=== PATIENT | female | born 1965 | race Caucasian/White ===

== ENCOUNTER 2016-06-28 06:13 | Inpatient (IN) | payer OTHER ==
--- NOTE | 2016-06-20 21:29 | HP ---
HISTORY AND PHYSICAL: DATE OF ADMISSION: 06/28/16 She is entering [facility] on 06/28/16 for a left total hip replacement. CHIEF COMPLAINT: Left hip pain. HISTORY OF PRESENT ILLNESS: The patient has had left hip pain for many years and in the past year, has become more and more disabling. Her walking distance is extremely limited. She has difficulty putting on her socks and shoes and difficulty with stairs. She is on meloxicam 15 mg and has felt that has been of some help. She has been using a walker and is also using a quad cane. She is cared for by Dr. Savage. PAST MEDICAL HISTORY: In the past, she has had bronchitis, but no pneumonia. She has not had a cancer. PAST SURGICAL HISTORY: 1. Status post partial hysterectomy. 2. She had a gastric sleeve that was not successful for her. 3. 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 MEDICATIONS: 1. Mobic. 2. Omeprazole 40 mg. 3. Depakote 500 mg twice a day. 4. Citracal. 5. Vitamin B12. 6. Vitamin D. 7. Iron. 8. Ibuprofen. ALLERGIES: No known drug allergies. SOCIAL HISTORY: She is a former smoker. REVIEW OF SYSTEMS: No history of heart attack. No history of chest pain. She feels that she can walk up 2 flights of stairs without chest pain and without shortness of breath. PHYSICAL EXAMINATION GENERAL: Overweight and not acutely distressed. Antalgic gait on the left. She can walk on her toes. She has a little difficulty walking on her heels. She can do a partial squat. The left hip abduction 30 degrees, flexion 85 degrees with pain, ER 20 degrees pain, and IR neutral pain. She is able to do a straight leg raise with left lateral hip region pain. VITAL SIGNS: Also height 5 feet 11 inches, 300 pounds, temperature 97.9, blood pressure 155/104, and the pulse is 83. EXTREMITIES: The left lower extremity has small incisions from her vein strippings. The left posterior tibial pulse is not palpable including Doppler. The left dorsalis pedis pulse is present by Doppler. The left popliteal pulse is 2+. IMPRESSION: Severe arthritis of the left hip. PLAN: The plan is for a left total hip replacement. The goals, risks, and complications of the surgical care have been reviewed with the patient by me in the office and her questions were answered. We will be careful regarding the possible past history of DVT. [id number]/[facility] #: [id number] MTDD
[~2016-06-28 06:13] MED LIST: Buffered Lidocaine 1% SYR 3ML* 3 ML/SYR SYRINGE INTRADERM ONE; Dexamethasone IV* 4 MG/ML 1 ML (4 MG) IV SLOW PU ONE; Dexamethasone IV* 4 MG/ML 1 ML (4 MG) ONE; ceFAZolin 1 GM in Dextrose (*) 1 GM/50 ML BAG IVPB ONE; ceFAZolin 2 GM PREMIX(*) 2 GM/50 ML BAG IVPB ONE
[2016-06-28] MEDS ORDERED: Midazolam* 1 MG/ML 5 ML VIAL (5 MG) ONE ×2 (07:29→08:00)
[2016-06-28] MEDS ORDERED: Bupivacaine 0.5% SDV PF* 30 ML VIAL ONE (07:29)
[2016-06-28] MEDS ORDERED: KETAMINE HCL* 50 MG/ML 10 ML VIAL ONE (07:29)
[2016-06-28] MEDS ORDERED: Morphine PF AMP (0.5MG/ML)* 5 MG/10 ML AMP ONE (07:29)
[2016-06-28] MEDS ORDERED: Phenylephrine IV* 40 MCG/ML 10 ML SYRINGE ONE (07:30)
[2016-06-28] MEDS ORDERED: Propofol* 10 MG/ML 20 ML BTL IV PUSH ONE ×2 (07:30→09:19)
[2016-06-28] MEDS ORDERED: Ondansetron INJ* 2 MG/ML VIAL ONE (07:30)
[2016-06-28] MEDS ORDERED: oxyCODONE/Acetamin 5/325 MG* TAB PO PRN ×4 (08:36)
[2016-06-28] MEDS ORDERED: fentaNYL* 50 MCG/ML 2 ML VIAL (100 MCG VIAL) IV PRN (08:36)
[2016-06-28] MEDS ORDERED: DiMENhydriNATE IV* 50 MG/ML VIAL IV PUSH PRN (08:36)
[2016-06-28] MEDS ORDERED: Nalbuphine* 20 MG/ML 1 ML VIAL IV PRN ×2 (08:36)
[2016-06-28] MEDS ORDERED: Ondansetron INJ* 2 MG/ML VIAL IV PRN ×2 (08:36)
[2016-06-28] MEDS ORDERED: Naloxone* 0.4 MG/ML 1 ML VIAL IV PRN (08:36)
[2016-06-28] MEDS ORDERED: HYDROmorphone* 1 MG/ML 1 ML SYR IV PRN (08:36)
[2016-06-28] MEDS ORDERED: EPHEDrine (Pressors)* 50 MG/ML VIAL ONE (09:13)
[2016-06-28] MEDS ORDERED: Magnesium Hydroxide LIQ* 30 ML UDC PO PRN (11:25)
[2016-06-28] MEDS ORDERED: Morphine INJ* 2 MG/ML 1 ML SYRINGE IV PRN (11:25)
[2016-06-28] MEDS ORDERED: Acetaminophen TAB* 325 MG PO PRN (11:25)
--- NOTE | 2016-06-28 13:19 | RAD ---
INDICATION: Status post total left hip replacement surgery. COMPARISON: Comparison is made with a prior x-ray study from January 13, 2016. TECHNIQUE: An AP view of the pelvis was obtained. FINDINGS: The patient is status post total left hip replacement surgery. The bones and prostheses are in normal alignment. There is a small amount of air within the adjacent soft tissues consistent with the patient's recent surgery. There is moderate to severe osteoarthritic change in the right hip. IMPRESSION: STATUS POST TOTAL LEFT HIP REPLACEMENT SURGERY.
[2016-06-28] MEDS: Scopolamine 1.5 mg* PATCH TRANSDERM SCH ×2 (13:23→17:09)
[2016-06-28] MEDS: Ropivacaine* 300 MG in NS 0.9% 250 ML* 240 ML EPIDURAL SCH (13:23)
[2016-06-28] MEDS: ceFAZolin 1 GM in Dextrose (*) 1 GM/50 ML BAG IVPB SCH ×2 (16:16→23:51)
[2016-06-28] MEDS ORDERED: Warfarin TAB(*) 7.5 MG PO ONE (17:00)
[2016-06-28] MEDS: Omeprazole CAP* 20 MG PO SCH (20:48)
[2016-06-28] MEDS: Divalproex ER TAB(*) 500 MG PO SCH (22:21)
--- NOTE | 2016-06-29 01:32 | OP ---
DATE OF OPERATION: 06/28/16 - ROOM #341 DATE OF : 69 SURGICAL CARE: Left hip, 06/28/16. SURGEON: Kale England MD ASSISTANTS: edilma Santiago and CHETNA Jessica ANESTHESIOLOGIST: Dr. Daniel Cheema. ANESTHESIA: Spinal, Duramorph, epidural. PRE-OP DIAGNOSIS: Severe arthritis of the left hip. POST-OP DIAGNOSIS: Severe arthritis of the left hip. OPERATIVE PROCEDURE: Left total hip replacement. COMPONENTS: Jayashree Continuum cup cluster holes 58-mm outer diameter with 1 screw. There is an elevated liner, high density polyethylene with the elevation located posteriorly and the liner was for a 32 head. On the femoral side, the M /L Taper standard stem reduced neck size 9. The head is a ceramic head, 32-mm outer diameter +0. COMPLICATIONS: There were no complications. DRAINS: There were no drains. BLOOD LOSS: 250 mL. REPLACEMENT: Crystalloid fluids. CONDITION: Stable to the recovery room. OPERATIVE INDICATION: Severe arthritis of the left hip. She has had problems for years. It has been no longer responsive to nonoperative care and a left total hip replacement was recommended for the severe arthritis with disability. DESCRIPTION OF PROCEDURE: The patient was brought to the operating room and placed on the operating table in a supine position, then into a sitting position for the spinal, Duramorph, and epidural and then to the supine position , a Kramer catheter was inserted. The patient was then placed in the right lateral position with 2 folded blankets under the right greater trochanter and in the lateral position, the pelvis was secured over the ASIS and the sacrum with a hip positioner. The groin was carefully sealed off. The downside right leg was checked to see that there was no pressure on the peroneal nerve at the fibular head and neck, and the left hip was then given a preliminary chlorhexidine prep and the left hip was then given a final prep down to the foot. After prepping, draping and sealing off, we did our universal protocol time-out confirming Danielle Brody and our plan for left total hip replacement. We all agreed and we proceeded. A skin incision was made 5 to 6 inches in length from the greater trochanter going distally for 2 to 3 inches and curving proximally and posteriorly for 2 to 3 inches. Skin and subcu divided down to the deep fascia. Careful hemostasis was checked and achieved throughout the case utilizing electrocautery. Charnley retractor was carefully inserted. There was scarring around the greater trochanter and the trochanteric bursa. The gluteus medius and minimus were each retracted anteriorly with a blunt Hohmann retractor. The piriformis and conjoint tendon were carefully identified posteriorly. Each was marked with a #2 Surgidac and this did juan f the underlying capsule as well. Careful posterior approach of the hip was done with careful hemostasis. The hip was dislocated without difficulty. The femoral neck was marked, a little less than a fingerbreadth proximal to the lesser trochanter using the neck cutting guide for the M/L taper stem. The head and neck was removed. The head was completely eburnated on the weightbearing portion and loss of cartilage marked in the surrounding regions. On the acetabular site, she had a large medial osteophyte, a large anterior osteophyte. The acetabulum was retracted with sharp Hohmann's anteriorly and posteriorly, blunt Hohmann superiorly and inferiorly. The remains of the labrum were removed posteriorly, superiorly, and anteriorly. The medial osteophyte was removed with osteotomes and the medial soft tissues were also removed. Reaming was then done, 44, 46, 48, and 50. At 50, we had nice bleeding subchondral and cancellous bone. The acetabulum was cleaned several times with pulsed saline, emptied, and dried. A 50 Continuum cup was impacted into position in 45 degrees of abduction, 20 degrees of anteversion obtaining a nice tight fit. One screw was placed superiorly and an elevated liner was placed posteriorly. Some remaining anterior osteophyte was removed with osteotomes and rongeurs at this stage. Attention was then turned to the femoral side. On the femoral side, we used a canal finder with a box osteotome. Broaching was done 4 through 9 and at 9, we had a nice tight fit. We did a trial reduction with a 9, reduced neck, +0 head with nice fit of the soft tissues and these were chosen. The M/L Taper standard stem, size 9, reduced neck was impacted into position in 15 to 20 degrees of anteversion and the trunnion was clean and a +0 ceramic head was applied. A trial reduction had already been done with each size components and the tissues were very satisfactory. The hip was irrigated several times with several liters of pulsed saline irrigation. The soft tissues were swabbed with clean laps and hemostasis was checked and achieved with electrocautery again. Following putting the hip into position, we had a negative push, pull and extension, nice concentric fit, no tendency towards dislocation with ER, flexion was past 90 degrees with stability and the hip allowed to adduction and internal rotation of 30 degrees prior to dislocation. Closure was completed after careful hemostasis was achieved. The piriformis, conjoint tendon, posterior flap reattached to the posterior-superior greater trochanter through two drill holes using #2 Surgidac. The fascia samuel was closed with interrupted #1 Polysorb in [id number] fashion and #2 in [id number] fashion as well. The deep and superficial subcu closed with 0 Polysorb and then 2-0 Polysorb and then jefferson on the skin and the wound was irrigated several times during the closure with saline and soft tissue swab with clean laps. Dressing after jefferson with Betadine and washing and drying with Betadine-soaked release, sterile gauze, ABD pads, and then paper tape. The patient was returned to the hospital bed in the recovery room in stable and satisfactory condition having tolerated the procedure very well. CC: Dr. Savage, [facility]* [id number]/[facility] #: [id number] [facility]
[2016-06-29] MEDS ORDERED: oxyCODONE/Acetamin 5/325 MG* TAB PO PRN (06:00)
[2016-06-29] MEDS ORDERED: oxyCODONE TAB* 5 MG TAB PO PRN (06:00)
[2016-06-29] MEDS ORDERED: Ondansetron TAB* 4 MG PO PRN (06:00)
[2016-06-29] MEDS ORDERED: diPHENhydraMINE IV* 50 MG/ML 1 ml VIAL (BENADRYL) IV PRN (06:00)
[2016-06-29] MEDS: oxyCODONE/Acetamin 5/325 MG* TAB PO PRN ×4 (06:11→20:44)
[2016-06-29 07:07] LABS: Hematocrit 28 % (35-47); Hemoglobin 9.5 g/dl (12.0-16.0)
[2016-06-29 07:22] LABS: Calcium 8.4 mg/dL (8.6-10.3); EGFR African American 169.4 (>60); EGFR Non-African American 131.7 (>60); Potassium 3.9 mmol/L (3.5-5.0)
[2016-06-29] MEDS: Omeprazole CAP* 20 MG PO SCH ×2 (08:35→20:45)
[2016-06-29] MEDS: Docusate CAP* 100 MG PO SCH ×2 (08:35→20:44)
[2016-06-29] MEDS: ceFAZolin 1 GM in Dextrose (*) 1 GM/50 ML BAG IVPB SCH (08:35)
[2016-06-29] MEDS: Ropivacaine* 300 MG in NS 0.9% 250 ML* 240 ML EPIDURAL SCH (09:40)
[2016-06-29] MEDS ORDERED: Enoxaparin(*) 40 MG/0.4 ML SYR SUBCUT SCH (10:00)
[2016-06-29 13:51] LABS: Hematocrit 28 % (35-47); Hemoglobin 9.4 g/dl (12.0-16.0)
[2016-06-29] MEDS ORDERED: Warfarin TAB(*) 5 MG PO ONE (17:00)
[2016-06-29] MEDS: Divalproex ER TAB(*) 500 MG PO SCH (17:26)
[2016-06-30] MEDS: oxyCODONE/Acetamin 5/325 MG* TAB PO PRN ×3 (00:46→12:00)
[2016-06-30 05:59] LABS: Hematocrit 23 % (35-47)
[2016-06-30] MEDS: Omeprazole CAP* 20 MG PO SCH (09:25)
[2016-06-30] MEDS: Docusate CAP* 100 MG PO SCH (09:25)
[2016-06-30] MEDS ORDERED: Warfarin TAB(*) 5 MG PO ONE (11:00)
[2016-06-30 12:36] VITALS: BP 119/49
[2016-06-30 12:46] LABS: Hematocrit 28 % (35-47); Hemoglobin 9.4 g/dl (12.0-16.0)
[2016-07-01] MEDS ORDERED: Scopolomine PATCH Remove* 1 NOTE MISC PATCH OFF ONE (08:42)
== END 2016-06-30 15:40 | disposition home health service (06) | DRG 470 ==
LOC: AA 06:13 → SSU 13:48
PROVIDERS: ADMIT Orthopaedic Surgery; ATTEND Orthopaedic Surgery
PROC: 0SRB04A Replacement of Left Hip Joint with Ceramic on Polyethylene Synthetic Substitute, Uncemented, Open Approach (ICD-10-PCS; principal; 2016-06-28 07:30)
PROC: 30233N1 Transfusion of Nonautologous Red Blood Cells into Peripheral Vein, Percutaneous Approach (ICD-10-PCS; 2016-06-30)
DX: M16.12 Unilateral primary osteoarthritis, left hip (principal); Z68.41 Body mass index [BMI] 40.0-44.9, adult; D62 Acute posthemorrhagic anemia; E66.9 Obesity, unspecified; G47.30 Sleep apnea, unspecified; G43.909 Migraine, unspecified, not intractable, without status migrainosus; M25.752 Osteophyte, left hip; Z90.711 Acquired absence of uterus with remaining cervical stump; Z98.84 Bariatric surgery status; Z87.891 Personal history of nicotine dependence
CPT/HCPCS: 36415; 72170; 80048; 85014; 85018; 85610; 86850; 86900; 86901; 86922; 88304; 88311; 94760; A9270-GY; C1713; C1776; J0690; J1100; J1240; J1650; J2250; J2300; J2405; J2704; J2795; P9040

== ENCOUNTER 2017-01-21 13:41 | Emergency (ER) | payer OTHER ==
[2017-01-21 13:51] VITALS: BP 183/93
--- OUTSIDE RECORDS SUMMARY | 2017-01-21 14:55 | XMS REPORT ---
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 03/13/2007 BP Systolic 136 mmHg BP Diastolic 76 mmHg Body Temperature 98.5 F Height 71 inches 5'11" Weight 282.50 lb BMI (Body Mass Index) 39.4 kg/m2 02/19/2007 BP Systolic 124 mmHg BP Diastolic 86 mmHg Body Temperature 98.5 F Height 71 inches 5'11" Weight 284.00 lb BMI (Body Mass Index) 39.6 kg/m2 09/26/2006 BP Systolic 140 mmHg BP Diastolic 82 mmHg Height 71 inches 5'11" Weight 272.00 lb BMI (Body Mass Index) 37.9 kg/m2 08/14/2006 BP Systolic 124 mmHg BP Diastolic 78 mmHg Height 71 inches 5'11" 08/02/2006 BP Systolic 118 mmHg BP Diastolic 68 mmHg Height 71 inches 5'11" Weight 273.50 lb BMI (Body Mass Index) 38.1 kg/m2 08/01/2006 BP Systolic 130 mmHg BP Diastolic 80 mmHg Height 71 inches 5'11" Weight 273.50 lb BMI (Body Mass Index) 38.1 kg/m2 07/26/2006 BP Systolic 110 mmHg BP Diastolic 76 mmHg Height 71 inches 5'11" 07/12/2006 BP Systolic 126 mmHg BP Diastolic 78 mmHg Height 71 inches 5'11" 06/20/2006 BP Systolic 128 mmHg BP Diastolic 74 mmHg Height 71 inches 5'11" Weight 274.50 lb BMI (Body Mass Index) 38.3 kg/m2 06/06/2006 BP Systolic 128 mmHg BP Diastolic 80 mmHg Height 71 inches 5'11" Weight 269.00 lb BMI (Body Mass Index) 37.5 kg/m2 Last Menstrual Period 0 05/23/2006 BP Systolic 128 mmHg BP Diastolic 76 mmHg Height 71 inches 5'11" Weight 266.00 lb BMI (Body Mass Index) 37.1 kg/m2 04/21/2006 BP Systolic 140 mmHg BP Diastolic 90 mmHg Height 71 inches 5'11" Weight 266.00 lb BMI (Body Mass Index) 37.1 kg/m2 03/10/2006 BP Systolic 130 mmHg BP Diastolic 88 mmHg Height 71 inches 5'11" Weight 264.00 lb BMI (Body Mass Index) 36.8 kg/m2 02/21/2006 BP Systolic 128 mmHg BP Diastolic 84 mmHg Body Temperature 99.7 F Height 71 inches 5'11" Last Menstrual Period 0 02/08/2006 BP Systolic 110 mmHg BP Diastolic 76 mmHg Heart Rate 76 /min reg Respiratory Rate 12 /min not laboured Body Temperature 99.1 F Height 71 inches 5'11" Weight 265.00 lb BMI (Body Mass Index) 37.0 kg/m2 Last Menstrual Period 0 02/02/2006 BP Systolic 120 mmHg BP Diastolic 78 mmHg Height 71 inches 5'11" Weight 268.00 lb BMI (Body Mass Index) 37.4 kg/m2 Last Menstrual Period 0 11/02/2005 BP Systolic 130 mmHg BP Diastolic 86 mmHg Height 71 inches 5'11" Weight 273.00 lb BMI (Body Mass Index) 38.1 kg/m2 09/19/2005 BP Systolic 126 mmHg BP Diastolic 78 mmHg Height 71 inches 5'11" Weight 274.00 lb BMI (Body Mass Index) 38.2 kg/m2 08/19/2005 BP Systolic 132 mmHg BP Diastolic 76 mmHg Height 71 inches 5'11" Weight 272.50 lb BMI (Body Mass Index) 38.0 kg/m2 08/12/2005 Heart Rate 80 /min Respiratory Rate 16 /min Height 71 inches 5'11" Last Menstrual Period [id number] variable menses bc=vasectomy 08/12/2005 BP Systolic 122 mmHg BP Diastolic 80 mmHg Body Temperature 97.1 F Height 71 inches 5'11" Weight 272.00 lb BMI (Body Mass Index) 37.9 kg/m2 08/11/2005 BP Systolic 142 mmHg BP Diastolic 80 mmHg Body Temperature 99.1 F Height 71 inches 5'11" Weight 270.00 lb BMI (Body Mass Index) 37.7 kg/m2 06/07/2005 BP Systolic 132 mmHg BP Diastolic 82 mmHg Height 71 inches 5'11" Weight 267.00 lb BMI (Body Mass Index) 37.2 kg/m2 05/18/2005 BP Systolic 140 mmHg BP Diastolic 78 mmHg Height 71 inches 5'11" Weight 267.00 lb BMI (Body Mass Index) 37.2 kg/m2 05/06/2005 BP Systolic 140 mmHg BP Diastolic 80 mmHg Height 71 inches 5'11" Weight 264.00 lb BMI (Body Mass Index) 36.8 kg/m2 05/05/2005 BP Systolic 120 mmHg BP Diastolic 90 mmHg Body Temperature 98.7 F Height 71 inches 5'11" Weight 265.00 lb BMI (Body Mass Index) 37.0 kg/m2 05/03/2005 BP Systolic 126 mmHg BP Diastolic 80 mmHg Body Temperature 97.9 F Height 71 inches 5'11" Weight 263.00 lb BMI (Body Mass Index) 36.7 kg/m2 11/30/2004 BP Systolic 122 mmHg BP Diastolic 80 mmHg Body Temperature 98.6 F Height 71 inches 5'11" Weight 268.00 lb BMI (Body Mass Index) 37.4 kg/m2 06/24/2004 BP Systolic 138 mmHg BP Diastolic 80 mmHg Height 71 inches 5'11" 06/22/2004 BP Systolic 120 mmHg lg cuff BP Diastolic 78 mmHg lg cuff Height 71 inches 5'11" Weight 258.00 lb BMI (Body Mass Index) 36.0 kg/m2 03/25/2004 Height 71 inches 5'11" Weight 258.00 lb BMI (Body Mass Index) 36.0 kg/m2 03/12/2004 Body Temperature 98.8 F Height 71 inches 5'11" Weight 264.00 lb BMI (Body Mass Index) 36.8 kg/m2 01/09/2004 BP Systolic 140 mmHg BP Diastolic 82 mmHg Heart Rate 80 /min Respiratory Rate 16 /min Height 71 inches 5'11" Weight 257.00 lb BMI (Body Mass Index) 35.8 kg/m2 Last Menstrual Period 0 2003 BP Systolic 150 mmHg BP Diastolic 86 mmHg Weight 258.00 lb 06/13/2003 BP Systolic 110 mmHg BP Diastolic 80 mmHg Heart Rate 90 /min Respiratory Rate 16 /min Weight 245.00 lb 03/07/2003 BP Systolic 132 mmHg BP Diastolic 82 mmHg Heart Rate 70 /min Respiratory Rate 16 /min Weight 252.00 lb 01/01/2003 BP Systolic 122 mmHg BP Diastolic 82 mmHg Heart Rate 70 /min rrr Respiratory Rate 16 /min Weight 259.00 lb down 5 from oct. 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 Urine Micro Inhouse 12/21/2015 Ua WBC - 4 Ua RBC 0-1 4 Ua Casts - 4 Ua Epi 2-4 4 Ua Other - 4 Ua Glucose - 4 Ua Bilirubin - 4 Ua Ketones - 4 Ua Specific [place] 1.015 4 Ua Blood - 4 Ua PH 6.5 4 Ua Protein - 4 Ua Urobilinogen - 4 Ua Nitrite - 4 Ua Leukocytes - 4 Culture Urine Inhouse 12/21/2015 Colonies 11/22 4 CBC Auto Diff 07/13/2015 White Blood Count 6.8 10^3/uL 3.5-10.8 Red Blood Count 3.78 10^6/uL Low 4.0-5.4 Hemoglobin 11.8 g/dL Low 12.0-16.0 Hematocrit 35 % 35-47 Mean Corpuscular Volume 93 fL 80-97 Mean Corpuscular Hemoglobin 31 pg 27-31 Mean Corpuscular HGB Conc 33 g/dL 31-36 Red Cell Distribution Width 13 % 10.5-15 Platelet Count 254 10^3/uL 150-450 Mean Platelet Volume 9 um3 7.4-10.4 Abs Neutrophils 3.8 10^3/uL 1.5-7.7 Abs Lymphocytes 2.4 10^3/uL 1.0-4.8 Abs Monocytes 0.4 10^3/uL 0-0.8 Abs Eosinophils 0.1 10^3/uL 0-0.6 Abs Basophils 0.1 10^3/uL 0-0.2 Abs Nucleated RBC 0.01 10^3/uL Granulocyte % 56.4 % 38-83 Lymphocyte % 35.8 % 25-47 Monocyte % 5.8 % 1-9 Eosinophil % 1.2 % 0-6 Basophil % 0.8 % 0-2 Nucleated Red Blood Cells % 0.1 Liver Function Panel 07/13/2015 Total Protein 6.6 g/dL 6.4-8.9 Albumin 4.1 g/dL 3.2-5.2 Globulin 2.5 g/dL 2-4 Albumin/Globulin Ratio 1.6 1-3 Total Bilirubin 0.40 mg/dL 0.2-1.0 Direct Bilirubin 0.10 mg/dL 0.03-0.18 Indirect Bilirubin 0.3 mg/dL 0.3-1.0 Alkaline Phosphatase 44 U/L 34-104 Alt 11 U/L 7-52 Ast 12 U/L Low 13-39 Laboratory test finding 01/16/2015 Culture Throat Rapid Screen negative Culture Throat negative Urine Micro Inhouse 08/11/2014 Ua WBC - 5 Ua RBC 0-2 5 Ua Casts - 5 Ua Epi 1-2 5 Ua Other - 5 Ua Glucose - 5 Ua Bilirubin - 5 Ua Ketones - 5 Ua Specific [place] 1.010 5 Ua Blood NH Tr 5 Ua PH 6.0 5 Ua Protein - 5 Ua Urobilinogen - 5 Ua Nitrite - 5 Ua Leukocytes - 5 Laboratory test finding 01/22/2014 Troponin-I < 0.02 ng/mL 6 Laboratory test finding 01/22/2014 Magnesium 2.0 mg/dL 1.8-2.4 Thyroid Stim Hormone 3.65 uIU/mL 0.36-3.74 Liver Function Tests 01/22/2014 Total Protein 7.8 g/dL 6.4-8.2 Albumin 3.7 g/dL 3.4-5.0 Globulin 4.1 g/dL 1.9-4.3 Alb/Glob 0.9 ratio Bilirubin,Total 0.6 mg/dL 0.2-1.0 Bilirubin,Direct < 0.1 mg/dL 0.0-0.2 Bilirubin,Indirect 0.5 mg/dL 0.0-0.9 Sgot/Ast 27 U/L 15-37 SGPT/Alt 43 U/L 12-78 Alkaline Phosphatase 53 U/L 45-117 CBS W/Automated Diff 01/22/2014 White Blood Count 6.8 K/uL 3.1-10.7 Red Blood Count 4.14 M/uL 3.90-5.40 Hemoglobin 13.2 gm/dL 11.6-15.8 Hematocrit 38.1 % 36.0-46.1 Mean Cell Volume 92.0 fl 80.9-99.0 Mean Corpuscular HGB 31.9 pg 25.9-32.7 Mean Corpuscular HGB Conc 34.6 g/dL High 30.8-34.3 Platelet Count 233 K/uL 155-360 Red Cell Distri Width SD 40.1 fl 3-47 Red Cell Distri Width %CV 12.2 % 11.7-14.4 Mean Platelet Volume 10.5 fL 8.9-12.4 Neut% 60.6 % 40.4-72.8 Lymph % 28.5 % 17.0-46.1 [place] % 9.0 % 4.3-13.2 Eo% 1.3 % 0.0-6.6 Bas% 0.6 % 0.0-1.1 Neut# 4.10 K/uL 1.0-7.0 Lymph # 1.93 K/uL 0.8-3.4 [place] # 0.61 K/uL 0.3-0.9 Eos # 0.09 K/uL 0.0-0.5 Baso # 0.04 K/uL 0.0-0.1 Laboratory test finding 01/22/2014 CK 49 U/L 26-192 7 Troponin-I < 0.02 ng/mL 8 Basic Metabolic Panel 01/22/2014 Glucose 93 mg/dL 74-106 BUN 15 mg/dL 7-18 Creatinine 0.7 mg/dL 0.6-1.3 Glom Filtration Rate, Estimate >60 mL/min >60 If >60 mL/min >60 9 BUN/Creat 21.4 ratio Sodium 139 mmol/L 136-145 Potassium 3.9 mmol/L 3.5-5.1 Chloride 106 mmol/L 98-107 Carbon Dioxide 25 mmol/L 21-32 Anion Gap 12 mEq/L 8-16 Calcium 8.9 mg/dL 8.5-10.1 Laboratory test finding 11/09/2013 Ferritin 54.3 ng/mL 11-307 Vitamin B12 > 1450 pg/mL High 180-914 10 Folate > 20.00 ng/mL >3.99 Vitamin D, 25 Hydroxy 11/09/2013 25-Hydroxy Vitamin D2 <4.0 ng/mL 25-Hydroxy Vitamin D3 31 ng/mL 25-Hydroxy Vitamin D Total 31 ng/mL 11 Laboratory test finding 11/09/2013 Vitamin B1 Whole Blood 145 nmol/L 70- 180 12 Vitamin E 11/09/2013 Vitamin E 9.8 mg/L 5.5 - 17.0 13 Iron & Iron Binding 11/09/2013 Iron 103 g/dL 50-212 Capacity Unsaturated Iron Binding 222 g/dL Total Iron Binding Capacity 325 g/dL 250-450 % Iron Saturation 32 % 15-55 Comp Metabolic Panel 11/09/2013 Sodium 138 mmol/L 133-145 Potassium 4.4 mmol/L 3.7-5.6 Chloride 105 mmol/L 101-111 Co2 Carbon Dioxide 30 mmol/L 22-32 Anion Gap 3 mmol/L 2-11 Glucose 93 mg/dL 70-100 Blood Urea Nitrogen 10 mg/dL 6-24 Creatinine 0.59 mg/dL 0.51-0.95 BUN/Creatinine Ratio 16.9 8-20 Calcium 9.1 mg/dL 8.6-10.3 Total Protein 7.2 g/dL 6.4-8.9 Albumin 4.1 g/dL 3.2-5.2 Globulin 3.1 g/dL 2-4 Albumin/Globulin Ratio 1.3 1-3 Total Bilirubin 0.70 mg/dL 0.2-1.0 Alkaline Phosphatase 55 U/L 34-104 Alt 11 U/L 7-52 Ast 13 U/L 13-39 Egfr Non- 109.7 >60 Egfr 141.1 >60 14 CBC Auto Diff 11/09/2013 White Blood Count 5.6 10^3/uL 4.8-10.8 Red Blood Count 3.99 10^6/uL Low 4.0-5.4 Hemoglobin 12.4 g/dL 12.0-16.0 Hematocrit 36 % 35-47 Mean Corpuscular Volume 90 fL 80-97 Mean Corpuscular Hemoglobin 31 pg 27-31 Mean Corpuscular HGB Conc 35 g/dL 31-36 Red Cell Distribution Width 12 % 10.5-15 Platelet Count 243 10^3/uL 150-450 Mean Platelet Volume 7 um3 Low 7.4-10.4 Abs Neutrophils 3.0 10^3/uL 1.5-7.7 Abs Lymphocytes 2.1 10^3/uL 1.0-4.8 Abs Monocytes 0.4 10^3/uL 0-0.8 Abs Eosinophils 0.1 10^3/uL 0-0.6 Abs Basophils 0.1 10^3/uL 0-0.2 Abs Nucleated RBC 0 10^3/uL Granulocyte % 52.6 % 38-83 Lymphocyte % 37.6 % 25-47 Monocyte % 6.8 % 1-9 Eosinophil % 2.0 % 0-6 Basophil % 1.0 % 0-2 Nucleated Red Blood Cells % 0 Laboratory test finding 08/12/2013 Culture Throat Rapid Screen neg Culture Throat neg Urine Micro Inhouse 06/11/2013 Ua WBC 1-3 Ua RBC 0-2 Ua Casts - Ua Epi 1-3 Ua Other - Ua Glucose - Ua Bilirubin - Ua Ketones - Ua Specific [place] 1.010 Ua Blood - Ua PH 6.0 Ua Protein - Ua Urobilinogen - Ua Nitrite - Ua Leukocytes sm Vitamin E 05/04/2013 Vitamin E 10.3 mg/L 5.5 - 17.0 15 Laboratory test finding 05/04/2013 Vitamin B1 Whole 144 nmol/L 70-180 16 Blood Vitamin D, 25 Hydroxy 05/04/2013 25-Hydroxy Vitamin <4.0 ng/mL D2 25-Hydroxy Vitamin D3 35 ng/mL 25-Hydroxy Vitamin D Total 35 ng/mL 17 Laboratory test finding 05/04/2013 Ferritin 55.5 ng/mL 11-307 18 Vitamin B12 1342 pg/mL High 180-914 19 Folate > 20.00 ng/mL >3.99 20 Iron & Iron Binding Capacity 05/04/2013 Iron 111 g/dL 50-212 Unsaturated Iron Binding 229 g/dL Total Iron Binding Capacity 340 g/dL 250-450 % Iron Saturation 33 % 15-55 Comp Metabolic Panel 05/04/2013 Sodium 138 mmol/L 133-145 Potassium 4.5 mmol/L 3.7-5.6 Chloride 105 mmol/L 101-111 Co2 Carbon Dioxide 28 mmol/L 22-32 Anion Gap 5 mmol/L 2-11 Glucose 85 mg/dL 70-100 Blood Urea Nitrogen 15 mg/dL 6-24 Creatinine 0.59 mg/dL 0.51-0.95 BUN/Creatinine Ratio 25.4 High 8-20 Calcium 9.1 mg/dL 8.6-10.3 Total Protein 6.9 g/dL 6.4-8.9 Albumin 4.2 g/dL 3.2-5.2 Globulin 2.7 g/dL 2-4 Albumin/Globulin Ratio 1.6 1-3 Total Bilirubin 0.60 mg/dL 0.2-1.0 Alkaline Phosphatase 49 U/L 34-104 Alt 15 U/L 7-52 Ast 16 U/L 13-39 Egfr Non- 110.2 >60 Egfr 141.8 >60 21 CBC Auto Diff 05/04/2013 White Blood Count 4.5 10^3/uL Low 4.8-10.8 Red Blood Count 4.00 10^6/uL 4.0-5.4 Hemoglobin 12.3 g/dL 12.0-16.0 Hematocrit 36 % 35-47 Mean Corpuscular Volume 89 fL 80-97 Mean Corpuscular Hemoglobin 31 pg 27-31 Mean Corpuscular HGB Conc 35 g/dL 31-36 Red Cell Distribution Width 13 % 10.5-15 Platelet Count 240 10^3/uL 150-450 Mean Platelet Volume 8 um3 7.4-10.4 Abs Neutrophils 2.0 10^3/uL 1.5-7.7 Abs Lymphocytes 1.9 10^3/uL 1.0-4.8 Abs Monocytes 0.4 10^3/uL 0-0.8 Abs Eosinophils 0.1 10^3/uL 0-0.6 Abs Basophils 0.1 10^3/uL 0-0.2 Abs Nucleated RBC 0 10^3/uL Granulocyte % 44.7 % 38-83 Lymphocyte % 42.8 % 25-47 Monocyte % 8.5 % 1-9 Eosinophil % 2.7 % 0-6 Basophil % 1.3 % 0-2 Nucleated Red Blood Cells % 0.1 Comp Metabolic Panel 12/07/2012 Sodium 137 mmol/L 133-145 Potassium 3.7 mmol/L 3.5-5.0 Chloride 103 mmol/L 101-111 Co2 Carbon Dioxide 28.0 mmol/L 22-32 Anion Gap 6.0 mmol/L 2-11 Glucose 103 mg/dL High 70-100 Blood Urea Nitrogen 8 mg/dL 6-24 Creatinine 0.60 mg/dL 0.50-1.40 BUN/Creatinine Ratio 13.3 8-20 Calcium 9.1 mg/dL 8.1-9.9 Total Protein 8.0 g/dL 6.2-8.1 Albumin 4.4 g/dL 3.6-5.4 Globulin 3.6 g/dL 2-4 Albumin/Globulin Ratio 1.2 1-3 Total Bilirubin 1.0 mg/dL 0.4-1.5 Alkaline Phosphatase 71 U/L 30-110 Alt 95 U/L High 14-54 Ast 32 U/L 12-42 Egfr Non- 108.1 >60 Egfr 139.0 >60 22 Laboratory test finding 12/07/2012 Lipase 25 U/L 22-51 Troponin I 0 ng/mL 0-0.06 23 C Reactive Protein 0.8 mg/dL High Less than 0.5 CBC Auto Diff 12/07/2012 White Blood Count 7.6 10^3/uL 4.8-10.8 Red Blood Count 4.45 10^6/uL 4.0-5.4 Hemoglobin 12.6 g/dL 12.0-16.0 Hematocrit 39 % 35-47 Mean Corpuscular Volume 88 fL 80-97 Mean Corpuscular Hemoglobin 28 pg 27-31 Mean Corpuscular HGB Conc 32 g/dL 31-36 Red Cell Distribution Width 13 % 10.5-15 Platelet Count 264 10^3/uL 150-450 Mean Platelet Volume 8 um3 7.4-10.4 Abs Neutrophils 5.4 10^3/uL 1.5-7.7 Abs Lymphocytes 1.4 10^3/uL 1.0-4.8 Abs Monocytes 0.6 10^3/uL 0-0.8 Abs Eosinophils 0.1 10^3/uL 0-0.6 Abs Basophils 0.1 10^3/uL 0-0.2 Abs Nucleated RBC 0 10^3/uL Manual Differential 12/07/2012 Neutrophil % 67 % 38-83 Band % 1 % 0-8 Lymphocytes % 19 % Low 25-47 Monocytes % 9 % 0-13 Eosinophils % 1 % 0-6 Basophil % 1 % 0-2 Reactive Lymph % 2 % 0-6 RBC Morphology Normal Normal Laboratory test finding 12/07/2012 Blood Urea Nitrogen 7 mg/dL 6-24 Creatinine 12/07/2012 Creatinine 0.70 mg/dL 0.50-1.40 Egfr Non- 90.5 >60 Egfr 116.4 >60 24 Urine Micro Inhouse 12/07/2012 Ua WBC 6-8 Ua RBC 1-3 Ua Casts - Ua Epi 3-4 Ua Other - Ua Glucose - Ua Bilirubin - Ua Ketones lg Ua Specific [place] 1.005 Ua Blood nh tr Ua PH 6.0 Ua Protein - Ua Urobilinogen - Ua Nitrite - Ua Leukocytes sm CBC Auto Diff 11/19/2012 White Blood Count 7.6 10^3/uL 4.8-10.8 Red Blood Count 4.04 10^6/uL 4.0-5.4 Hemoglobin 12.2 g/dL 12.0-16.0 Hematocrit 37 % 35-47 Mean Corpuscular Volume 90 fL 80-97 Mean Corpuscular Hemoglobin 30 pg 27-31 Mean Corpuscular HGB Conc 34 g/dL 31-36 Red Cell Distribution Width 13 % 10.5-15 Platelet Count 294 10^3/uL 150-450 Mean Platelet Volume 8 um3 7.4-10.4 Abs Neutrophils 4.5 10^3/uL 1.5-7.7 Abs Lymphocytes 2.4 10^3/uL 1.0-4.8 Abs Monocytes 0.6 10^3/uL 0-0.8 Abs Eosinophils 0.1 10^3/uL 0-0.6 Abs Basophils 0 10^3/uL 0-0.2 Abs Nucleated RBC 0 10^3/uL Granulocyte % 59.7 % 38-83 Lymphocyte % 31.0 % 25-47 Monocyte % 7.5 % 1-9 Eosinophil % 1.3 % 0-6 Basophil % 0.5 % 0-2 Nucleated Red Blood Cells % 0 Comp Metabolic Panel 11/19/2012 Sodium 137 mmol/L 133-145 Potassium 4.1 mmol/L 3.5-5.0 Chloride 104 mmol/L 101-111 Co2 Carbon Dioxide 26.0 mmol/L 22-32 Anion Gap 7.0 mmol/L 2-11 Glucose 87 mg/dL 70-100 Blood Urea Nitrogen 12 mg/dL 6-24 Creatinine 0.70 mg/dL 0.50-1.40 BUN/Creatinine Ratio 17.1 8-20 Calcium 9.3 mg/dL 8.1-9.9 Total Protein 7.0 g/dL 6.2-8.1 Albumin 3.9 g/dL 3.6-5.4 Globulin 3.1 g/dL 2-4 Albumin/Globulin Ratio 1.3 1-3 Total Bilirubin 0.7 mg/dL 0.4-1.5 Alkaline Phosphatase 68 U/L 30-110 Alt 38 U/L 14-54 Ast 33 U/L 12-42 Egfr Non- 90.5 >60 Egfr 116.4 >60 25 Total Protein 24HR Urine 10/24/2012 Urine Random Total Protein 8 mg/dL Urine Total Protein/24HR 168 mg/24Hr High 0-165 Urine Collection Time 24 Urine Total Volume 2100 mL Catecholamine 24HR Urine Fract 10/15/2012 Urine Collection Duration 24 h Urine Total Volume 3350 mL Urine Norepinephrine 80 mcg/24h 15-80 Urine Epinephrine 6.4 mcg/24h <21 Urine Dopamine 335 mcg/24h 65-400 26 Laboratory test finding 10/11/2012 Genital Culture (SEE NOTE) 27 Ua Inhouse 10/11/2012 Ua Glucose - Ua Bilirubin - Ua Ketones - Ua Specific [place] 1.025 Ua Blood - Ua PH 6.0 Ua Protein - Ua Urobilinogen - Ua Nitrite - Ua Leukocytes - Comp Metabolic Panel 10/11/2012 Sodium 138 mmol/L 133-145 Potassium 4.1 mmol/L 3.5-5.0 Chloride 104 mmol/L 101-111 Co2 Carbon Dioxide 27.0 mmol/L 22-32 Anion Gap 7.0 mmol/L 2-11 Glucose 111 mg/dL High 70-100 Blood Urea Nitrogen 10 mg/dL 6-24 Creatinine 0.50 mg/dL 0.50-1.40 BUN/Creatinine Ratio 20.0 8-20 Calcium 9.0 mg/dL 8.1-9.9 Total Protein 6.4 g/dL 6.2-8.1 Albumin 3.7 g/dL 3.6-5.4 Globulin 2.7 g/dL 2-4 Albumin/Globulin Ratio 1.4 1-3 Total Bilirubin 0.5 mg/dL 0.4-1.5 Alkaline Phosphatase 74 U/L 30-110 Alt 25 U/L 14-54 Ast 20 U/L 12-42 Egfr Non- 133.4 >60 Egfr 171.6 >60 28 Laboratory test finding 10/02/2012 Insulin Level 16.6 mcIU/mL 2.6 - 24.9 29 Laboratory test finding 10/01/2012 Glucose Quantitative 85 Hemoglobin A1c 5.9 Ua Inhouse 10/01/2012 Ua Glucose - Ua Bilirubin - Ua Ketones - Ua Specific [place] 1.020 Ua Blood - Ua PH 6.0 Ua Protein - Ua Urobilinogen - Ua Nitrite - Ua Leukocytes - CBC No Diff 09/19/2012 White Blood Count 7.9 10^3/uL 4.8-10.8 Red Blood Count 3.94 10^6/uL Low 4.0-5.4 Hemoglobin 12.1 g/dL 12.0-16.0 Hematocrit 35 % 35-47 Mean Corpuscular Volume 89 fL 80-97 Mean Corpuscular Hemoglobin 31 pg 27-31 Mean Corpuscular HGB Conc 35 g/dL 31-36 Red Cell Distribution Width 12 % 10.5-15 Platelet Count 312 10^3/uL 150-450 Mean Platelet Volume 8 um3 7.4-10.4 Comp Metabolic Panel 09/19/2012 Sodium 137 mmol/L 133-145 Potassium 4.0 mmol/L 3.5-5.0 Chloride 104 mmol/L 101-111 Co2 Carbon Dioxide 26.0 mmol/L 22-32 Anion Gap 7.0 mmol/L 2-11 Glucose 117 mg/dL High 70-100 Blood Urea Nitrogen 7 mg/dL 6-24 Creatinine 0.60 mg/dL 0.50-1.40 BUN/Creatinine Ratio 11.7 8-20 Calcium 9.3 mg/dL 8.1-9.9 Total Protein 6.8 g/dL 6.2-8.1 Albumin 3.8 g/dL 3.6-5.4 Globulin 3.0 g/dL 2-4 Albumin/Globulin Ratio 1.3 1-3 Total Bilirubin 0.7 mg/dL 0.4-1.5 Alkaline Phosphatase 83 U/L 30-110 Alt 36 U/L 14-54 Ast 27 U/L 12-42 Egfr Non- 108.6 >60 Egfr 139.7 >60 30 Laboratory test finding 09/19/2012 TSH (Thyroid Stimulating 2.90 miu/mL 0.34-5.60 Horm) CBC Auto Diff 09/03/2012 White Blood Count 7.0 10^3/uL 4.8-10.8 Red Blood Count 4.06 10^6/uL 4.0-5.4 Hemoglobin 12.9 g/dL 12.0-16.0 Hematocrit 36 % 35-47 Mean Corpuscular Volume 89 fL 80-97 Mean Corpuscular Hemoglobin 32 pg High 27-31 Mean Corpuscular HGB Conc 35 g/dL 31-36 Red Cell Distribution Width 13 % 10.5-15 Platelet Count 282 10^3/uL 150-450 Mean Platelet Volume 8 um3 7.4-10.4 Abs Neutrophils 4.0 10^3/uL 1.5-7.7 Abs Lymphocytes 2.2 10^3/uL 1.0-4.8 Abs Monocytes 0.5 10^3/uL 0-0.8 Abs Eosinophils 0.2 10^3/uL 0-0.6 Abs Basophils 0.1 10^3/uL 0-0.2 Abs Nucleated RBC 0 10^3/uL Granulocyte % 58.0 % 38-83 Lymphocyte % 31.8 % 25-47 Monocyte % 6.5 % 1-9 Eosinophil % 2.9 % 0-6 Basophil % 0.8 % 0-2 Nucleated Red Blood Cells % 0 Liver Function Panel 09/03/2012 Total Protein 6.7 g/dL 6.2-8.1 Albumin 3.7 g/dL 3.6-5.4 Globulin 3.0 g/dL 2-4 Albumin/Globulin Ratio 1.2 1-3 Total Bilirubin 0.5 mg/dL 0.4-1.5 Direct Bilirubin 0.1 mg/dL 0.1-0.5 Indirect Bilirubin 0.4 mg/dL 0.3-1.0 Alkaline Phosphatase 78 U/L 30-110 Alt 39 U/L 14-54 Ast 26 U/L 12-42 Laboratory test finding 08/08/2012 Esophageal Biopsy See Note 31 Laboratory test finding 12/26/2011 Follicle Stimulating 7.71 MIU/ML 32 Hormone Lipid Profile 11/05/2011 Triglyceride 90 mg/dL 40-200 (Trig/Chol/HDL) Cholesterol 168 mg/dL Less Than 200 33 High Density Lipoprotein 29 mg/dL Low 40-60 34 Cholesterol/HDL Ratio 5.79 AVERAGE High 1-4.44 Low Density Lipoprotein 121 mg/dL High Less Than 100 35 CBC Auto Diff 11/05/2011 White Blood Count 7.2 CUMM 4.8-10.8 Red Cell Count 4.26 CUMM 4.2-5.4 Hemoglobin 14.0 g/dL 12.0-16.0 Hematocrit 39 % 35-47 Mean Corpuscular Volume 92 um3 79-97 Mean Corpuscular Hemoglob 33 pg High 27-31 Mean Corpuscular HGB [place] 36 g/dL 32-36 Redcell Distribution WDTH 13 % 10.5-15 Platelet Count 235 CUMM 150-450 Mean Platelet Volume 8.4 um3 7.4-10.4 Gran % 57.8 % 38-83 Lymph % 32.3 % 20-45 Mononuclear % 6.9 % 1-9 Eosinophil % 2.2 % 0-6 Basophil % 0.8 % 0-2 Abs Lymphs 2.3 1.0-4.8 Abs Mononuclear 0.5 0-0.8 Absolute Neutrophil Count 4.1 1.5-7.7 Abs Eosinophils 0.2 0-0.6 Abs Basophils 0.1 0-0.2 Laboratory test finding 11/05/2011 Erythrocyte Sed Rate 24 MM/HR High 0- 15 TSH 1.54 MIU/ML 0.34-5.60 Xray 06/25/2010 X-Ray, Lumbosacral Spine, Ap & Lat Minimum 4 Views wnl 36 X-Ray, Hip, Complete, Min. Of 2 Views, LT MINIMAL OA 36 Type And Screen 01/14/2009 Patient Blood Type A POSITIVE 37 Antibody Screen NEGATIVE 37 Specimen Discard Date 01/28/09 37, 38 Laboratory test finding 01/14/2009 (HCG) Serum NEGATIVE Negative 37, 39 Hemoglobin/Hematacrit 01/14/2009 Hemoglobin 13.1 g/dL 12.0-16.0 37 Hematocrit 39 % 35-47 37 Laboratory test finding 09/30/2008 TSH 1.74 MIU/ML 0.34-5.60 Comp Metabolic Panel 09/30/2008 Sodium 138 mmol/L 135-145 Potassium 4.5 mmol/L 3.5-5.0 Chloride 109 mmol/L 101-111 Co2 (Carbon Dioxide) 24.0 mmol/L 22-32 Anion Gap 5.0 mmol/L 2-11 40 Glucose 104 mg/dL High 70-100 41 BUN 9 mg/dL 6-24 Creatinine 0.50 mg/dL 0.50-1.40 One Over Creatinine 2.00 BUN/Creatinine Ratio 18.0 8-20 Calcium 8.9 mg/dL 8.1-9.9 42 Total Protein 6.6 GM/DL 6.2-8.1 Albumin 3.9 GM/DL 3.6-5.4 Globulin 2.7 GM/DL 2-4 Albumin/Globulin Ratio 1.4 1-3 Bilirubin Total 0.3 mg/dL Low 0.4-1.5 43 Alkaline Phosphatase 71 U/L 30-110 Alt (SGPT) 18 U/L 14-54 Ast (Sgot) 16 U/L 12-42 eGFR Non- 145.2 > 60 eGFR 175.7 > 60 44 CBC With Manual Diff 09/30/2008 White Blood Count 7.3 CUMM 4.8-10.8 Red Cell Count 4.24 CUMM 4.2-5.4 Hemoglobin 13.2 g/dL 12.0-16.0 Hematocrit 38 % 35-47 Mean Corpuscular Volume 91 um3 79-97 Mean Corpuscular Hemoglob 31 pg 27-31 Mean Corpuscular HGB Cone 34 g/dL 32-36 Redcell Distribution WDTH 12 % 10.5-15 Platelet Count 272 CUMM 150-450 Mean Platelet Volume 8.0 um3 7.4-10.4 Polysegmented Neutrophil 57 % 38-83 Lymphocyte 36 % 25-47 Monocyte 5 % 0-13 Eosenophil 2 % 0-6 Absolute Neutrophil Count 4.1 RBC Morphology NORMAL Laboratory test finding 09/29/2008 Cytology PAP Normal 45 Laboratory test finding 08/14/2007 Erythrocyte Sed Rate 25 MM/HR High 0- 15 CPK (Creatine Kinase) 139 U/L 0-170 Comp Metabolic Panel 08/14/2007 Sodium 141 mmol/L 135-145 Potassium 4.3 mmol/L 3.5-5.0 Chloride 108 mmol/L 101-111 Co2 (Carbon Dioxide) 26.0 mmol/L 22-32 Anion Gap 7.0 mmol/L 2-11 46 Glucose 96 mg/dL 70-105 BUN 11 mg/dL 6-24 Creatinine 0.9 mg/dL 0.5-1.4 One Over Creatinine 1.11 BUN/Creatinine Ratio 12.2 8-20 Calcium 9.1 mg/dL 8.1-9.9 47 Total Protein 7.1 GM/DL 6.2-8.1 Albumin 4.0 GM/DL 3.6-5.4 Globulin 3.1 GM/DL 2-4 Albumin/Globulin Ratio 1.3 1-3 Bilirubin Total 0.7 mg/dL 0.4-1.5 Alkaline Phosphatase 69 U/L 30-110 Alt (SGPT) 19 U/L 14-54 Ast (Sgot) 18 U/L 12-42 CBC With Manual Diff 08/14/2007 White Blood Count 8.1 CUMM 4.8-10.8 Red Cell Count 4.37 CUMM 4.2-5.4 Hemoglobin 13.5 g/dL 12.0-16.0 Hematocrit 39 % 35-47 Mean Corpuscular Volume 90 um3 79-97 Mean Corpuscular Hemoglob 31 pg 27-31 Mean Corpuscular HGB Cone 35 g/dL 32-36 Redcell Distribution WDTH 13 % 10.5-15 Platelet Count 281 CUMM 150-450 Mean Platelet Volume 9.2 um3 7.4-10.4 Polysegmented Neutrophil 59 % 38-83 Band Neutrophil 3 % 0-8 Lymphocyte 32 % 5-47 Monocyte 6 % 0-13 Absolute Neutrophil Count 5.0 Anisocytosis SLIGHT Culture Urine Inhouse 03/02/2007 Colonies no growth 48 Urine Micro Inhouse 03/02/2007 Urine Microscopic Inhouse see result notes 48 Ua Inhouse 03/02/2007 Ua Glucose - 48 Ua Bilirubin - 48 Ua Ketones - 48 Ua Specific [place] 1.030 48 Ua Blood - 48 Ua PH 5.0 48 Ua Protein - 48 Ua Urobilinogen - 48 Ua Nitrite - 48 Ua Leukocytes sm 48 Ua Inhouse 02/19/2007 Ua Glucose - Ua Bilirubin - Ua Ketones - Ua Specific [place] 1.005 Ua Blood - Ua PH 5.0 Ua Protein - Ua Urobilinogen - Ua Nitrite - Ua Leukocytes - Culture Urine Inhouse 02/19/2007 Colonies >30,000 Laboratory test finding 02/21/2006 Urine Microscopic Inhouse 1-2 WBC'S Ua Inhouse 02/21/2006 Ua Glucose - Ua Bilirubin - Ua Ketones - Ua Specific [place] 1.010 Ua Blood - Ua PH 8.0 Ua Protein - Ua Urobilinogen - Ua Nitrite - Ua Leukocytes TRACE Laboratory test finding 02/21/2006 Wet Prep NEG 49 Rigo NEG Laboratory test finding 02/02/2006 TSH 1.46 MIU/ML 0.34-5.60 CBC With Electronic Diff 02/02/2006 White Blood Count 7.3 CUMM 4.8-10.8 Abs Basophils 0 0-0.2 Abs Eosinophils 0.2 0-0.6 Absolute Neutrophil Count 4.3 1.5-7.7 Abs Lymphs 2.3 1.0-4.8 Abs Mononuclear 0.4 0-0.8 Basophil % 0.5 % 0-2 Hematocrit 40 % 35-47 Hemoglobin 13.8 g/dL 12.0-16.0 Eosinophil % 2.3 % 0-6 Gran % 59.0 % 38-83 Lymph % 32.1 % 20-45 Mean Corpuscular HGB Cone 35 g/dL 32-36 Mean Corpuscular Hemoglob 32 pg High 27-31 Mean Corpuscular Volume 91 um3 79-97 Mean Platelet Volume 8.2 um3 7.4-10.4 Mononuclear % 6.1 % 1-9 Platelet Count 292 CUMM 150-450 Red Cell Count 4.39 CUMM 4.2-5.4 Redcell Distribution WDTH 12 % 10.5-15 Lipid Profile 08/31/2005 Cholesterol/HDL Ratio 6.33 AVERAGE High 1-4.44 50 (Trig/Chol/HDL) Cholesterol 171 mg/dL Less Than 200 50, 51 Triglyceride 85 mg/dL 40-200 50 High Density Lipoprotein 27 mg/dL Low 40-60 50, 52 Low Density Lipoprotein 127 mg/dL High Less Than 100 50, 53 Ua Inhouse 08/12/2005 Ua Glucose neg 54 Ua Bilirubin neg 54 Ua Ketones neg 54 Ua Specific [place] 1.020 54 Ua Blood 2+ 54 Ua PH 6.0 54 Ua Protein neg 54 Ua Urobilinogen neg 54 Ua Nitrite neg 54 Ua Leukocytes neg 54 Laboratory test finding 08/12/2005 Urine Microscopic Inhouse see notes 54 CBC With Electronic Diff 08/10/2005 White Blood Count 7.9 CUMM 4.8-10.8 Abs Basophils 0 0-0.2 Abs Eosinophils 0.2 0-0.6 Absolute Neutrophil Count 4.6 1.5-7.7 Abs Lymphs 2.6 1.0-4.8 Abs Mononuclear 0.5 0-0.8 Basophil % 0.5 % 0-2 Hematocrit 37 % 35-47 Hemoglobin 12.9 g/dL 12.0-16.0 Eosinophil % 2.2 % 0-6 Gran % 58.0 % 38-83 Lymph % 33.3 % 20-45 Mean Corpuscular HGB Cone 35 g/dL 32-36 Mean Corpuscular Hemoglob 31 pg 27-31 Mean Corpuscular Volume 90 um3 79-97 Mean Platelet Volume 8.2 um3 7.4-10.4 Mononuclear % 6.0 % 1-9 Platelet Count 335 CUMM 150-450 Red Cell Count 4.13 CUMM Low 4.2-5.4 Redcell Distribution WDTH 12 % 10.5-15 Comp Metabolic Panel 08/10/2005 One Over Creatinine 1.42 Anion Gap 5.0 mmol/L 2-11 55 Albumin/Globulin Ratio 1.4 1-3 Albumin 3.8 GM/DL 3.6-5.4 Alkaline Phosphatase 73 U/L 30-110 Alt (SGPT) 16 U/L 14-54 Ast (Sgot) 16 U/L 12-42 BUN 10 mg/dL 6-24 Calcium 8.9 mg/dL 8.7-10.2 Chloride 105 mmol/L 101-111 Co2 (Carbon Dioxide) 27.0 mmol/L 22-32 Globulin 2.8 GM/DL 2-4 Glucose 91 mg/dL 70-105 Potassium 3.9 mmol/L 3.5-5.0 Sodium 137 mmol/L 135-145 Bilirubin Total 0.5 mg/dL 0.4-1.5 Total Protein 6.6 GM/DL 6.2-8.1 BUN/Creatinine Ratio 14.3 8-20 Creatinine 0.7 mg/dL 0.5-1.4 Laboratory test finding 08/10/2005 Erythrocyte Sed Rate 25 MM/HR High 0- 15 Amylase 58 U/L 30-125 Ua Inhouse 08/10/2005 Ua Glucose neg Ua Bilirubin neg Ua Ketones neg Ua Specific [place] 1.015 Ua Blood neg Ua PH 5.0 Ua Protein neg Ua Urobilinogen neg Ua Nitrite neg Ua Leukocytes neg Xray 07/12/2005 Transvaginal Sonogram NOT RECEIVED Laboratory test finding 06/07/2005 Pap Smear SEE REPORT Ua Inhouse 06/07/2005 Ua Glucose NEG Ua Bilirubin NEG Ua Ketones NEG Ua Specific [place] 1.015 Ua Blood NEG Ua PH 5.0 Ua Protein NEG Ua Urobilinogen NEG Ua Nitrite NEG Ua Leukocytes NEG Laboratory test finding 05/03/2005 Monospot NEGATIVE Negative Comp Metabolic Panel 05/03/2005 One Over Creatinine 1.25 Anion Gap 10.0 mmol/L 2-11 56 Albumin/Globulin Ratio 1.3 1-3 Albumin 4.1 GM/DL 3.6-5.4 Alkaline Phosphatase 72 U/L 30-110 Alt (SGPT) 22 U/L 14-54 Ast (Sgot) 18 U/L 12-42 BUN 7 mg/dL 6-24 Calcium 9.4 mg/dL 8.7-10.2 Chloride 106 mmol/L 101-111 Co2 (Carbon Dioxide) 24.0 mmol/L 22-32 Globulin 3.2 GM/DL 2-4 Glucose 85 mg/dL 70-105 Potassium 4.5 mmol/L 3.5-5.0 Sodium 140 mmol/L 135-145 Bilirubin Total 0.4 mg/dL 0.4-1.5 Total Protein 7.3 GM/DL 6.2-8.1 BUN/Creatinine Ratio 8.8 8-20 Creatinine 0.8 mg/dL 0.5-1.4 CBC With Electronic Diff 05/03/2005 White Blood Count 9.4 CUMM 4.8-10.8 Abs Basophils 0 0-0.2 Abs Eosinophils 0.1 0-0.6 Absolute Neutrophil Count 5.9 1.5-7.7 Abs Lymphs 2.8 1.0-4.8 Abs Mononuclear 0.5 0-0.8 Basophil % 0.4 % 0-2 Hematocrit 43 % 35-47 Hemoglobin 14.8 g/dL 12.0-16.0 Eosinophil % 1.2 % 0-6 Gran % 62.7 % 38-83 Lymph % 30.0 % 20-45 Mean Corpuscular HGB Cone 35 g/dL 32-36 Mean Corpuscular Hemoglob 31 pg 27-31 Mean Corpuscular Volume 90 um3 79-97 Mean Platelet Volume 8.1 um3 7.4-10.4 Mononuclear % 5.7 % 1-9 Platelet Count 348 CUMM 150-450 Red Cell Count 4.74 CUMM 4.2-5.4 Redcell Distribution WDTH 12 % 10.5-15 Laboratory test finding 05/03/2005 Culture Throat Rapid Screen NEG Ua Inhouse 05/03/2005 Ua Glucose NEG Ua Bilirubin NEG Ua Ketones NEG Ua Specific [place] 1.010 Ua Blood NEG Ua PH 5.0 Ua Protein NEG Ua Urobilinogen NEG Ua Nitrite NEG Ua Leukocytes NEG Laboratory test finding 05/03/2005 Culture Throat Neg GC/Chlamydia Dna Probe 12/02/2004 Chlamydia By Dna Probe NEGATIVE Negative 57 GC By Dna Probe NEGATIVE Negative 58 CBC With Electronic Diff 11/30/2004 White Blood Count 10.1 CUMM 4.8-10.8 Abs Basophils 0.1 0-0.2 Abs Eosinophils 0.2 0-0.6 Absolute Neutrophil Count 6.2 1.5-7.7 Abs Lymphs 3.2 1.0-4.8 Abs Mononuclear 0.5 0-0.8 Basophil % 0.6 % 0-2 Hematocrit 41 % 35-47 Hemoglobin 14.0 g/dL 12.0-16.0 Eosinophil % 1.8 % 0-6 Gran % 61.2 % 38-83 Lymph % 31.5 % 20-45 Mean Corpuscular HGB Cone 34 g/dL 32-36 Mean Corpuscular Hemoglob 31 pg 27-31 Mean Corpuscular Volume 91 um3 79-97 Mean Platelet Volume 8.2 um3 7.4-10.4 Mononuclear % 4.9 % 1-9 Platelet Count 311 CUMM 150-450 Red Cell Count 4.48 CUMM 4.2-5.4 Redcell Distribution WDTH 12 % 10.5-15 Culture Urine Inhouse 11/30/2004 Presumptive NEG Colonies NEG Laboratory test finding 11/30/2004 Urine Microscopic Inhouse EPI'S Ua Inhouse 11/30/2004 Ua Glucose NEG Ua Bilirubin NEG Ua Ketones NEG Ua Specific [place] 1.020 Ua Blood NEG Ua PH 6.5 Ua Protein NEG Ua Urobilinogen NEG Ua Nitrite NEG Ua Leukocytes TRACE Comp Metabolic Panel 11/30/2004 One Over Creatinine 1.42 Anion Gap 6.0 mmol/L 2-11 59 Albumin/Globulin Ratio 1.2 1-3 Albumin 3.8 GM/DL 3.6-5.4 Alkaline Phosphatase 70 U/L 30-110 Alt (SGPT) 21 U/L 14-54 Ast (Sgot) 20 U/L 12-42 BUN 8 mg/dL 6-24 Calcium 9.4 mg/dL 8.7-10.2 Chloride 106 mmol/L 101-111 Co2 (Carbon Dioxide) 26.0 mmol/L 22-32 Globulin 3.1 GM/DL 2-4 Glucose 96 mg/dL 70-105 Potassium 4.1 mmol/L 3.5-5.0 Sodium 138 mmol/L 135-145 Bilirubin Total 0.5 mg/dL 0.4-1.5 Total Protein 6.9 GM/DL 6.2-8.1 BUN/Creatinine Ratio 11.4 8-20 Creatinine 0.7 mg/dL 0.5-1.4 Laboratory test finding 11/30/2004 Erythrocyte Sed Rate 18 MM/HR High 0- 15 Ua Inhouse 06/22/2004 Ua Glucose NEG Ua Bilirubin NEG Ua Ketones NEG Ua Specific [place] 1.010 Ua Blood NEG Ua PH 7.5 Ua Protein NEG Ua Urobilinogen NEG Ua Nitrite NEG Ua Leukocytes NEG Laboratory test finding 03/15/2004 Culture Throat Rapid Screen NEG Culture Throat NEG CBC With Electronic Diff 12/20/2002 Platelet Count 298 CUMM 150-450 60 White Blood Count 6.6 CUMM 4.8-10.8 60 Abs Basophils 0.1 0-0.2 60 Abs Eosinophils 0.2 0-0.6 60 Abs Grans 3.3 1.5-7.7 60 Abs Lymphs 2.5 1.0-4.8 60 Abs Mononuclear 0.5 0-0.8 60 Basophil % 1.4 % 0-2 60 Hematocrit 42 % 35-47 60 Hemoglobin 14.0 g/dL 12.0-16.0 60 Eosinophil % 2.9 % 0-6 60 Gran % 50.0 % 38-83 60 Lymph % 38.4 % 20-45 60 Mean Corpuscular HGB Cone 33 g/dL 32-36 60 Mean Corpuscular Hemoglob 31 pg 27-31 60 Mean Corpuscular Volume 91 um3 79-97 60 Mean Platelet Volume 8.0 um3 7.4-10.4 60 Mononuclear % 7.3 % 1-9 60 Red Cell Count 4.59 CUMM 4.2-5.4 60 Redcell Distribution WDTH 12 % 10.5-15 60 Comp Metabolic Panel 12/20/2002 Anion Gap 7.0 mmol/L 2-11 60, 61 Albumin/Globulin Ratio 1.2 1-3 60 Albumin 3.8 GM/DL 3.6-5.4 60 BUN 8 mg/dL 6-24 60 Calcium 9.3 mg/dL 8.7-10.2 60 Chloride 106 mmol/L 101-111 60 Co2 (Carbon Dioxide) 27.0 mmol/L 22-32 60 Creatinine 0.7 mg/dL 0.5-1.4 60 Globulin 3.3 GM/DL 2-4 60 Glucose 95 mg/dL 70-105 60 Potassium 4.2 mmol/L 3.5-5.0 60 Sodium 140 mmol/L 135-145 60 Total Protein 7.1 GM/DL 6.2-8.1 60 BUN/Creatinine Ratio 11.4 8-20 60 Alkaline Phosphatase 60 U/L 30-110 60 Alt (SGPT) 17 U/L 14-54 60 Ast (Sgot) 16 U/L 12-42 60 Bilirubin Total 0.6 mg/dL 0.4-1.5 60 1 M19.91 2 THERAPEUTIC INR RANGE: 2.0 - 3.0 DVT, Pulmonary embolus, prophylaxis against venous thrombosis or systemic embolization in high risk patients. 2.5 - 3.5 Mechanical heart valves 3 S/O ENTERED 07/05/16 EXPIRES 01/05/17 PLS CALL STAT ORDERS TO [facility] [phone] FAX RESULTS TO [phone] PLS ACCEPT FOR S/O ON MONDAYS AND THURSDAYS 4 void, clear,yellow 5 fzlb-upzmy-ouczo yellow 6 0.0 - 0.045 ng/mL: Normal 0.046 - 0.5 ng/mL: Suggestive 0.6 - 1.5 ng/mL: Consistent 7 SENT RAINBOW 8 0.0 - 0.045 ng/mL: Normal 0.046 - 0.5 ng/mL: Suggestive 0.6 - 1.5 ng/mL: Consistent 9 Note: Persistent reduction for 3 months or more in an eGFR <60 mL/min/1.73 m2 defines CKD. Patients with eGFR values >/=60 mL/min/1.73 m2 may also have CKD if evidence of persistent proteinuria is present. The original MDRD equation for estimated GFR is not valid for patients less than 18 years of age. Additional information may be found at www.kdoqi.org. 10 Normal Range 180 to 914 Indeterminate Range 145 to 180 Deficient Range <145 11 -- REFERENCE VALUE -- 25-HYDROXY D TOTAL (D2+D3) Optimum levels in the healthy population are 20-50, patients with bone disease may benefit from higher levels within this range. Test Performed by: [place] [address] Merchant Patroller: Rodney Torres III, M.D. 12 Test Performed by: [place] [address] Merchant Patroller: Faith Lombardi, Ph.D. 13 Test Performed by: [place] [address] Merchant Patroller: Faith Lombardi, Ph.D. 14 Because ethnic data is not always readily available, this report includes an eGFR for both -Americans and non- Americans. The National Kidney Disease Education Program (NKDEP) does not endorse the use of the MDRD equation for patients that are not between the ages of 18 and 70, are , have extremes of body size, muscle mass, or nutritional status, or are non- or non-. According to the National Kidney Foundation, irrespective of diagnosis, the stage of the disease is based on the level of kidney function: Stage Description GFR(mL/min/1.73 m(2)) 1 Kidney damage with normal or decreased GFR 90 2 Kidney damage with mild decrease in GFR 60-89 3 Moderate decrease in GFR 30-59 4 Severe decrease in GFR 15-29 5 Kidney failure <15 (or dialysis) 15 Test Performed by: [place] [address] Merchant Patroller: Faith Lombardi, Ph.D. 16 Test Performed by: [place] [address] Merchant Patroller: Faith Lombardi, Ph.D. 17 -- REFERENCE VALUE -- 25-HYDROXY D TOTAL (D2+D3) Optimum levels in the healthy population are 20-50, patients with bone disease may benefit from higher levels within this range. Test Performed by: [address] [address] Merchant Patroller: Rodney Torres III, M.D. 18 FASTING 19 Normal Range 180 to 914 Indeterminate Range 145 to 180 Deficient Range <145 20 FASTING 21 Because ethnic data is not always readily available, this report includes an eGFR for both -Americans and non- Americans. The National Kidney Disease Education Program (NKDEP) does not endorse the use of the MDRD equation for patients that are not between the ages of 18 and 70, are , have extremes of body size, muscle mass, or nutritional status, or are non- or non-. According to the National Kidney Foundation, irrespective of diagnosis, the stage of the disease is based on the level of kidney function: Stage Description GFR(mL/min/1.73 m(2)) 1 Kidney damage with normal or decreased GFR 90 2 Kidney damage with mild decrease in GFR 60-89 3 Moderate decrease in GFR 30-59 4 Severe decrease in GFR 15-29 5 Kidney failure <15 (or dialysis) 22 Because ethnic data is not always readily available, this report includes an eGFR for both -Americans and non- Americans. The National Kidney Disease Education Program (NKDEP) does not endorse the use of the MDRD equation for patients that are not between the ages of 18 and 70, are , have extremes of body size, muscle mass, or nutritional status, or are non- or non-. According to the National Kidney Foundation, irrespective of diagnosis, the stage of the disease is based on the level of kidney function: Stage Description GFR(mL/min/1.73 m(2)) 1 Kidney damage with normal or decreased GFR 90 2 Kidney damage with mild decrease in GFR 60-89 3 Moderate decrease in GFR 30-59 4 Severe decrease in GFR 15-29 5 Kidney failure <15 (or dialysis) 23 Reference Range and Interpretation: TnI (ng/mL) Interpretation Less Than 0.06 ng/mL Not supportive of diagnosis of NV 0.06 - 0.50 ng/mL Indeterminate: suggest serial studies if clinically indicated. Greater than 0.5 ng/mL Consistent with diagnosis of NV 24 Because ethnic data is not always readily available, this report includes an eGFR for both -Americans and non- Americans. The National Kidney Disease Education Program (NKDEP) does not endorse the use of the MDRD equation for patients that are not between the ages of 18 and 70, are , have extremes of body size, muscle mass, or nutritional status, or are non- or non-. According to the National Kidney Foundation, irrespective of diagnosis, the stage of the disease is based on the level of kidney function: Stage Description GFR(mL/min/1.73 m(2)) 1 Kidney damage with normal or decreased GFR 90 2 Kidney damage with mild decrease in GFR 60-89 3 Moderate decrease in GFR 30-59 4 Severe decrease in GFR 15-29 5 Kidney failure <15 (or dialysis) 25 Because ethnic data is not always readily available, this report includes an eGFR for both -Americans and non- Americans. The National Kidney Disease Education Program (NKDEP) does not endorse the use of the MDRD equation for patients that are not between the ages of 18 and 70, are , have extremes of body size, muscle mass, or nutritional status, or are non- or non-. According to the National Kidney Foundation, irrespective of diagnosis, the stage of the disease is based on the level of kidney function: Stage Description GFR(mL/min/1.73 m(2)) 1 Kidney damage with normal or decreased GFR 90 2 Kidney damage with mild decrease in GFR 60-89 3 Moderate decrease in GFR 30-59 4 Severe decrease in GFR 15-29 5 Kidney failure <15 (or dialysis) 26 Test Performed by: [facility] - [address] [address] Merchant Patroller: Rodney Torres III, M.D. 27 RUN DATE: 10/14/12 [facility] LAB LIVE PAGE 1 RUN TIME: [address] [place] [id number] Specimen Inquiry Name: LAITH HANKINS : [address]: Kayy BASILIO Acct: [id number] Unit: [id number] AGE: 47 Location: [facility] Re10/11/12 SEX: F Status: REG REF SPEC: [id number] ELYSE: 10/11/12-164 [facility] DR: Kayy BASILIO REQ: [id number] RECD: 10/12/129615 STATUS: COMP _ SOURCE: VAGINAL SPDESC: ORDERED: Genital Culture QUERIES: Medent Number [id number] Procedure Result Verified Site Genital Culture Final 10/14/12- 1111 ML Organism 1 NORMAL NOLVIA Quantity 3+ END OF REPORT * ML=Testing performed at Main Lab DEPARTMENT OF PATHOLOGY, [address] [place] [address] Suman Hernandez M.D. Director [facility] Permit #[id number] 28 Because ethnic data is not always readily available, this report includes an eGFR for both -Americans and non- Americans. The National Kidney Disease Education Program (NKDEP) does not endorse the use of the MDRD equation for patients that are not between the ages of 18 and 70, are , have extremes of body size, muscle mass, or nutritional status, or are non- or non-. According to the National Kidney Foundation, irrespective of diagnosis, the stage of the disease is based on the level of kidney function: Stage Description GFR(mL/min/1.73 m(2)) 1 Kidney damage with normal or decreased GFR 90 2 Kidney damage with mild decrease in GFR 60-89 3 Moderate decrease in GFR 30-59 4 Severe decrease in GFR 15-29 5 Kidney failure <15 (or dialysis) 29 Test Performed by: [address] [address] Merchant Patroller: Rodney Torres III, M.D. 30 Because ethnic data is not always readily available, this report includes an eGFR for both -Americans and non- Americans. The National Kidney Disease Education Program (NKDEP) does not endorse the use of the MDRD equation for patients that are not between the ages of 18 and 70, are , have extremes of body size, muscle mass, or nutritional status, or are non- or non-. According to the National Kidney Foundation, irrespective of diagnosis, the stage of the disease is based on the level of kidney function: Stage Description GFR(mL/min/1.73 m(2)) 1 Kidney damage with normal or decreased GFR 90 2 Kidney damage with mild decrease in GFR 60-89 3 Moderate decrease in GFR 30-59 4 Severe decrease in GFR 15-29 5 Kidney failure <15 (or dialysis) 31 OPERATION/PROCEDURE Colonoscopy with biopsy DIAGNOSIS: PART 1: "COLON, RANDOM BIOPSIES": ISCHEMIC TYPE MUCOSAL CHANGES. PART 2: "SIGMOID COLON POLYPS, BIOPSY": HYPERPLASTIC POLYPS. PART 3: "RECTUM, POLYPECTOMY": HYPERPLASTIC POLYPS. PART 4: "DUODENUM, RANDOM BIOPSIES": SMALL BOWEL MUCOSA WITHOUT SIGNIFICANT PATHOLOGICAL ABNORMALITY. PART 5: "ESOPHAGUS, BIOPSIES": FRAGMENTS OF GASTRIC AND ESOPHAGEAL MUCOSA OF JUNCTIONAL ORIGIN DEMONSTRATING REACTIVE CHANGES IN A BACKGROUND INFLAMMATION CONSISTENT WITH ESOPHAGITIS AND GASTRITIS, NONSPECIFIC, MILD TO MODERATE. JUAREZ/praveen INTERPRETATION COMMENT Part 1: Localized ischemia includes resolving acute colitis, vascular, mechanical, diverticular sampling and drugs (NSAID). GROSS Part 1; "RANDOM COLON BIOPSIES". The specimen is received in an appropriately labeled container. This contains approximately ten rounded kaplan colored pieces of soft tissue measuring up to 0.4 cm.; filtered and submitted in toto within a single cassette. Part 2; "SIGMOID POLYPS". The specimen is received in an appropriately labeled container. This contains two rounded kaplan colored pieces of soft tissue measuring up to 0.4 and 0.7 cm.; filtered and submitted in toto within a single cassette. GROSS (Continued) Part 3; "RECTAL POLYPS". The specimen is received in an appropriately labeled container. This contains two rounded kaplan colored pieces of soft tissue measuring up to 0.3 cm.; filtered and submitted in toto within a single cassette. Part 4; "RANDOM DUODENAL BIOPSIES". The specimen is received in an appropriately labeled container. This contains five rounded kaplan colored pieces of soft tissue measuring up to 0.1-0.5 cm.; filtered and submitted in toto within a single cassette. Part 5; "ESOPHAGEAL BIOPSIES". The specimen is received in an appropriately labeled container. This contains seven rounded kaplan colored pieces of soft tissue measuring up to 0.3 cm.; filtered and submitted in toto within a single cassette. JW/clf MICROSCOPIC Part 1: Sections reveal eroded colonic mucosa with well-oriented colonic crypts, with abbreviated maturation of lining cells to the surface. The stroma contains a fibrous condensation with depletion of superficial goblet cells consistent with ischemic injury. Parts 2,3: Sections show colonic mucosa lined by an increased number of goblet cells. The glands have a serrated, saw tooth appearance. The nuclei are bland, and basal. Part 4: Sections reveal villiform mucosa with well-oriented crypts, with normal maturation of lining cells to the surface. The stroma contains a normal degree of lymphoplasmacytic infiltration. Part 5: Specimen is composed of a mixture of fragments from the esophagus, and stomach. In one piece, there is the combination of squamous and columnar superficial epithelium consistent with junctional mucosa. The squamous component is acanthotic and demonstrates mild spongiosis with exocytosis of inflammatory cells. The glandular component demonstrates mild reactive distortion, and branching associated with varying degrees of chronic inflammation. Goblet cell metaplasia characteristic of Flores type metaplasia is not observed. PRE OPERATIVE DIAGNOSIS Abdominal pain REVIEW CODE CODE: I DONAVAN Ivory MD 08/09/12 1201 32 Normally menstruating females - Follicular phase 3 - 9 - Mid-cycle peak 4 - 23 - Luteal phase 1 - 6 Postmenopausal females 16 - 114 33 CHOLESTEROL INTERPRETATION: Desirable: Less than 200 MG/DL Borderline-High Risk: 200-239 MG/DL High-Risk: 240 MG/DL and over 34 HDL INTERPRETATION: Undesirable: High Risk: Less than 40 MG/DL Desirable: Low Risk: Greater than 60 MG/DL 35 LDL INTERPRETATION: Low Risk Optimal Level: LDL Less than 100 MG/DL Near or Above Optimal: LDL 100-129 MG/DL Borderline High Risk: LDL 130-159 MG/DL High Risk: LDL 160-189 MG/DL Very High Risk: LDL Greater than 189 MG/DL 36 L/S spine films are unremarkable. [address] GREEN AT [phone] PRE-OP SURGERY IN [place] 01/21/09 38 PREADMISSION TESTING SAMPLES FOR BLOOD BANK WILL BE HELD FOR 14 DAYS FROM THE DATE OF COLLECTION *IF* THE FOLLOWING CRITERIA ARE MET: 1) THE PATIENT HAS *NOT* BEEN IN THE LAST 3 MONTHS. 2) THE PATIENT HAS *NOT* BEEN TRANSFUSED IN THE LAST 3 MONTHS. PREADMISSION TESTING SAMPLES WILL *NOT* BE HELD FOR 14 DAYS FROM PATIENTS WHO IN THE LAST 3 MONTHS: 1) HAVE BEEN 2) HAVE BEEN TRANSFUSED THESE PATIENTS *MUST* BE COLLECTED WITHIN 3 DAYS OF THE SURGERY DATE. 39 If is still suspected, please repeat test after 48 to 72 hours. . 40 Anion gap measurement may be of limited value in the presence of any alkalosis, especially in a combined acid base disorder. . 41 Note change in reference range as of 10/11/07. The change was based on recommendations from the [place] [employer]. 42 Please note change in reference range effective 07 . 43 A metabolite of Naproxen, O-desmethylnaproxen, has been shown to interfere with the Jendrassik-Maunaloa method for measuring total bilirubin. Samples from patients who have taken Naproxen have shown spurious elevation in total bilirubin levels. 44 Because ethnic data is not always readily available, this report includes an eGFR for both -Americans and non- Americans. The National Kidney Disease Education Program (NKDEP) does not endorse the use of the MDRD equation for patients that are not between the ages of 18 and 70, are , have extremes of body size, muscle mass, or nutritional status, or are non- or non-. According to the National Kidney Foundation, irrespective of diagnosis, the stage of the disease is based on the level of kidney function: Stage Description GFR(mL/min/1.73 m(2)) 1 Kidney damage with normal or decreased GFR 90 2 Kidney damage with mild decrease in GFR 60-89 3 Moderate decrease in GFR 30-59 4 Severe decrease in GFR 15-29 5 Kidney failure <15 (or dialysis) 45 ---- RUN DATE: 10/01/08 [facility] NMI LIVE PAGE 1 RUN TIME: 1237 Specimen Inquiry RUN USER: INTERFACE -- Name: NHILAITH J Status: REG REF Re09/29/08 Age/Sex: 42/F Unit#: [id number] Location: [facility] : [birth year] -- Specimen: [id number] SOUT Spec Date: 09/30/[address]: Eliceo johnson MD Spec Type: CYTOLOGY Received: 10/01/08 Copies to: SOURCE ECTOCERVICAL/ENDOCERVICAL Thin Prep with Reflex HPV Test PATIENT INFORMATION ACTUAL COLLECTION DATE: 09/30/08 ? No POST MENOPAUSAL? No HYSTERECTOMY? No LAST MENSTRUAL PERIOD: 08/28/08 ADEQUACY OF SPECIMEN Satisfactory for evaluation * Transformation zone component identified * DIAGNOSIS NEGATIVE FOR INTRAEPITHELIAL LESION OR MALIGNANCY * This Pap test was evaluated with the assistance of the siOPTICAPrep Pap Test Imaging System. The Pap Smear is a screening test designed to aid in the detection of premalign ant and malignant conditions of the uterine cervix. It is not a diagnostic procedure a nd should not be used as the sole means of detecting cervical cancer. Both false- positiv e and false-negative reports do occur. Depending on your risk status, a Pap smear jenny uld be obtained and evaluated every one to three years. Final Interpretation electronically signed by: Javier MAHAN(ASCP) 10/01/08 1236 -- -- DEPARTMENT OF PATHOLOGY, [address] [place] [address] [facility] Permit #[id number] Suman Hernandez M.D. Director Ernestine Phipps M.D. Sap Hana Architect Dir john paul -- 46 Anion gap measurement may be of limited value in the presence of any alkalosis, especially in a combined acid base disorder. . 47 Please note change in reference range effective 07 . 48 0-3 wbc, 4-5 epi, sediment 49 No trichomonads, no clue cells 50 FASTING 51 Classification: Desirable . 52 Classification: Low . 53 CALCULATED LDL APPROXIMATES THE VALUE OF A DIRECT LDL MEASUREMENT. Classification: Near or above optimal . 54 Micro: occ motile radha, 0-2 RBC, 0-2 WBC. SL 55 Anion gap measurement may be of limited value in the presence of any alkalosis, especially in a combined acid base disorder. . 56 Anion gap measurement may be of limited value in the presence of any alkalosis, especially in a combined acid base disorder. . 57 * This method is approved for detection of Chlamydia trachomatis in Endocervical, Male Urethral and Conjunctival Specimens only. POSITIVE RESULT IN A POPULATION WITH LOW PREVALENCE OF DISEASE SHOULD BE INTERPRETED PRESUMPTIVE; INTERPRET RESULTS IN LIGHT OF HISTORY PHYSICAL FINDINGS . 58 * This method is approved for detection of Neisseria Gonnorrhoeae in Endocervical and Male Urethral Specimens only. POSITIVE RESULT IN A POPULATION WITH LOW PREVALENCE OF DISEASE SHOULD BE INTERPRETED PRESUMPTIVE; INTERPRET RESULTS IN LIGHT OF HISTORY PHYSICAL FINDINGS. . 59 Anion gap measurement may be of limited value in the presence of any alkalosis, especially in a combined acid base disorder. . 60 hold for apt 61 Anion gap measurement may be of limited value in the presence of any alkalosis, especially in a combined acid base disorder. . Procedures Date CPT Code Description Status Comment 06/01/2016 92396 Electrocardiogram Complete Completed 01/13/2016 52613 Radiologic Exam Hip Unilateral Completed With Pelvis 2-3 Views 01/13/2016 64223 X-Ray, L-S Spine, Ap & Completed Lateral 01/20/2015 Mammogram Completed 2015:benign 11/04/13: Discussed mammo screening interval; pt elected for q2yr screens 03/28/2014 64894 SC/Im Injections Completed 12/07/2012 55959 SC/Im Injections Completed 12/07/2012 48240 Oximetry, Single Completed 12/07/2012 03621 X-Ray Chest Two Views Completed 07/21/2012 Colonoscopy Completed 07/2012: 4 small (up to 8mm) polyps; 1 bx showed ischemic changes 07/20/201029847 Inject/Drain Joint/Bursa Major Completed 06/25/2010 74682 X-Ray, Lumbar Spine Complete, Completed Obl 06/25/2010 90216 X-Ray Hip Two Or More Views Completed 01/29/2010 0 Payment Completed 03/24/2009 0 Payment Completed 09/28/2007 0 Payment Completed 04/12/2006 0 Payment Completed 08/10/2005 84301 X-Ray Abdomen, Single View Completed 06/07/2005 23850 Electrocardiogram Complete Completed 05/05/2005 73953 Bronchospasm Evaluation Pre Completed & Post 2003 86515 X-Ray Knee, Complete Completed Encounters Type Date Location Provider CPT E/M Dx Office Visit 01/03/2017 1:40p Main Office Taylor Quintero 04621 I80.01 I83.10 E66.01 Z68.41 Office Visit 11/28/2016 11:30a Main Office Eliceo Savage M.D. 14770 R19.7 N36.42 Z23 Z68.41 Office Visit 06/13/2016 12:55p Main Office Eliceo Savage M.D. 64381 H81.10 Office Visit 06/01/2016 3:00p Main Office Eliceo Savage M.D. 54750 Z01.818 M16.0 M25.552 K21.9 G43.009 G47.30 R19.7 F52.31 Office Visit 01/13/2016 3:30p Main Office Eliceo Savage M.D. 70798 M54.5 M54.17 M79.605 M79.604 M25.552 Office Visit 12/25/2015 2:30p Main Office Eliceo Savage M.D. 24322 M54.5 M54.17 M79.605 M79.604 R39.15 Office Visit 12/21/2015 3:25p Main Office Vazquze Vasquez M.D. 56422 M25.552 R35.0 E66.01 Z68.41 Office Visit 07/10/2015 4:45p Main Office Eliceo Savage M.D. 56847 K21.9 G43.009 G47.30 L29.9 Office Visit 01/16/2015 10:15a Main Office Eliceo Savage M.D. 43667 J03.90 Office Visit 01/09/2015 4:00p Main Office Eliceo Savage M.D. 08576 K21.9 G43.009 G47.30 Z12.31 Z23 Z68.41 E66.01 Office Visit 08/11/2014 4:30p Main Office Eliceo Savage M.D. 02861 530.81 724.5 Office Visit 07/08/2014 3:00p Main Office Eliceo Savage M.D. 46319 346.10 784.0 530.81 300.00 Office Visit 04/02/2014 2:15p Main Office Eliceo Savage M.D. 26510 723.1 728.85 719.58 Office Visit 03/28/2014 1:45p Main Office David Duran D.O. 93444 723.1 729.1 723.5 728.85 Office Visit 02/05/2014 3:00p Main Office Eliceo Savage M.D. 27913 346.10 786.50 300.00 278.00 Office Visit 01/25/2014 9:45a Main Office Eliceo Savage M.D. 45825 300.00 786.50 V04.81 V07.2 Office Visit 11/26/2013 4:30p Main Office Eliceo Savage M.D. 55292 346.10 530.81 Office Visit 11/04/2013 8:55a Main Office Eliceo Savage M.D. 20210 346.10 530.81 V76.10 Office Visit 10/04/2013 11:00a Main Office Eliceo Savage M.D. 21916 451.0 Office Visit 08/12/2013 3:45p Main Office Eliceo Savage M.D. 92125 784.1 Office Visit 06/11/2013 11:30a Main Office Eliceo Savage M.D. 14266 724.5 Office Visit 12/07/2012 10:15a Main Office Eliceo Savage M.D. 06675 724.5 786.52 789.06 558.9 Office Visit 11/02/2012 3:30p Main Office Eliceo Savage M.D. 64364 V70.0 787.91 536.3 790.21 788.43 788.41 596.51 530.81 346.10 V76.10 Office Visit 10/11/2012 3:00p Main Office Kayy Orta P.AKenyatta 20068 788.42 788.43 796.2 616.10 Office Visit 10/01/2012 4:20p Main Office Kayy Orta P.A. 22321 788.42 788.43 278.00 790.21 796.2 Office Visit 08/28/2012 4:00p Main Office Eliceo Savage M.D. 73664 346.10 784.0 787.91 530.11 Office Visit 05/28/2012 4:00p Main Office Eliceo Savage M.D. 32673 784.0 346.10 787.91 Office Visit 02/27/2012 3:45p Main Office Eliceo Savage M.D. 72541 784.0 346.10 787.91 305.1 796.2 Office Visit 12/23/2011 4:00p Main Office Eliceo Savage M.D. 21166 784.0 346.10 787.91 992.8 Office Visit 11/02/2011 3:30p Main Office Eliceo Savage M.D. 55348 V70.0 789.03 787.91 780.52 784.0 346.10 V77.91 700 278.01 780.57 V76.10 V04.81 V07.2 Office Visit 08/06/2010 2:30p Main Office Eliceo Savage M.D. 49180 729.5 726.5 Office Visit 07/20/2010 10:00a Main Office Eliceo Savage M.D. 62515 719.45 724.2 788.30 726.5 Office Visit 07/06/2010 2:30p Main Office Eliceo Savage M.D. 19712 729.5 724.2 719.45 Office Visit 06/25/2010 10:15a Main Office Eliceo Savage M.D. 35324 729.5 724.2 719.45 Office Visit 06/14/2010 4:45p Main Office Eliceo Savage M.D. 02624 729.5 V76.10 454.9 Office Visit 09/14/2009 2:20p Main Office Taylor Quintero 65490 618.02 616.10 Office Visit 07/31/2009 4:15p Main Office Eliceo Savage M.D. 70379 530.81 780.57 V19.8 Office Visit 01/28/2009 11:15a Main Office Eliceo Savage M.D. 06988 530.81 780.79 780.57 788.30 V04.81 Office Visit 11/19/2008 3:00p Main Office Eliceo Savage M.D. 18504 530.81 789.06 625.0 Office Visit 09/29/2008 3:30p Main Office Eliceo Savage M.D. 19722 530.81 789.06 625.0 780.79 346.10 V76.2 V76.10 V72.31 700 Office Visit 07/01/2008 4:15p Main Office Eliceo Savage M.D. 92097 305.1 719.46 780.79 V06.1 v06.1 V07.2 v07.2 Office Visit 01/14/2008 4:30p Main Office Eliceo Savage M.D. 92197 386.11 380.22 Office Visit 10/08/2007 2:30p Main Office Eliceo Savage M.D. 93173 724.2 724.4 Office Visit 09/07/2007 9:30a Main Office Eliceo Savage M.D. 58728 724.2 724.4 682.6 Office Visit 08/14/2007 1:15p Main Office Eliceo Savage M.D. 19294 729.5 454.9 682.6 724.4 724.2 Office Visit 03/13/2007 3:00p [place] [address] 381.00 386.11 Office Visit 02/19/2007 9:45a Main Office klepack 55714 724.2 Office Visit 09/26/2006 4:00p Main Office Eliceo Savage M.D. 85152 300.4 Office Visit 08/14/2006 11:10a Main Office klerockyck 20168 727.04 Office Visit 08/01/2006 3:30p Main Office MalloryrockyTerrie dailycy 90529 278.00 278.00 Office Visit 07/26/2006 4:00p Main Office Eliceo Savage M.D. 72849 300.4 780.79 Office Visit 07/12/2006 2:00p Main Office klepack 90406 727.04 Office Visit 06/20/2006 4:30p Main Office Eliceo Savage M.D. 93968 727.04 727.04 Office Visit 06/06/2006 3:15p Main Office Eliceo Savage M.D. 75425 727.04 Office Visit 05/23/2006 3:15p Main Office Eliceo Savage M.D. 45218 300.4 780.79 Office Visit 04/21/2006 4:15p Main Office Eliceo Savage M.D. 53905 300.4 780.79 Office Visit 03/10/2006 10:15a Main Office Eliceo Savage M.D. 60444 300.4 Office Visit 02/21/2006 10:00a Main Office Eliceo Savage M.D. 16395 788.1 112.1 Office Visit 02/08/2006 1:45p Main Office Eliceo Savage M.D. 04410 787.01 787.91 Office Visit 02/02/2006 8:30a Main Office Eliceo Savage M.D. 58666 300.4 Office Visit 11/15/2005 3:30p Main Office Terrie Larsoncy 69355 272.8 278.00 Office Visit 11/02/2005 3:45p Main Office ramin 14053 564.09 272.8 Office Visit 09/19/2005 3:00p Main Office ramin 62486 564.09 272.8 455.3 Office Visit 08/19/2005 3:15p Main Office ramin 47316 564.09 Office Visit 08/12/2005 5:15p Main Office Vazquez Vasquez M.D. 41049 724.2 789.07 782.1 Office Visit 08/11/2005 3:20p Main Office Selena Cameron, N.P. 63026 789.07 623.9 782.1 Office Visit 08/10/2005 3:25p Main Office Selena Cameron, N.P. 12165 789.07 564.09 Office Visit 06/07/2005 9:40a Main Office Selena Cameron, N.P. 00595 V72.31 787.02 785.2 620.2 785.1 788.63 Office Visit 05/18/2005 8:55a Main Office ramin 40538 493.10 Office Visit 05/05/2005 9:15a Main Office ramin 85171 493.10 462 786.2 Office Visit 05/03/2005 9:20a Main Office Selena Cameron, N.P. 90854 462 788.41 787.91 Office Visit 11/30/2004 3:10p Main Office Vanessamadison Selena, N.P. 70303 625.0 789.03 788.63 Office Visit 06/24/2004 11:00a Main Office Vazquez Vasquez M.D. 79569 454.1 Office Visit 06/22/2004 10:40a Main Office Selena Cameron, N.P. 15661 719.49 626.8 454.1 Office Visit 03/25/2004 4:20p Main Office Selena Cameron, N.P. 39650 786.2 995.3 Office Visit 03/12/2004 10:20a Main Office Selena Cameron, N.P. 43440 786.2 381.01 Office Visit 01/09/2004 1:45p Main Office Vazquez Vasquez M.D. 76479 530.81 346.10 309.1 305.1 Office Visit 2003 2:15p Main Office Vazquez Vasquez M.D. 89527 530.81 346.10 309.1 305.1 844.9 Office Visit 2003 10:00a Main Office Vazquez Vasquez M.D. 27732 530.81 346.10 309.1 305.1 844.9 Office Visit 06/13/2003 10:00a Main Office Vazquez Vasquez M.D. 18947 530.81 346.10 309.1 Office Visit 03/07/2003 10:15a Main Office Vazquez Vasquez M.D. 96049 309.1 346.10 530.81 Office Visit 01/01/2003 2:45p Main Office Vazquez Vasquez M.D. 25308 309.1 346.10 Office Visit 11/15/2002 4:00p Main Office Vazquez Vasquez M.D. 76014 300.4 309.1 308.9 530.81 Office Visit 10/10/2002 4:30p Main Office Vazquez Vasquez M.D. 06098 789.07 309.1 Office Visit 10/02/2002 2:20p Main Office Selena Cameron, N.P. 01248 789.07 623.5 308.9 Office Visit 09/17/2002 2:00p Main Office Selena Cameron, N.P. 92856 626.4 V72.4 616.0 789.03 Plan of Care Future Appointment(s):02/06/2017 2:00 pm - Eliceo Savage M.D. at Main Office
--- NOTE | 2017-01-21 14:56 | UC ---
Lower Extremity/Ankle HPI - HPI Summary HPI Summary: 51 y/o female presents to the urgent care c/o rt leg pain since yesterday. Pt reports pain is in the upper thigh and calf, 8/10 specially with touch and ambulation. Pt reports she has Hx of thrombophlebitis. she has an recent Venous Doppler done on 01/03/2017 Dx with a superficial thrombus varicose vein. Now her calf is red, painful and swollen. She has an appt with vascular DR on 2016. She had a Hip replacement Sx on 06/28/2016. She is not in blood thinners, Pt denies SOB, chest pain, N/V/D, abdominal pain. She is not OCP and doesn't smoke. - History of Current Complaint Chief Complaint: UCLowerExtremity Stated Complaint: RIGHT LEG COMPLAINT Time Seen by Provider: 01/21/17 14:54 Hx Obtained From: Patient Hx Last Menstrual Period: menopausal ?: No Onset/Duration: Gradual Onset, Lasting Weeks - 2 weeks, Worse Since - yesterday Severity Initially: Mild Severity Currently: Moderate Pain Intensity: 8 Pain Scale Used: 0-10 Numeric Aggravating Factor(s): Ambulation, Other - touch Alleviating Factor(s): Rest, OTC Meds Able to Bear Weight: Yes - Allergies/Home Medications Allergies/Adverse Reactions: Allergies Allergy/AdvReac Type Severity Reaction Status Date / Time Aspirin Allergy Unknown Verified 01/21/17 13:51 Reaction Details ANY TREE NUTS Allergy ANAPHYLACTI Uncoded 01/21/17 13:51 C SEASONAL Allergy Congestion Uncoded 01/21/17 13:51 Home Medications: Home Medications Oxybutynin Chloride [Ditropan Xl] 1 tab PO DAILY 01/21/17 [History Confirmed 04/08] celeCOXIB CAP* [CeleBREX CAP*] 200 mg PO DAILY 01/21/17 [History Confirmed 01/21] PMH/Surg Hx/FS Hx/Imm Hx Previously Healthy: Yes Other Cardiovascular History: superficial thrombophlebitis Respiratory History: Asthma GI/ History: Gastroesophageal Reflux Neurological History: Migraine - Surgical History Surgical History: Yes Surgery Procedure, Year, and Place: sleeve Gastrectomy 11/2012, varicose vein ligation, Partial Hysterectomy, carpal tunnel right, decor vein right thumb. - Family History Known Family History: Positive: Cardiac Disease, Hypertension, Diabetes - Social History Occupation: Unemployed Lives: With Family Alcohol Use: Rare Substance Use Type: None Smoking Status (MU): Never Smoked Tobacco Amount Used/How Often: 2 PPD FOR ABOUT 25 YRS When Did the Patient Quit Smoking/Using Tobacco: 2 YRS AGO - Immunization History Most Recent Influenza Vaccination: 2017 Most Recent Tetanus Shot: UNKNOWN Most Recent Pneumonia Vaccination: NA Review of Systems Constitutional: Negative Skin: Negative Eyes: Negative ENT: Negative Respiratory: Negative Cardiovascular: Negative Gastrointestinal: Negative Genitourinary: Negative Motor: Negative Neurovascular: Negative Musculoskeletal: Other: - RT upper thight pain and RT calf pain Neurological: Negative Psychological: Negative Is Patient Immunocompromised?: No All Other Systems Reviewed And Are Negative: Yes Physical Exam Triage Information Reviewed: Yes Appearance: Well-Appearing, No Pain Distress, Well-Nourished, Obese Vital Signs: Initial Vital Signs Temp 98.1 F 01/21/17 13:44 Pulse 99 01/21/17 13:44 Resp 16 01/21/17 13:44 BP 183/93 01/21/17 13:44 Pulse Ox 98 01/21/17 13:44 Vital Signs Reviewed: Yes Eyes: Positive: Conjunctiva Clear - PERRLA< ZHANG, fundi grossly WNL ENT: Positive: Normal ENT inspection, Hearing grossly normal, Pharynx normal, TMs normal, Uvula midline Neck: Positive: Supple, Nontender, No Lymphadenopathy Respiratory: Positive: Chest non-tender, Lungs clear, Normal breath sounds, No respiratory distress Cardiovascular: Positive: RRR, No Murmur, Pulses Normal, Brisk Capillary Refill Abdomen Description: Positive: Nontender, No Organomegaly, Soft. Negative: CVA Tenderness (R), CVA Tenderness (L) Bowel Sounds: Positive: Present Musculoskeletal: Positive: Strength Intact, ROM Intact, Other: - Extremities: Positive: Strength Intact, ROM Intact, Other: - Extremities: R extremity without deformity or asymmetry when compared to the L. Positive RT calf with tender to palpation, edema and erythema on medial aspect when compared with the LF calf. Pitting edema. Some superficial veins cords palpated. RT proximal medial side upper thigh with a palpable thrombosed varicose vein, purplish in color and tender to palpation. No lesions or break in skin integrity. Positive Homans sign. Decreased ROM of RT knee and hip due to pain. Neurological Exam: Normal Psychological Exam: Normal Skin Exam: Normal Lower Extremity Course/Dx - Course Course Of Treatment: 51 y/o female presents to the urgent care c/o rt leg pain since yesterday. Pt reports pain is in the upper thigh and calf, 8/10 specially with touch and ambulation. Pt reports she has Hx of thrombophlebitis. she has an recent Venous Doppler done on 01/03/2017 Dx with a superficial thrombus varicose vein. Now her calf is red, painful and swollen. She has an appt with vascular DR on 01/26/2017. She had a Hip replacement Sx on 06/28/2016. She is not in blood thinners, Pt denies SOB, chest pain, N/V/D, abdominal pain. She is not OCP and doesn't smoke.Hx obtained. Pt with Superficial several thrombosed varicose veins on medial aspect of RT medial thigh and RT calf tender to palpation, Positive Kellen's sign of Rt calf on examination. Pt hemodynamically stable, At this moment there is not Venous Doppler US to r/o DVT. Pt's symptoms discussed with Dr Quiñones. Pt strongly advised to go to the ER for further Images to r/o DVT. I spoke with DR Prabhakar at [facility] in regards to Pt 's symptoms. He accepted PT. Pt stated she will go the ER by car. Pt left the clinic A&OX3, ambulating and hemodynamically stable. - Differential Dx/Diagnosis Differential Diagnosis/HQI/PQRI: Cellulitis, Contusion, DVT, Phlebitis Provider Diagnoses: 1- Rt calf pain. 2-Superficial thrombophlebitis - Physician Notifications Discussed Patient Care With: Camilla Quiñones - Dr Ishmael dong with Pt's plan of care Discharge - Discharge Plan Condition: Stable Disposition: OTHER Discharge Disposition Comment: Pt strongly adviseed to go to the ER immediately r/o DVT Patient Education Materials: Superficial Thrombophlebitis (ED), Deep Venous Thrombosis (ED), Leg Edema (ED) Referrals: Eliceo Savage MD [Primary Care Provider] - Additional Instructions: I strongly recommend you to immediately go to the ER for further images and evaluation to r/o DVT. risks of not going is or pulmonary embolism .
== END 2017-01-21 15:24 ==
LOC: UCEAST 13:41
DX: I80.01 Phlebitis and thrombophlebitis of superficial vessels of right lower extremity (principal); Z86.72 Personal history of thrombophlebitis; Z87.891 Personal history of nicotine dependence
CPT/HCPCS: 99212; G0463

== ENCOUNTER 2017-01-21 15:47 | Emergency (ER) | payer OTHER ==
[2017-01-21] MEDS ORDERED: oxyCODONE/Acetamin 5/325 MG* TAB PO ONE ×2 (16:21→18:04)
--- NOTE | 2017-01-21 17:32 | RAD ---
HISTORY: Lower extremity pain and swelling TECHNIQUE: Multiple transverse and longitudinal ultrasound images were obtained of the veins of the right lower extremity using grayscale, color Doppler, and spectral Doppler imaging with and without compression and with augmentation. FINDINGS: VEINS: The common femoral vein, deep femoral vein, femoral vein and popliteal vein are compressible throughout their course, with normal flow on color Doppler imaging and normal response to augmentation on spectral Doppler imaging. At the right thigh and calf there are superficial varicose veins with no flow indicating thrombosis and/or prior ablation. SOFT TISSUES: Grossly normal. No large popliteal fossa cyst was identified. IMPRESSION: No sonographic evidence of deep vein thrombosis. Thrombosed superficial varicose veins are noted.
--- NOTE | 2017-01-21 18:10 | ED ---
Karyna Mancia Emily, scribed for Vazquez Haney MD on 01/21/17 at 1638 . Lower Extremity - HPI Summary HPI Summary: This patient is a 51 year old F referred to [facility] by urgent care with a chief complaint of R calf and upper thigh pain that began yesterday. The patient rates the pain 8/10 in severity. Symptoms aggravated by touch and ambulation. Symptoms alleviated by nothing. Patient reports redness and swelling on R calf. Patient denies SOB, CP, nausea, vomiting, diarrhea, and abd pain. Pt has a hx of thrombophlebitis, and was diagnosed with a superficial thrombus vein on 01/03. Pt had a L hip replacement surgery on 06/28/2016. - History of Current Complaint Chief Complaint: EDExtremityLower Stated Complaint: RT LEG SWELLING-SENT FROM [facility] Time Seen by Provider: 01/21/17 16:15 Hx Obtained From: Patient Hx Last Menstrual Period: menopausal Onset of Pain: Days Onset/Duration: Still Present Severity Initially: Severe Severity Currently: Severe Pain Intensity: 8 Pain Scale Used: 0-10 Numeric Timing: Constant, Lasting Days Location: Is Discrete @ - R calf and upper thigh Associated Signs And Symptoms: Positive: Other - Positive redness and swelling on R calf. Negative SOB, CP, nausea, vomiting, diarrhea, and abd pain Aggravating Factor(s): Ambulation, Other - Touch Alleviating Factor(s): Nothing - Allergies/Home Medications Allergies/Adverse Reactions: Allergies Allergy/AdvReac Type Severity Reaction Status Date / Time Aspirin Allergy Unknown Verified 01/21/17 13:51 Reaction Details ANY TREE NUTS Allergy ANAPHYLACTI Uncoded 01/21/17 13:51 C SEASONAL Allergy Congestion Uncoded 01/21/17 13:51 PMH/Surg Hx/FS Hx/Imm Hx Previously Healthy: No Endocrine/Hematology History: Denies: Hx Diabetes Cardiovascular History: Reports: Other Cardiovascular Problems/Disorders - Thrombophlebitis. Superficial thrombus vein Denies: Hx Hypertension Respiratory History: Reports: Hx Asthma - A CHILD - NO PROBLEMS NOW, Hx Sleep Apnea, Other Respiratory Problems/Disorders - hx sleep apnea GI History: Reports: Hx Gastroesophageal Reflux Disease - controlled with medication Denies: Hx Cirrhosis Musculoskeletal History: Reports: Hx Arthritis - BILATERAL HIPS GREATER IN LEFT HIP Sensory History: Reports: Hx Contacts or Glasses - CONTACTS - WILL WEAR GLASSES DAY OF SURGERY Denies: Hx Hearing Aid Opthamlomology History: Reports: Hx Contacts or Glasses - CONTACTS - WILL WEAR GLASSES DAY OF SURGERY Neurological History: Reports: Hx Migraine - ON MEDS - Cancer History Hx Chemotherapy: No Hx Radiation Therapy: No - Surgical History Surgery Procedure, Year, and Place: sleeve Gastrectomy 11/2012, varicose vein ligation, Partial Hysterectomy, carpal tunnel right, decor vein right thumb. Hx Anesthesia Reactions: Yes - SLOW TO WAKE UP Infectious Disease History: No Infectious Disease History: Denies: Hx Hepatitis, History Other Infectious Disease, Traveled Outside the [place] in Last 30 Days - Family History Known Family History: Positive: Cardiac Disease, Diabetes - Social History Occupation: Employed Full-time Lives: With Family Alcohol Use: Rare Substance Use Type: Reports: None Smoking Status (MU): Never Smoked Tobacco Amount Used/How Often: 2 PPD FOR ABOUT 25 YRS Review of Systems Negative: Chest Pain Negative: Shortness Of Breath Negative: Abdominal Pain, Vomiting, Diarrhea, Nausea Positive: Edema - R calf, Other - Positive R calf and upper thigh pain Positive: Other - Positive redness on R calf All Other Systems Reviewed And Are Negative: Yes Physical Exam Triage Information Reviewed: Yes Vital Signs On Initial Exam: Initial Vitals Temp Pulse Resp BP Pulse Ox 97.8 F 78 16 175/99 99 01/21/17 15:50 01/21/17 15:50 01/21/17 15:50 01/21/17 15:50 01/21/17 15:50 Vital Signs Reviewed: Yes Appearance: Positive: Well-Appearing, No Pain Distress Skin: Positive: Other - Erythema on back of R calf that is tender to palpation. Ecchymosis on upper inner thigh along inner distribution the femoral artery that is mildly tender to palpation Head/Face: Positive: Normal Head/Face Inspection Eyes: Positive: EOMI, WILLIAM ENT: Positive: Normal ENT inspection Neck: Positive: Supple, Nontender Respiratory/Lung Sounds: Positive: Clear to Auscultation, Breath Sounds Present Cardiovascular: Positive: RRR Abdomen Description: Positive: Nontender, Soft Bowel Sounds: Positive: Present Musculoskeletal: Positive: Normal, Strength/ROM Intact Neurological: Positive: Normal, Sensory/Motor Intact, Alert, Oriented to Person Place, Time Psychiatric: Positive: Affect/Mood Appropriate Diagnostics - Vital Signs Vital Signs Temp Pulse Resp BP Pulse Ox 01/21/17 15:50 97.8 F 78 16 175/99 99 - Laboratory Lab Statement: Any lab studies that have been ordered have been reviewed, and results considered in the medical decision making process. - Additional Comments Diagnostic Additional Comments: Venous doppler study reveals, per radiologist, no sonographic evidence of deep vein thrombosis. Thrombosed superficial varicose veins are noted. ED physician has reviewed this radiology report and agrees. Re-Evaluation - Re-Evaluation First Eval Re-Evaluation Time: 18:00 Change: Improved Comment: Discussed plan of care with pt. Lower Extremity Course/Dx - Course Course Of Treatment: DISCUSSED RESULTS WITH THE PATIENT. HAS AN APPOINTMENT WITH VASCULAR THIS WEEK. RETURN IF WORSE. - Diagnoses Provider Diagnoses: Superficial thrombophlebitis of right leg Discharge - Discharge Plan Condition: Stable Disposition: HOME Prescriptions: oxyCODONE/Acetamin 5/325 MG* [Percocet 5/325 TAB*] 1 tab PO Q4H PRN #20 tab MDD 6 PRN Reason: Pain oxyCODONE/Acetamin 5/325 MG* [Percocet 5/325 TAB*] 1 tab PO Q4H PRN #20 tab MDD 6 PRN Reason: Pain Patient Education Materials: Superficial Thrombophlebitis (ED) Referrals: Eliceo Savage MD [Primary Care Provider] - Additional Instructions: FOLLOW UP WITH THE VASCULAR SURGEON SCHEDULED THIS WEEK AND WITH YOUR PRIMARY CARE DOCTOR. RETURN TO THE EMERGENCY DEPARTMENT FOR ANY WORSENING OF YOUR CONDITION; PAIN, SHORTNESS OF BREATH, YOU FEEL ILL OR QUESTIONS OR CONCERNS. The documentation as recorded by the Karyna cherry Emily accurately reflects the service I personally performed and the decisions made by me, Vazquez Haney MD.
[2017-01-21 18:25] VITALS: BP 165/77
== END 2017-01-21 18:33 | disposition home or self-care (01) ==
LOC: ED 15:47
DX: I80.9 Phlebitis and thrombophlebitis of unspecified site (principal); R60.0 Localized edema; M79.651 Pain in right thigh
CPT/HCPCS: 99282; A9270-GY

== ENCOUNTER 2017-02-21 05:56 | Inpatient (IN) | payer OTHER ==
--- NOTE | 2017-02-08 20:46 | HP ---
PREOPERATIVE HISTORY AND PHYSICAL: DATE OF ADMISSION: 02/21/17 PROVIDER: Kale England MD * (DICTATED BY CHETNA VANN) CHIEF COMPLAINT: Right hip pain. HISTORY OF PRESENT ILLNESS: Danielle is a 51-year-old female who has been followed by Dr. England for ongoing pain of the right hip. She was found to have severe end- stage osteoarthritis. She has failed conservative treatment and has elected to proceed with right total hip arthroplasty. PAST MEDICAL HISTORY: Migraine headaches, GERD, and superficial phlebitis of the right leg. PAST SURGICAL HISTORY: Bilateral leg vein stripping in 2002, left leg vein stripping in 2004, hysterectomy in 2008, carpal tunnel release and de Quervain' s in 2008, sleeve gastrectomy in 2012, carpal tunnel release in 2015, left total hip replacement in 2017. She reports no complications with the anesthesia with both procedures. CURRENT MEDICATIONS: 1. Celebrex 200 mg one tablet p.o. b.i.d. 2. Omeprazole 40 mg one tablet p.o. every day. 3. Depakote 500 mg one tablet p.o. b.i.d. 4. Citracal plus vitamin D 200/250 mg/units one tablet per day. 5. Women's One vitamin daily one p.o. every day. 6. Vitamin B12 2500 mcg every day. 7. Vitamin D 2000 units every day. 8. Iron 325 mg every day. 9. Oxybutynin 5 mg every day. 10. Percocet 5/325 mg 1 to 2 tablets every day. 11. Lovenox 60 mg injection subcutaneously daily. ALLERGIES: No known drug allergies. FAMILY HISTORY: Noncontributory. SOCIAL HISTORY: The patient lives with her . 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 She is a former cigarette smoker and quit in 2011. She rarely consumes alcohol. She does not exercise regularly. REVIEW OF SYSTEMS: Constitutional: Negative for recent hospitalizations, fevers, chills, night sweats, or unexplained weight loss. Head: Negative for headaches, lightheadedness, or balance problems. Cardiovascular: Negative for chest or arm pain with exertion, history of heart attack, heart murmur, heart palpitations, high blood pressure, embolism, or deep vein thrombosis. She does have a superficial phlebitis. Respiratory: Negative for chronic cough, shortness of breath with exertion, asthma or COPD. Gastrointestinal: Positive for heartburn. Negative for nausea, vomiting, diarrhea, constipation. Positive for GERD. Genitourinary: Negative for nighttime urination. Positive for frequent urination. Negative for urinary tract infection or kidney problems. Musculoskeletal: Negative for chronic back pain. Negative for recent fractures. Skin: Negative for rashes, lesions, lumps, or sores. Neurologic: Negative for seizure, stroke, epilepsy, depression, or anxiety. Endocrine: Negative for diabetes or thyroid problems. Hematology: Positive for easy bleeding on the Lovenox. Negative for anemia. PHYSICAL EXAMINATION GENERAL: She is a well-developed, well-nourished, heavy set female in no acute distress at rest. She is alert and oriented x3 with appropriate mood and affect. VITAL SIGNS: The patient is 5 feet 10 inches, 313 pounds, blood pressure 152/96 , temperature 98.4, pulse of 90. HEENT: Normocephalic, atraumatic. Hearing and vision are grossly intact. NECK: Her trachea is midline. RESPIRATORY: Lungs are clear to auscultation bilaterally. No wheezes, rales, or rhonchi. CARDIOVASCULAR: Regular rate and rhythm. No murmurs, rubs, or gallops. Normal S1, S2. ABDOMEN: Soft, nondistended, nontender. Normal bowel sounds. EXTREMITIES: Exam of the right hip, skin is intact without abrasions or open wounds. She does have reddish discoloration with associated induration and mild warmth over the proximal anterior medial thigh and anterior lateral thigh above the knee. She does report that this has improved since starting on the Lovenox and it is much less tender. She has hip flexion to 50 or 60 degrees, abduction to 30 or 40 degrees. She has very limited internal and external rotation. Her sensation to light touch is intact. She has a 2+ dorsalis pedis pulse. IMPRESSION: Right hip osteoarthritis. PLAN: The patient is to undergo right total hip arthroplasty by Dr. England on . The risks, benefits, and postoperative course were discussed with the patient at length and she would like to proceed. We are awaiting final clearance from Dr. Cuellar, which she will see prior to surgery with regards to the superficial phlebitis. All of her questions were answered to her full satisfaction. We will follow up with the patient in the postoperative phase. CHETNA VANN [id number]/[facility] #: [id number] [facility] STATE HOSPITALDilia
[~2017-02-21 05:56] MED LIST changes: +Buffered Lidocaine 0.9% SYRIN* 5 ML/SYR SYRINGE INTRADERM ONE; -Buffered Lidocaine 1% SYR 3ML* 3 ML/SYR SYRINGE INTRADERM ONE; -Dexamethasone IV* 4 MG/ML 1 ML (4 MG) IV SLOW PU ONE; -Dexamethasone IV* 4 MG/ML 1 ML (4 MG) ONE; -ceFAZolin 1 GM in Dextrose (*) 1 GM/50 ML BAG IVPB ONE; -ceFAZolin 2 GM PREMIX(*) 2 GM/50 ML BAG IVPB ONE
[2017-02-21] MEDS ORDERED: Buffered Lidocaine 0.9% SYRIN* 5 ML/SYR SYRINGE ONE (06:16)
[2017-02-21] MEDS ORDERED: ceFAZolin 2 GM PREMIX (*) 2 GM/50 ML BAG IVPB ONE (06:16)
[2017-02-21] MEDS ORDERED: ceFAZolin 1 GM in Dextrose (*) 1 GM/50 ML BAG IVPB ONE (07:24)
[2017-02-21] MEDS ORDERED: Morphine PF AMP (0.5MG/ML)* 5 MG/10 ML AMP ONE (07:55)
[2017-02-21] MEDS ORDERED: Midazolam* 1 MG/ML 2 ML VIAL (2 MG) ONE ×2 (07:55→11:02)
[2017-02-21] MEDS ORDERED: fentaNYL* 50 MCG/ML 2 ML VIAL (100 MCG VIAL) ONE ×2 (07:55→11:02)
[2017-02-21] MEDS ORDERED: Propofol* 10 MG/ML 20 ML BTL IV PUSH ONE ×2 (08:23→11:22)
[2017-02-21] MEDS ORDERED: diPHENhydraMINE IV* 50 MG/ML 1 ml VIAL (BENADRYL) IV PRN (08:49)
[2017-02-21] MEDS ORDERED: PROCHLORPERAZINE INJ 5 MG/ML 2 ML VIAL IV PRN (08:49)
[2017-02-21] MEDS ORDERED: Naloxone* 0.4 MG/ML 1 ML VIAL IV PRN (08:49)
[2017-02-21] MEDS ORDERED: Metoclopramide IV* 5 MG/ML 2 ML VIAL IV PRN ×2 (08:49)
[2017-02-21] MEDS ORDERED: Ondansetron INJ* 2 MG/ML VIAL IV PRN (08:49)
[2017-02-21] MEDS ORDERED: DiMENhydriNATE IV* 50 MG/ML VIAL IV PUSH PRN (08:49)
[2017-02-21] MEDS ORDERED: Nalbuphine* 20 MG/ML 1 ML VIAL IV PRN (08:49)
[2017-02-21] MEDS ORDERED: HYDROmorphone INJ* 1 MG/ML CARPUJECT SYRINGE IV PRN (08:49)
[2017-02-21] MEDS ORDERED: Bupivacaine 0.25% SDV* 30 ML ONE (11:21)
[2017-02-21] MEDS ORDERED: Magnesium Hydroxide LIQ* 30 ML UDC PO PRN (11:45)
--- NOTE | 2017-02-21 13:13 | RAD ---
INDICATION: Status post total right hip replacement surgery. COMPARISON: Comparison is made with a prior x-ray study of the hips from August 31, 2016. TECHNIQUE: An AP view of the pelvis and frontal and lateral views of the right hip were obtained. FINDINGS: The patient is status post total right hip replacement surgery. The bones and prostheses are in normal alignment. There are several surgical jefferson present laterally. There are surgical clips which project over the right inguinal region. The patient is status post removal total left hip replacement surgery. IMPRESSION: STATUS POST TOTAL RIGHT HIP REPLACEMENT SURGERY.
--- NOTE | 2017-02-21 13:27 | OP ---
DATE OF OPERATION: 02/21/17 - ROOM #341 DATE OF : 69 SURGICAL CARE: Right hip. SURGEON: Kale England MD ASSISTANTS: 1. CHETNA Murray. 2. windshield technician, Suha Corley. ANESTHESIOLOGIST: Alana Patel MD ANESTHESIA: Spinal with Duramorph. PRE-OP DIAGNOSIS: Severe arthritis of the right hip. POST-OP DIAGNOSIS: Severe arthritis of the right hip. OPERATIVE PROCEDURE: Right total hip replacement. INDICATIONS: Severe arthritis of the right hip. We noted this morning preoperatively as we discussed her medical conditions and the surgery that straight leg raising on her left total hip side is done quickly and without pain and straight leg raising on her right hip, right lower extremity, this morning was done with discomfort in the groin region and pain and slowly. COMPONENTS UTILIZED: Jayashree Continuum cup 50-mm outer diameter with 1 screw. There is an elevated liner. The elevation is located posteriorly for 32 head. On the femoral side, the M/L Taper size 7.5 reduced neck with a +0 32-mm ceramic head. COMPLICATIONS: There were no complications. DRAINS: There were no drains. ESTIMATED BLOOD LOSS: 400 mL. REPLACEMENT: Crystalloid fluids. DESCRIPTION OF PROCEDURE: The patient was brought to the operating room and placed on the operating room in the supine position, then into a seated position for administration of spinal anesthetic and Duramorph. She was returned to the supine position and a Kramer catheter was inserted. She was carefully placed in the left lateral position. The down-side left leg was padded, so there was no pressure on the peroneal nerve with the fibular head and neck. Blankets were placed between the legs. The pelvis was secured over the ASIS in the sacrum and folded blankets were placed under the left greater trochanter to elevate the right hip towards the some for this case. After securing the pelvis, then the groin was sealed off. The right hip was given a preliminary chlorhexidine prep and then a final ChloraPrep. After prepping and draping and sealing off, we did our universal protocol time-out confirming Danielle Brody and the plan for a right total hip replacement. We all agreed and we proceeded. The right hip was approached with the curving posterolateral skin incision going from the greater trochanter distally for 2.5 to 3 inches and curving proximally and posteriorly for 3.5 to 4 inches. The skin and subcu divided down to the deep fascia. The careful hemostasis was checked and achieved throughout the case utilizing electrocautery. The deep fascia was opened over the greater trochanter or just towards posterior aspect of the greater trochanter. A deep Charnley retractor was inserted and then a careful posterior approach to the hip was done preserving the gluteus medius and as we made our exposure also preserving the gluteus minimus and retracting both anteriorly with the blunt Hohmann retractor. The piriformis and conjoint tendon were released from the piriformis fossa insertions, each was marked with a separate #2 Surgidac suture and this stitch also included the posterior capsular flap. The hip had clear synovial fluid. There was complete eburnation of the femoral head in the weightbearing area with some loss of round of the femoral head as well. On the acetabular side, there was a large medial osteophyte. The hip was dislocated without difficulty. Careful hemostasis as we approached the hip posteriorly was completed. The hip was dislocated and the femoral neck was cut about a fingerbreadth proximal to the lesser trochanter after measurement with the M/L Taper neck cutting guide. The retraction for the acetabulum was sharp Hohmann anteriorly and posteriorly. Blunt Hohmann superiorly and inferiorly. The remains of the labrum were removed posterior, superiorly, and anteriorly. The superior half of the transverse acetabular ligament was excised and the medial osteophyte was excised with osteotome as well as some posterior osteophyte. Reaming was then done 44 through 50, and at 50, we had nice bleeding subchondral and cancellous bone. The acetabulum was cleaned several times with saline. A 50 Continuum cup was impacted into position in 45 degrees of abduction and 20 degrees of anteversion with a nice tight fit of screw was placed superiorly and then the posterior liner elevation was placed posteriorly. Attention was turned to the femoral side. On the femoral side, we used the canal finder and the trochanteric reamer. Broaching was done 4 through 7.5. At 7.5, we got a nice tight fit. Trial reduction was done with a 7.5 and the reduced neck and the +0 32 head with satisfactory fit, satisfactory tissue tensioning, and no tendency towards dislocation and extension with rotations. Flexion of 90 degrees plus allowed IR and adduction of 30 to 40 degrees prior to dislocation. The femoral canal was cleaned. The 7.5 standard M/L taper with reduced neck was impacted in its position in approximately 15 to 20 degrees of anteversion and the trunnion was clean and +0 32-mm ceramic head was impacted on to the trunnion. The hip was reduced without difficulty. During closure, we irrigated several times with saline irrigation solution. We swabbed the soft tissues, loose pieces of adipose were removed. The piriformis and the conjoint tendon were reapproximated to the posterosuperior trochanter through 2 drill holes utilizing the #2 Surgidac sutures. The fascia samuel was closed with interrupted absorbable and nonabsorbable figure-of-8 sutures #1. The deep and superficial subcu were then closed with interrupted #1 and 0 absorbable sutures. The superficial subcu closed with 2-0 Vicryl and the skin closed with jefferson. The hip was infiltrated with 30 mL of Marcaine 0.25% without epinephrine at the end of the case, 20 mL went deep and another 20 anterior and posterior to the incision. The surgery was well tolerated. The was then washed and dried and covered with Betadine-soaked release followed by sterile gauze, ABD pads, and then paper tapes. The patient was returned to the supine position into the hospital bed. The right and left ankles had active dorsiflexion and plantar flexion at the end of the case, and the patient was returned to recovery room in stable and satisfactory condition having tolerated the procedure very well. [id number]/[facility] #: [id number] [facility]
[2017-02-21] MEDS ORDERED: oxyCODONE/Acetamin 5/325 MG* TAB ONE (14:59)
[2017-02-21] MEDS: oxyCODONE/Acetamin 5/325 MG* TAB PO PRN ×3 (15:03→23:58)
[2017-02-21] MEDS ORDERED: ceFAZolin 1 GM VIAL(*) 1 GM in NS 0.9% 50 ML* 50 ML IVPB SCH (16:00)
[2017-02-21] MEDS ORDERED: ceFAZolin 1 GM VIAL(*) 1 GM in D5W 50 ML BAG* 50 ML IVPB SCH (16:30)
[2017-02-21] MEDS: ceFAZolin 1 GM VIAL(*) 1 GM in D5W 50 ML BAG* 50 ML IVPB SCH (16:50)
[2017-02-21] MEDS: Cyanocobalamin TAB* 500 MCG PO SCH (17:57)
[2017-02-21] MEDS: Oxybutynin XL TAB* 5 MG PO SCH (17:58)
[2017-02-21] MEDS: Divalproex ER TAB(*) 500 MG PO SCH (17:58)
[2017-02-21] MEDS: Docusate CAP* 100 MG PO SCH (19:17)
--- NOTE | 2017-02-21 21:05 | CONS ---
CC: Dr. England; Dr. Eliceo Savage * CONSULTATION REPORT: DATE OF CONSULT: 02/21/17 PRIMARY CARE PROVIDER: Dr. Eliceo Savage. ATTENDING PHYSICIAN: Dr. Karla López (dictated by Mirna Myles NP). REASON FOR CONSULTATION: Co-medical management in a patient with a history of obstructive sleep apnea, obesity, and recent superficial right leg phlebitis. HISTORY OF PRESENT ILLNESS: Ms. Brody is a 51-year-old female with past medical history significant for obstructive sleep apnea, uses CPAP, overactive bladder, GERD, asthma, obesity, migraines, and recent superficial phlebitis of her right leg, who presented to the hospital today for an elective right total hip arthroplasty with Dr. England. The patient states that leading up to her surgery, she has been in her usual state of health. She denies any fever, chills, chest pain, shortness of breath, although she does report some nausea and dizziness this morning. She feels this was related to anxiety. The patient has recently been treated for superficial right thigh phlebitis by Dr. Cuellar. The patient states that her pain is controlled postoperatively and the hospitalists were asked to assist with co-medical management of this patient during her hospitalization. PAST MEDICAL HISTORY: 1. Obstructive sleep apnea, uses CPAP. 2. Overactive bladder. 3. GERD. 4. Asthma. 5. Obesity with BMI of 44. 6. Recent superficial right thigh and leg phlebitis. 7. Migraine headaches. PAST SURGICAL HISTORY: 1. Status post bilateral vein stripping in 2002. 2. Status post left leg vein stripping in 2004. 3. Status post hysterectomy in 2008. 4. Status post carpal tunnel release and de Quervain's release in 2008. 5. Status post sleeve gastrectomy in 2012. 6. Status post carpal tunnel release in 2015. 7. Status post left total hip arthroplasty in 2016. 8. Status post bladder sling. HOME MEDICATIONS: Include: 1. Celebrex 200 mg oral twice daily. 2. Oxybutynin 10 mg oral every evening. 3. Omeprazole 40 mg oral twice daily. 4. Multivitamin two tablets oral daily. 5. Iron 65 mg oral every evening. 6. Ibuprofen 800 mg oral 3 times daily as needed for pain. 7. Glucosamine chondroitin 3 tablets oral every morning. 8. Lovenox 40 mg subcutaneous every evening, the patient's last dose was on . 9. Depakote ER 1500 mg oral every evening. 10. Vitamin B12 1000 mcg oral every evening. 11. Calcium citrate plus D3 one tablet oral every evening. ALLERGIES: ASPIRIN and TREE NUTS. FAMILY HISTORY: The patient's father has a history of heart disease. She has a brother with history of cerebral aneurysm. SOCIAL HISTORY: The patient is a former smoker, quitting in 2011. Rarely drinks alcohol. 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 Her , Daniel Brody will be her surrogate decision maker in the events she is unable to make decisions for herself. REVIEW OF SYSTEMS: I performed a 14-point review of systems. All the pertinent positives and negatives are mentioned in the history of present illness. The remaining review of systems are negative. PHYSICAL EXAMINATION: Vital Signs: Temperature 98.3, heart rate 86, respiratory rate 16, O2 sat 97% on room air, blood pressure 127/59. General Appearance: The patient is alert, pleasant, appears to be in no acute distress. HEENT: Normocephalic, atraumatic. Cardiovascular: Regular rate and rhythm. S1 and S2 crisp. There are no murmurs, rubs, or gallops heard. Extremities: Show no lower extremity edema. DP and PT pulses are 2+ and symmetric. Respiratory: There is no accessory muscle use and lungs are clear to auscultation bilateral. Abdomen: Soft, nontender, nondistended. There are bowel sounds present x4. Musculoskeletal: There is no clubbing or cyanosis noted. The patient exhibits good strength in all extremities. Skin: There are no rashes or abnormalities seen. The patient has a dressing to her right hip that is clean, dry, and intact. Neurological: Cranial nerves II through XII are grossly intact. The patient moves all extremities. Psychological: The patient is calm and cooperative. DIAGNOSTIC STUDIES/LAB DATA: Preoperative labs from 02/08/17, urinalysis negative. Sodium 138, potassium 4.1, chloride 103, CO2 28, BUN 11, creatinine 0.58, glucose 83. White blood cell count is 6.8, hemoglobin 13.1, hematocrit 39 , platelet count 284. IMPRESSION: Ms. Brody is a 51-year-old female with a past medical history significant for migraine headaches, gastroesophageal reflux disease, recent superficial phlebitis of the right leg, obesity, sleep apnea and asthma, who presents today for an elective right total hip arthroplasty with Dr. England and the hospitalists have been asked to assist with co-medical management of this patient during her hospitalization. ASSESSMENT/PLAN: 1. Status post right total hip arthroplasty. Management per Orthopedic Surgery. She will have her H and Hs trended. She will have physical therapy and occupational therapy. She will be placed on pain medication and bowel regimens. 2. Obstructive sleep apnea. The patient will be continued on her home CPAP. 3. Obesity. The patient's BMI is 44. 4. Overactive bladder. The patient will be continued on her home oxybutynin. 5. Gastroesophageal reflux disease. The patient will be continued on her home omeprazole. 6. Migraine headaches. The patient will be continued on her home Depakote. 7. History of recent superficial phlebitis. The patient will be resumed on Lovenox or DVT prophylaxis per Orthopedic Surgery. At this time, she will resume on Lovenox in the morning. 8. Fluids, electrolytes, and nutrition. The patient will be on a regular diet. 9. Code status. Full code. 10. DVT prophylaxis. The patient will be placed on subcu Lovenox starting tomorrow per Orthopedic Surgery and SCDs. 11. Disposition. Inpatient with disposition per Orthopedic Surgery. TIME SPENT: Time for this consultation was approximately was 60 minutes, greater than half of that was spent with the patient and discussing medications, past medical history, the events leading up to her arrival today, and performing a physical examination. The case has been reviewed with the attending, Dr. López, who agrees with the plan of care. Thank you for this consultation. At this time, we will sign off on the patient. Please call with any concerns and will follow as needed. MIRNA MYLES, EMETERIO [id number]/[facility] #: [id number] WILLIAM
[2017-02-22] MEDS ORDERED: oxyCODONE/Acetamin 5/325 MG* TAB PO PRN (00:17)
[2017-02-22] MEDS ORDERED: Morphine INJ* 4 MG/ML 1 ML CARPUJECT IV PRN (00:17)
[2017-02-22] MEDS ORDERED: Acetaminophen TAB* 325 MG PO PRN (00:17)
[2017-02-22] MEDS: ceFAZolin 1 GM VIAL(*) 1 GM in D5W 50 ML BAG* 50 ML IVPB SCH ×2 (00:58→08:39)
[2017-02-22] MEDS: oxyCODONE/Acetamin 5/325 MG* TAB PO PRN ×5 (05:02→21:43)
[2017-02-22 06:28] LABS: Hematocrit 26 % (35-47); Hemoglobin 8.9 g/dl (12.0-16.0); Mean Platelet Volume 8 um3 (7.4-10.4); Platelet Count 182 10^3/ul (150-450)
[2017-02-22 06:44] LABS: EGFR Non-African American 148.1 (>60)
--- NOTE | 2017-02-22 08:09 | PN ---
Progress Note - Progress Note Date of Service: 02/22/17 SOAP: Subjective: []Patient seen at bedside. She is comfortable and has no complaint of pain. Objective: []General: Well appearing, NAD RLE: Dressing CDI. BL LE: Calves supple and nontender without erythema or edema. No palpable cords. DF/PF intact. DP 1+ Vital Signs Temp 98.7 F 02/22/17 07:30 Pulse 88 02/22/17 07:30 Resp 16 02/22/17 07:30 BP 115/58 02/22/17 07:30 Pulse Ox 100 02/22/17 07:30 Intake & Output 02/21/17 02/22/17 02/22/17 18:59 06:59 18:59 Intake Total 2505 3152 Output Total 2550 900 Balance -45 2252 Intake: IV Fluids 2400 952 CEFAZOLIN 3GM IV 100 LR 2300 952 Oral 105 2200 Output: Kramer 1800 900 Emesis 350 Estimated Blood Loss 400 Laboratory Last Values Hgb 8.9 g/dl (12.0-16.0) L 02/22/17 05:41 Hct 26 % (35-47) L 02/22/17 05:41 Plt Count 182 10^3/ul (150-450) 02/22/17 05:41 MPV 8 um3 (7.4-10.4) 02/22/17 05:41 Sodium 134 mmol/L (133-145) 02/22/17 05:41 Potassium 3.9 mmol/L (3.5-5.0) 02/22/17 05:41 Chloride 102 mmol/L (101-111) 02/22/17 05:41 Carbon Dioxide 26 mmol/L (22-32) 02/22/17 05:41 Anion Gap 6 mmol/L (2-11) 02/22/17 05:41 BUN 11 mg/dL (6-24) 02/22/17 05:41 Creatinine 0.45 mg/dL (0.51-0.95) L 02/22/17 05:41 Est GFR ( Amer) 190.5 (>60) 02/22/17 05:41 Est GFR (Non-Af Amer) 148.1 (>60) 02/22/17 05:41 BUN/Creatinine Ratio 24.4 (8-20) H 02/22/17 05:41 Glucose 102 mg/dL (70-100) H 02/22/17 05:41 Calcium 8.5 mg/dL (8.6-10.3) L 02/22/17 05:41 Assessment: []POD 1 s/p Right total hip replacement Plan: []WBAT PT/OT Will order B1 level as requested by patient Lovenox 40 mg today. 60 mg /,5,6.
[2017-02-22] MEDS: celeCOXIB CAP* 200 MG PO SCH ×2 (08:39→20:33)
[2017-02-22] MEDS: Docusate CAP* 100 MG PO SCH ×2 (08:39→20:29)
[2017-02-22] MEDS ORDERED: DiMENhydriNATE IV* 50 MG/ML VIAL IV PUSH PRN (10:02)
[2017-02-22] MEDS ORDERED: Enoxaparin(*) 40 MG/0.4 ML SYR SUBCUT SCH (12:00)
[2017-02-22 16:21] LABS: Hematocrit 26 % (35-47); Hemoglobin 9.1 g/dl (12.0-16.0)
[2017-02-22] MEDS: Cyanocobalamin TAB* 500 MCG PO SCH (18:13)
[2017-02-22] MEDS: Oxybutynin XL TAB* 5 MG PO SCH (18:13)
[2017-02-22] MEDS: Divalproex ER TAB(*) 500 MG PO SCH (18:14)
[2017-02-23] MEDS: oxyCODONE/Acetamin 5/325 MG* TAB PO PRN ×3 (04:55→15:23)
[2017-02-23 05:15] LABS: ABS Basophils 0 10^3/ul (0-0.2); ABS Eosinophils 0.1 10^3/ul (0-0.6); ABS Lymphocytes 2.8 10^3/ul (1.0-4.8); ABS Monocytes 0.8 10^3/ul (0-0.8); ABS Neutrophils 4.6 10^3/ul (1.5-7.7); ABS Nucleated RBC 0 10^3/ul; Eosinophil % 0.9 % (0-6); Hematocrit 25 % (35-47); Hemoglobin 8.4 g/dl (12.0-16.0); Lymphocyte % 33.9 % (25-47); Mean Corpuscular HGB Conc 34 g/dl (31-36); Mean Corpuscular Hemoglobin 31 pg (27-31); Mean Corpuscular Volume 91 fL (80-97); Mean Platelet Volume 8 um3 (7.4-10.4); Nucleated Red Blood Cells % 0; Platelet Count 182 10^3/ul (150-450); Red Blood Count 2.74 10^6/ul (4.0-5.4); Red Cell Distribution Width 13 % (10.5-15); White Blood Count 8.4 10^3/ul (3.5-10.8)
[2017-02-23 05:32] LABS: EGFR Non-African American 128.2 (>60)
[2017-02-23] MEDS ORDERED: Enoxaparin(*) 60 MG/0.6 ML SYR SUBCUT SCH (09:00)
[2017-02-23] MEDS: celeCOXIB CAP* 200 MG PO SCH (09:18)
[2017-02-23] MEDS: Docusate CAP* 100 MG PO SCH (09:20)
--- NOTE | 2017-02-23 13:28 | PN ---
Progress Note - Progress Note Date of Service: 02/23/17 SOAP: Subjective: [] Patient seen at bedside. Her pain is well controlled and she desires to DC today. Denies CP, SOB, leg numbness and nausea. Objective: [] Laboratory Last Values WBC 8.4 10^3/ul (3.5-10.8) 02/23/17 04:46 RBC 2.74 10^6/ul (4.0-5.4) L 02/23/17 04:46 Hgb 8.4 g/dl (12.0-16.0) L 02/23/17 04:46 Hct 25 % (35-47) L 02/23/17 04:46 MCV 91 fL (80-97) 02/23/17 04:46 MCH 31 pg (27-31) 02/23/17 04:46 MCHC 34 g/dl (31-36) 02/23/17 04:46 RDW 13 % (10.5-15) 02/23/17 04:46 Plt Count 182 10^3/ul (150-450) 02/23/17 04:46 MPV 8 um3 (7.4-10.4) 02/23/17 04:46 Neut % (Auto) 55.5 % (38-83) 02/23/17 04:46 Lymph % (Auto) 33.9 % (25-47) 02/23/17 04:46 [place] % (Auto) 9.2 % (1-9) H 02/23/17 04:46 Eos % (Auto) 0.9 % (0-6) 02/23/17 04:46 Baso % (Auto) 0.5 % (0-2) 02/23/17 04:46 Absolute Neuts (auto) 4.6 10^3/ul (1.5-7.7) 02/23/17 04:46 Absolute Lymphs (auto) 2.8 10^3/ul (1.0-4.8) 02/23/17 04:46 Absolute Monos (auto) 0.8 10^3/ul (0-0.8) 02/23/17 04:46 Absolute Eos (auto) 0.1 10^3/ul (0-0.6) 02/23/17 04:46 Absolute Basos (auto) 0 10^3/ul (0-0.2) 02/23/17 04:46 Absolute Nucleated RBC 0 10^3/ul 02/23/17 04:46 Nucleated RBC % 0 02/23/17 04:46 Sodium 137 mmol/L (133-145) 02/23/17 04:46 Potassium 3.9 mmol/L (3.5-5.0) 02/23/17 04:46 Chloride 103 mmol/L (101-111) 02/23/17 04:46 Carbon Dioxide 28 mmol/L (22-32) 02/23/17 04:46 Anion Gap 6 m mol/L (2-11) 02/23/17 04:46 BUN 9 mg/dL (6-24) 02/23/17 04:46 Creatinine 0.51 mg/dL (0.51-0.95) 02/23/17 04:46 Est GFR ( Amer) 164.8 (>60) 02/23/17 04:46 Est GFR (Non-Af Amer) 128.2 (>60) 02/23/17 04:46 BUN/Creatinine Ratio 17.6 (8-20) 02/23/17 04:46 Glucose 90 mg/dL (70-100) 02/23/17 04:46 Calcium 8.5 mg/dL (8.6-10.3) L 02/23/17 04:46 Iron 24 ug/dL (50-212) L 02/23/17 04:46 TIBC 266 mcg/dL (250-450) 02/23/17 04:46 % Saturation 9 % (15-55) L 02/23/17 04:46 Unsat Iron Binding 242 ug/dL 02/23/17 04:46 Ferritin 102.0 ng/mL (11-307) 02/23/17 04:46 Total Bilirubin 0.40 mg/dL (0.2-1.0) 02/23/17 04:46 AST 16 U/L (13-39) 02/23/17 04:46 ALT 16 U/L (7-52) 02/23/17 04:46 Alkaline Phosphatase 46 U/L (34-104) 02/23/17 04:46 Total Protein 5.9 g/dL (6.4-8.9) L 02/23/17 04:46 Albumin 3.3 g/dL (3.2-5.2) 02/23/17 04:46 Globulin 2.6 g/dL (2-4) 02/23/17 04:46 Albumin/Globulin Ratio 1.3 (1-3) 02/23/17 04:46 Vitamin B12 1213 pg/mL (180-914) H 02/23/17 04:46 25-OH Vitamin D Total 18.2 ng/mL (20-50) L 02/23/17 04:46 Folate 14.21 ng/mL (>3.99) 02/23/17 04:46 Blood Type A Positive 02/22/17 05:41 Antibody Screen Negative 02/22/17 05:41 Crossmatch See Detail 02/22/17 05:41 Vital Signs Temp 97.0 F 02/23/17 11:19 Pulse 106 02/23/17 11:19 Resp 18 02/23/17 11:21 BP 139/81 02/23/17 11:19 Pulse Ox 99 02/23/17 11:19 Intake & Output 02/22/17 02/23/17 02/23/17 18:59 06:59 18:59 Intake Total 1910 1200 360 Output Total 1000 100 250 Balance 910 1100 110 Intake: IV Fluids 787 LR 787 IVPB 108 LR 108 Oral 1015 1200 360 Output: Urine 1000 100 250 Other: Estimated Void Medium Large Medium # Bowel Movements 1 Estimated Stool Amount Large # Voids 1 1 General: Well appearing, NAD RLE: Dressing changed, incision CDI without surrounding erythema. DF/PF intact. 1+ DP pulse BL LE: Calves supple and nontender without erythema Assessment: []POD 2 s/p right total hip arthroplasty Plan: []WBAT PT/OT return to daily dose of lovenox 40 mg sq qd
[2017-02-23 16:07] VITALS: BP 129/62
--- NOTE | 2017-02-24 02:32 | DS ---
DISCHARGE SUMMARY: DATE OF ADMISSION/SURGERY: 02/21/17 DATE OF DISCHARGE: 02/23/17 PROVIDER/SURGEON: Dr. Kale England * (DICTATED BY CHETNA IZQUIERDO) TRAY CASTING MACHINE OPERATOR: CHETNA Murray BACKUP ENGINEER: Suha Croley. PREOP DIAGNOSIS: Severe arthritis of the right hip. OPERATIVE PROCEDURE: Right total hip replacement. HISTORY: Severe arthritis of the right hip. Straight leg raise on her right side causes discomfort in the groin region. She failed conservative treatment and has elected to undergo right total hip arthroplasty. HOSPITAL COURSE: The patient was admitted to [facility] on . She underwent a right total hip replacement without complications. She preceded to the PACU and then to the short stay surgical unit in stable condition. On postop day#1, she was well appearing, in no acute distress. Her dressing was clean, dry, and intact. Calves were supple and nontender without erythema or edema. No palpable cords. Dorsiflexion and plantar flexion intact. Dorsalis pedis pulse 1+. Hemoglobin was 9.1, hematocrit 26. On postop day #2, the patient was well appearing, in no acute distress. Dressing was changed. Incision was clean, dry, and intact without surrounding erythema. Dorsiflexion and plantar flexion intact. 1+ dorsalis pedis pulse. Calves were supple and nontender without erythema. Her hemoglobin was 8.4 and hematocrit was 25. Vital signs on day of discharge: Temp 97.0, pulse rate 106, respiratory rate 18 , oxygen saturation 99%, blood pressure 139/81. The patient was deemed to be medically and orthopedically stable for discharge home. DISCHARGE MEDICATIONS: 1. B12 1000 mcg daily. 2. Omeprazole 40 mg p.o. b.i.d. 3. Multivitamin 2 tabs daily. 4. Depakote ER 1500 mg q.p.m. 5. Iron 65 mg one tab p.o. q.p.m. 6. Celebrex, discontinued. 7. Oxybutynin chloride 2 tabs p.o. q.p.m. 5 mg. 8. Ibuprofen 800 mg p.o. t.i.d. p.r.n. 9. Glucosamine chondroitin with vitamin C 3 tabs p.o. q.a.m. 10. Lovenox 40 mg per 0.4 mL syringe q.p.m. 11. Calcium citrate plus D 630 mg one tab p.o. q.p.m. 12. Acetaminophen 650 mg p.o. q.4 hours p.r.n., not to exceed 4000 mg per day. 13. Docusate 100 mg p.o. b.i.d. 14. Discontinue Lovenox 60 mg. 15. Oxycodone/acetaminophen 5/325 mg two tabs p.o. q.4 hours p.r.n., not to exceed 10 tabs per day. DISCHARGE PLAN: Weightbearing as tolerated. Hip precautions. Okay to shower. Do not submerge wound. Call the office with increased drainage, redness, increased pain, or fever. Go to the emergency room with shortness of breath or chest pain. Continue physical therapy and occupational therapy. Home nurses will remove jefferson in 10 to 12 days. DVT and PE prophylaxis. Lovenox 40 mg subcu daily. Pain control with Percocet 5/325 mg one to two tabs every 4 to 6 hours as needed for pain, max of 10 per day. Follow up with Dr. England within four weeks. CHETNA IZQUIERDO [id number]/[facility] #: [id number] MTDD
== END 2017-02-23 16:10 | disposition home or self-care (01) | DRG 470 ==
LOC: OR 05:56 → SSU 14:35
PROVIDERS: ADMIT Orthopaedic Surgery; ATTEND Orthopaedic Surgery
PROC: 0SR902A Replacement of Right Hip Joint with Metal on Polyethylene Synthetic Substitute, Uncemented, Open Approach (ICD-10-PCS; principal; 2017-02-21 07:30)
DX: M16.11 Unilateral primary osteoarthritis, right hip (principal); D62 Acute posthemorrhagic anemia; E66.9 Obesity, unspecified; G43.909 Migraine, unspecified, not intractable, without status migrainosus; R12 Heartburn; G47.33 Obstructive sleep apnea (adult) (pediatric); Z96.642 Presence of left artificial hip joint; K21.9 Gastro-esophageal reflux disease without esophagitis; J45.909 Unspecified asthma, uncomplicated; N32.81 Overactive bladder; F41.9 Anxiety disorder, unspecified; Z88.8 Allergy status to other drugs, medicaments and biological substances; Z91.018 Allergy to other foods; Z79.01 Long term (current) use of anticoagulants; Z90.710 Acquired absence of both cervix and uterus; Z68.41 Body mass index [BMI] 40.0-44.9, adult; Z98.84 Bariatric surgery status; Z87.891 Personal history of nicotine dependence; Z72.89 Other problems related to lifestyle; Z82.49 Family history of ischemic heart disease and other diseases of the circulatory system
CPT/HCPCS: 36415; 62323; 80048; 80053; 82306; 82607; 82728; 82746; 83540; 83550; 84425; 84446; 85014; 85018; 85025; 85049; 86850; 86900; 86901; 86922; 94760; A9270-GY; C1713; C1776; J0690; J1240; J1650; J2250; J2704; J3010

== ENCOUNTER 2017-04-19 15:58 | Emergency (ER) | payer OTHER ==
[2017-04-19 17:47] LABS: ABS Basophils 0.1 10^3/ul (0-0.2); ABS Eosinophils 0.1 10^3/ul (0-0.6); ABS Lymphocytes 2.9 10^3/ul (1.0-4.8); ABS Monocytes 0.6 10^3/ul (0-0.8); ABS Neutrophils 5.1 10^3/ul (1.5-7.7); ABS Nucleated RBC 0 10^3/ul; Eosinophil % 1.1 % (0-6); Hematocrit 35 % (35-47); Lymphocyte % 32.8 % (25-47); Mean Corpuscular HGB Conc 35 g/dl (31-36); Mean Corpuscular Hemoglobin 30 pg (27-31); Mean Corpuscular Volume 88 fL (80-97); Mean Platelet Volume 8 um3 (7.4-10.4); Nucleated Red Blood Cells % 0.1; Platelet Count 267 10^3/ul (150-450); Red Blood Count 3.98 10^6/ul (4.0-5.4); Red Cell Distribution Width 14 % (10.5-15); White Blood Count 8.7 10^3/ul (3.5-10.8)
[2017-04-19 17:56] LABS: INR 0.89 (0.77-1.02)
[2017-04-19 18:02] LABS: EGFR Non-African American 84.7 (>60)
[2017-04-19] MEDS ORDERED: Iohexol 350* (CONTRAST) 500 ML MDV IV ONE (18:11)
--- NOTE | 2017-04-19 18:30 | RAD ---
INDICATION: Pain and swelling. COMPARISON: April 06, 2017 TECHNIQUE: Duplex interrogation of the Lowerextremity was performed. FINDINGS: Deep veins: The common femoral, great saphenous, profunda femoris, proximal, mid, and distal deep femoral, popliteal, posterior tibial, and peroneal veins are patent. There is normal compressibility, augmentation, and phasic flow. Superficial veins: There are thrombosed varicosities similar to the recent study. Popliteal fossa:There is no evidence of a popliteal cyst. Soft tissues:There are no soft tissue abnormalities. IMPRESSION: THROMBOSED VARICOSITIES. NO EVIDENCE OF DEEP VENOUS THROMBOSIS
--- NOTE | 2017-04-19 18:38 | RAD ---
INDICATION: Chest pain. Short of breath. Evaluate for pulmonary embolus. The patient is currently anticoagulated. COMPARISON: CTA chest December 07, 2012 TECHNIQUE: Axial source images were obtained from the thoracic inlet to the hemidiaphragms following administration of [address] angiographic technique was utilized. Coronal and sagittal reconstructed images were acquired. CHEST FINDINGS: Neck/thyroid: The visualized neck to include the thyroid appear normal. Chest wall: There are no acute abnormalities of the bony thorax or chest wall. There is no supraclavicular, infraclavicular, or axillary lymphadenopathy. Lungs : There are no pulmonary parenchymal masses or infiltrates. The pulmonary interstitium appears normal. There are no endobronchial lesions. Cardiomediastinal structures: There is no CT evidence of acute pulmonary embolic disease. The heart is normal in size. There is no pericardial effusion. There is no evidence of aortic aneurysm or dissection. There is no mediastinal or hilar adenopathy. The esophagus appears normal. Pleura : There are no pleural-based masses or effusions. Other: None. IMPRESSION: NO CT EVIDENCE OF ACUTE PULMONARY EMBOLIC DISEASE. LUNGS CLEAR.
[2017-04-19 19:01] VITALS: BP 141/76
--- NOTE | 2017-04-21 07:26 | ED ---
Jorge Mancia Jennifer, scribed for Daniel Lafleur MD on 04/19/17 at 1718 . Shortness of Breath - HPI Summary HPI Summary: The pt is a 51 y/o female who was referred to the ED by [facility] for pain underneath her L shoulder blade three times today. Pt states at times she feels like she has a balloon in her rib cage that makes her feel short of breath and is painful. Pt states she has issues with blood clotting and has black and blue bruises down her left leg. Pt is currently on blood thinners. Pt additionally complains of some leg swelling for the past 3-4 days. - History of Current Complaint Chief Complaint: EDShortnessOfBreath Time Seen by Provider: 04/19/17 17:04 Hx Obtained From: Patient Onset/Duration: Sudden Onset, Still Present Timing: Constant Current Severity: None Aggrevating Factors: Nothing Alleviating Factors: Nothing Associated Signs & Symptoms: Chest Pain Unrelated to Cough, Calf Pain/Swelling Related History: Similar Episode - Allergy/Home Medications Allergies/Adverse Reactions: Allergies Allergy/AdvReac Type Severity Reaction Status Date / Time aspirin Allergy Unknown Verified 04/19/17 18:32 Reaction Details tree nut Allergy Anaphylatic Verified 04/19/17 18:32 Shock PMH/Surg Hx/FS Hx/Imm Hx Endocrine/Hematology History: Denies: Hx Diabetes Cardiovascular History: Reports: Other Cardiovascular Problems/Disorders - Thrombophlebitis. Superficial thrombus vein Denies: Hx Hypertension Respiratory History: Reports: Hx Asthma - A CHILD - NO PROBLEMS NOW, Hx Sleep Apnea, Other Respiratory Problems/Disorders - hx sleep apnea GI History: Reports: Hx Gastroesophageal Reflux Disease - controlled with medication, Other GI Disorders - OCCASIONAL BOWEL AND BLADDER INCONTINENCE- DID PHYSICAL THERAPY FOR Denies: Hx Cirrhosis Musculoskeletal History: Reports: Hx Arthritis - BILATERAL HIPS GREATER IN LEFT HIP, Other Musculoskeletal History - LEFT KNEE Sensory History: Reports: Hx Contacts or Glasses - CONTACTS - WILL WEAR GLASSES DAY OF SURGERY Denies: Hx Hearing Aid Opthamlomology History: Reports: Hx Contacts or Glasses - CONTACTS - WILL WEAR GLASSES DAY OF SURGERY Neurological History: Reports: Hx Headaches - STRESS HEADACHES, Hx Migraine - ON MEDS - Cancer History Hx Chemotherapy: No Hx Radiation Therapy: No - Surgical History Surgery Procedure, Year, and Place: sleeve Gastrectomy 11/2012, varicose vein ligation, Partial Hysterectomy, carpal tunnel right, decor vein right thumb. Hx Anesthesia Reactions: Yes - SLOW TO WAKE UP Infectious Disease History: No Infectious Disease History: Denies: Hx Hepatitis, History Other Infectious Disease, Traveled Outside the [place] in Last 30 Days - Family History Known Family History: Positive: Cardiac Disease, Diabetes - Social History Alcohol Use: Rare Substance Use Type: Reports: None Smoking Status (MU): Never Smoked Tobacco Amount Used/How Often: 2 PPD FOR ABOUT 25 YRS Have You Smoked in the Last Year: No Review of Systems Positive: Chest Pain Positive: Shortness Of Breath Positive: Edema Positive: Bruising - Black and blue bruises down left leg All Other Systems Reviewed And Are Negative: Yes Physical Exam - Summary Physical Exam Summary: Appearance: The patient is obese in no acute distress and in no acute pain. Skin: The skin is warm and dry and skin color reflects adequate perfusion. HEENT: ~The head is normocephalic and atraumatic. The pupils are equal and reactive. The conjunctivae are clear and without drainage. ~Nares are patent and without drainage. ~Mouth reveals moist mucous membranes and the throat is without erythema and exudate. ~The external ears are intact. The ear canals are patent and without drainage. The tympanic membranes are intact. Neck: the neck is supple with full range of motion and non-tender. There are no carotid bruits. ~There is no neck vein distension. Respiratory: Chest is non-tender. ~Lungs are clear to auscultation and breath sounds are symmetrical and equal. Cardiovascular: Heart is regular rate and rhythm. ~There is no murmur or rub auscultated. ~~There is no peripheral edema and pulses are symmetrical and equal. Abdomen: The abdomen is soft and non-tender. ~There are normal bowel sounds heard in all four quadrants and there is no organomegaly palpated. Musculoskeletal: There is no back tenderness noted. ~Extremities are non-tender with full range of motion. ~There is good capillary refill. ~There is very slight ecchymosis in left proximal lateral thigh. Neurological: Patient is alert and oriented to person, place and time. ~The patient has symmetrical motor strength in all four extremities. ~Cranial nerves are grossly intact. Deep tendon reflexes are symmetrical and equal in all four extremities. Psychiatric: The patient has an appropriate affect and does not exhibit any anxiety or depression. Triage Information Reviewed: Yes Vital Signs On Initial Exam: Initial Vitals Temp Pulse Resp BP Pulse Ox 98.2 F 83 16 165/92 99 04/19/17 16:07 04/19/17 16:07 04/19/17 16:07 04/19/17 16:07 04/19/17 16:07 Vital Signs Reviewed: Yes Diagnostics - Vital Signs Vital Signs Temp Pulse Resp BP Pulse Ox 04/19/17 16:07 98.2 F 83 16 165/92 99 - Laboratory Lab Results: Lab Results 04/19/17 04/19/17 04/19/17 Range/Units 17:25 17:25 17:25 WBC 8.7 (3.5-10.8) 10^3/ul RBC 3.98 L (4.0-5.4) 10^6/ul Hgb 12.0 (12.0-16.0) g/dl Hct 35 (35-47) % MCV 88 (80-97) fL MCH 30 (27-31) pg MCHC 35 (31-36) g/dl RDW 14 (10.5-15) % Plt Count 267 (150-450) 10^3/ul MPV 8 (7.4-10.4) um3 Neut % (Auto) 58.1 (38-83) % Lymph % (Auto) 32.8 (25-47) % [place] % (Auto) 7.3 H (0-7) % Eos % (Auto) 1.1 (0-6) % Baso % (Auto) 0.7 (0-2) % Absolute Neuts (auto) 5.1 (1.5-7.7) 10^3/ul Absolute Lymphs (auto) 2.9 (1.0-4.8) 10^3/ul Absolute Monos (auto) 0.6 (0-0.8) 10^3/ul Absolute Eos (auto) 0.1 (0-0.6) 10^3/ul Absolute Basos (auto) 0.1 (0-0.2) 10^3/ul Absolute Nucleated RBC 0 10^3/ul Nucleated RBC % 0.1 INR (Anticoag Therapy) (0.77-1.02) Sodium 136 (133-145) mmol/L Potassium 4.0 (3.5-5.0) mmol/L Chloride 102 (101-111) mmol/L Carbon Dioxide 27 (22-32) mmol/L Anion Gap 7 (2-11) mmol/L BUN 15 (6-24) mg/dL Creatinine 0.73 (0.51-0.95) mg/dL Est GFR ( Amer) 109.0 (>60) Est GFR (Non-Af Amer) 84.7 (>60) BUN/Creatinine Ratio 20.5 H (8-20) Glucose 92 (70-100) mg/dL Lactic Acid (0.5-2.0) mmol/L Calcium 9.7 (8.6-10.3) mg/dL Total Bilirubin 0.30 (0.2-1.0) mg/dL AST 18 (13-39) U/L ALT 17 (7-52) U/L Alkaline Phosphatase 61 (34-104) U/L Troponin I 0.00 (<0.04) ng/mL C-Reactive Protein 6.93 H (< 5.00) mg/L B-Natriuretic Peptide 29 ( - 100) pg/mL Total Protein 8.0 (6.4-8.9) g/dL Albumin 4.4 (3.2-5.2) g/dL Globulin 3.6 (2-4) g/dL Albumin/Globulin Ratio 1.2 (1-3) 04/19/17 04/19/17 Range/Units 17:25 17:25 WBC (3.5-10.8) 10^3/ul RBC (4.0-5.4) 10^6/ul Hgb (12.0-16.0) g/dl Hct (35-47) % MCV (80-97) fL MCH (27-31) pg MCHC (31-36) g/dl RDW (10.5-15) % Plt Count (150-450) 10^3/ul MPV (7.4-10.4) um3 Neut % (Auto) (38-83) % Lymph % (Auto) (25-47) % [place] % (Auto) (0-7) % Eos % (Auto) (0-6) % Baso % (Auto) (0-2) % Absolute Neuts (auto) (1.5-7.7) 10^3/ul Absolute Lymphs (auto) (1.0-4.8) 10^3/ul Absolute Monos (auto) (0-0.8) 10^3/ul Absolute Eos (auto) (0-0.6) 10^3/ul Absolute Basos (auto) (0-0.2) 10^3/ul Absolute Nucleated RBC 10^3/ul Nucleated RBC % INR (Anticoag Therapy) 0.89 (0.77-1.02) Sodium (133-145) mmol/L Potassium (3.5-5.0) mmol/L Chloride (101-111) mmol/L Carbon Dioxide (22-32) mmol/L Anion Gap (2-11) mmol/L BUN (6-24) mg/dL Creatinine (0.51-0.95) mg/dL Est GFR ( Amer) (>60) Est GFR (Non-Af Amer) (>60) BUN/Creatinine Ratio (8-20) Glucose (70-100) mg/dL Lactic Acid 0.9 (0.5-2.0) mmol/L Calcium (8.6-10.3) mg/dL Total Bilirubin (0.2-1.0) mg/dL AST (13-39) U/L ALT (7-52) U/L Alkaline Phosphatase (34-104) U/L Troponin I (<0.04) ng/mL C-Reactive Protein (< 5.00) mg/L B-Natriuretic Peptide ( - 100) pg/mL Total Protein (6.4-8.9) g/dL Albumin (3.2-5.2) g/dL Globulin (2-4) g/dL Albumin/Globulin Ratio (1-3) Result Diagrams: 04/19/17 17:25 04/19/17 17:25 Lab Statement: Any lab studies that have been ordered have been reviewed, and results considered in the medical decision making process. - CT Chest/Thorax CTA CT Interpretation: No Acute Changes - NO CT EVIDENCE OF ACUTE PULMONARY EMBOLIC DISEASE. LUNGS CLEAR. Dr. Lafleur has reviewed this report. CT Interpretation Completed By: Radiologist - EKG 16:11 Cardiac Rate: NL EKG Rhythm: Sinus Rhythm - 83 BPM EKG Interpretation: Normal axis - Additional Comments Diagnostic Additional Comments: Venous Doppler Study. Interpreted by a radiologist. IMPRESSION: THROMBOSED VARICOSITIES. NO EVIDENCE OF DEEP VENOUS THROMBOSIS. Dr. Lafleur has reviewed this report. Course/Dx - Course Course Of Treatment: Ms. Brody came in worried that she may have another DVT or PE. She had some atypical symptoms and when her doppler and CTA were negative , she was relieved. I'm not sure of the etiology of her C/Os. - Diagnoses Provider Diagnoses: Varicose veins of legs, Chest pain Discharge - Discharge Plan Condition: Stable Disposition: HOME Patient Education Materials: Chest Pain (ED), Venous Insufficiency (DC) Referrals: Eliceo Savage MD [Primary Care Provider] - 3 Days Additional Instructions: Follow up with your primary care physician in three days. Return to the emergency department for any new or worsening symptoms. The documentation as recorded by the Jorge cherry Jennifer accurately reflects the service I personally performed and the decisions made by me, Daniel Lafleur MD.
== END 2017-04-19 19:00 | disposition home or self-care (01) ==
LOC: ED 15:58
DX: R07.9 Chest pain, unspecified (principal); R06.02 Shortness of breath; R60.9 Edema, unspecified; Z87.19 Personal history of other diseases of the digestive system; S80.12XA Contusion of left lower leg, initial encounter; X58.XXXA Exposure to other specified factors, initial encounter; Y92.9 Unspecified place or not applicable
CPT/HCPCS: 36415; 71275; 80053; 83605; 83880; 84484; 85025; 85610; 86140; 93005; 99282; Q9967

== ENCOUNTER 2017-08-18 10:36 | Inpatient (IN) | payer OTHER ==
[~2017-08-18 10:36] MED LIST changes: +Clindamycin 900 MG IVPREMIX(* 900 MG/50 ML SDV IV ONE; +Dexamethasone IV* 4 MG/ML 1 ML (4 MG) IV SLOW PU ONE; +Dexamethasone IV* 4 MG/ML 1 ML (4 MG) ONE; +Ondansetron ODT TAB* 4 MG ONE; +Ondansetron ODT TAB* 4 MG PO ONE; +ceFAZolin 1 GM in Dextrose (*) 1 GM/50 ML BAG IVPB ONE; +ceFAZolin 2 GM PREMIX (*) 2 GM/50 ML BAG IVPB ONE
[2017-08-18] MEDS ORDERED: Heparin VIAL(*) 5000 UNITS/ML VIAL (FIVE THOUSAND) ONE (11:17)
[2017-08-18] MEDS ORDERED: Scopolamine 1.5 mg* PATCH TRANSDERM PRN (15:40)
[2017-08-18] MEDS ORDERED: HYDROmorphone INJ* 0.5 MG/0.5 ML SYRINGE IV PRN (15:40)
[2017-08-18] MEDS ORDERED: DiMENhydriNATE IV* 50 MG/ML VIAL IV PUSH PRN (15:40)
[2017-08-18] MEDS ORDERED: Ondansetron INJ* 2 MG/ML VIAL IV PRN ×2 (15:40→15:46)
[2017-08-18] MEDS ORDERED: Naloxone* 0.4 MG/ML 1 ML VIAL IV PRN (15:40)
[2017-08-18] MEDS ORDERED: Acetaminophen ADULT LIQ* 650 MG/20.3 ML UDC PO PRN (15:46)
[2017-08-18] MEDS: fentaNYL* 50 MCG/ML 2 ML VIAL (100 MCG VIAL) IV PRN ×4 (15:46→16:18)
[2017-08-18] MEDS ORDERED: diPHENhydraMINE IV* 50 MG/ML 1 ml VIAL (BENADRYL) SLOW PUSH PRN (15:46)
--- NOTE | 2017-08-18 15:51 | BRIEFOPN ---
Brief Operative Note - Surgery Procedures: Procedures Pre-OP Diagnoses: Clinically severe obesity Post-op Diagnosis: same Procedure: Laparoscopic Alicja an Y gastric bypass Surgeon: Gabbi Asst: Marta Anethesia: PORFIRIO Cheema EBL: minimal IVF: see anes note Specimen: none Drains: none
[2017-08-18] MEDS ORDERED: Ketorolac INJ* 30 MG/ML 1 ML VIAL ONE (18:19)
[2017-08-18] MEDS: Ketorolac INJ* 30 MG/ML 1 ML VIAL IV PRN (18:22)
[2017-08-18] MEDS: Famotidine IV* 10 MG/ML 2 ML (20 mg) IV SLOW PU SCH (20:27)
[2017-08-18] MEDS: HYDROmorphone INJ* 0.5 MG/0.5 ML SYRINGE IV PRN (20:33)
[2017-08-18] MEDS: Heparin VIAL(*) 5000 UNITS/ML VIAL (FIVE THOUSAND) SUBCUT SCH (22:29)
[2017-08-19] MEDS: Ketorolac INJ* 30 MG/ML 1 ML VIAL IV PRN ×3 (01:42→14:34)
--- NOTE | 2017-08-19 03:52 | OP ---
CC: Dr. Eliceo Savage; [facility] OPERATIVE REPORT: DATE OF OPERATION: 08/18/17 DATE OF : 69 SURGEON: Cb Seo MD TELEHEALTH DIRECTOR: Dr. Lozano. ANESTHESIOLOGIST: Dr. hCeema. ANESTHESIA: General anesthesia. PRE-OP DIAGNOSES: 1. Clinically severe obesity. 2. Gastroesophageal reflux disease. POST-OP DIAGNOSES: 1. Clinically severe obesity. 2. Gastroesophageal reflux disease. OPERATIVE PROCEDURE: Laparoscopic Alicja-en-Y gastric bypass procedure. ESTIMATED BLOOD LOSS: Minimal blood loss. FLUIDS: Crystalloid fluid given. See separate anesthesia record for this. SPECIMEN: None. DRAINS: None. COUNTS: Lap pad count and instrument count correct at the end of the procedure. INDICATIONS: Ms. Brody is a 51-year-old female who is 5 years status post laparoscopic sleeve rj rectomy, who had a complicated postoperative course with severe reflux and was started on medications for such. She also had difficult time losing and maintaining weight loss and for this reason, a gas tric bypass was recommended both for the resolution of symptoms and for the morbid obesity. The mian ent understood the risks, benefits, and alternatives of a revisionary bariatric surgery. We discusse d this in the office. We also discussed the possibility of not losing this anticipated weight that o ne would lose with the gastric bypass prior to any other interventions. The patient understood the p ossible complications of bleeding, infection, prolonged hospital course, leak, need for additional pr ocedures, need for feeding tubes, possible ICU care and even , and consent was signed. DESCRIPTION OF PROCEDURE: The patient was identified in the preoperative area, brought to the OR, pl aced on the operating table in supine position. Preoperative antibiotics were given. Sequential dev ices were placed on bilateral lower extremities and general anesthesia was induced. The patient's ab domen was prepped and draped in the standard surgical fashion and a time-out was performed. The fold s of the umbilicus were elevated anteriorly and a Veress needle inserted into the abdominal cavity, w hich was then allowed to insufflate to a pressure of 15 mmHg. The patient tolerated the insufflation well. [place] between the xiphoid and the umbilicus just to the left of midline where the previous i ncision was, another 12 mm trocar was inserted. The laparoscope was inserted through this. Veress n eedle was removed and there was no evidence of injury from the trocar insertion or from the Veress ne edle. Additional trocars were then placed in the following position: 12 mm in the right upper quadr ant, 12 mm in the left upper quadrant. Adhesions to the anterior abdominal wall from omentum were freya en down from the midline prior to placing the right upper quadrant trocar. Next, we were able to lift the liver up and look underneath. There was sleeved stomach that appeared large, but without any significant adhesions or no twisting. Additional 5 [address] tro[address] were then place d in the left lateral and a Dayne retractor was inserted through a subxiphoid incision. Th e liver was retracted anteriorly into the right. This exposed the top of the gastric sleeve. Again, we could identify pylorus and lateral aspect of the sleeve stomach. This was attached to omentum an d this was taken down with both scissors and LigaSure device until we could look behind the stomach a ltogether. Next, at approximately the third crossing vessel, a retrogastric window was made on the lesser curvat ure. We fired a 60-mm kaplan GARRY stapling device through the stomach, but it still did not fully transe ct the stomach. There appeared to be another 0.5 cm or so of stomach beyond the staple line and so w kirby completed this with an additional 45 mm kaplan GARRY stapling device. Now, we had the stomach pouch. Again, this appeared somewhat dilated of a sleeve stomach, but I felt that this would be a good tissue to perform a gastric bypass on without making the pouch any smaller . We then turned our attention to the omentum. This was split with LigaSure device to allow for bett er access. We did have to take down adhesions to the pelvis of the omentum prior to be able to lift this anteriorly and ultimately split. The transverse colon was retracted anteriorly and the ligament of Treitz was identified. We countere d off approximately 40 cm of bowel and brought this up to the area of the stomach pouch with the prop er orientation. We placed stay sutures from the small bowel to the edge of the sleeve stomach. Next , an Jayson tube was placed by the anesthesiologist into the distal pouch. A gastrotomy was created o elly this with electrocautery and an enterotomy was made adjacent to this. The two were made for the gastrojejunostomy anastomosis with a 30-mm kaplan GARRY stapling device. It was widely patent and the com mon defect was reapproximated with running 3-0 PDS suture starting superiorly and inferiorly and tyin g them in the middle. Next, the bowel was transected at the area of the gastrojejunostomy to allow for the Alicja limb to sit appropriately. We then clamped the Alicja limb and placed an Jayson tube through the anastomosis. Thi s passed easily. We then did a methylene blue dye test and there was no evidence of blue dye extrava sation. This was suctioned back through the tube by the anesthesiologist and then the tube was remov ed. Attention was turned towards this Alicja limb and approximately 80 cm was countered off. This was brou ght in that position to biliopancreatic limb and enterotomy was created and a jejunojejunostomy made with a 30 mm kaplan GARRY stapling device. The common defect was reapproximated with interrupted 2-0 silk suture in a figure-of- eight fashion and the mesenteric defect was similarly closed. Review of the abdomen showed no bleeding. Both anastomosis appeared intact. The liver was enlarged, but not disea sed in any way. We then removed the Dayne retractor and allowed the abdomen to collapse there. All trocars were removed under direct vision and all 6 skin incisions were reapproximated with 4-0 Mo nocryl subcuticular sutures followed by Steri-Strips and sterile dressing. The patient tolerated the procedure well and was awoken up in the OR and transferred to the PACU in stable condition. [id number]/[facility] #: [id number]
[2017-08-19] MEDS: Heparin VIAL(*) 5000 UNITS/ML VIAL (FIVE THOUSAND) SUBCUT SCH ×3 (05:42→21:23)
[2017-08-19] MEDS: Famotidine IV* 10 MG/ML 2 ML (20 mg) IV SLOW PU SCH ×2 (08:23→21:22)
--- NOTE | 2017-08-19 09:18 | PN ---
Progress Note - Progress Note Date of Service: 08/19/17 SOAP: Subjective: Pt seen and examined. Walked together, Pos abdo pain, No nausea Objective: af Tm 99, vss lungs clear abdo: soft/ obese, tender at epigastrum no calf tenderness Assessment: POD1 RYGB Plan: UGI advance to clears D/c planning
--- NOTE | 2017-08-19 10:57 | RAD ---
Indication: Status post gastric bypass. Upper GI series was performed utilizing water-soluble contrast. The oral and frontal phase of deglutition appear unremarkable. The esophagus appears normal in anatomy and function. Gastric pouch is intact with no evidence of extraluminal contrast. No evidence of obstruction is noted. IMPRESSION: No extraluminal contrast is noted with no evidence of obstruction. Contrast freely transited to the small intestine.
[2017-08-19] MEDS: D5W 1/2 NS KCl 20 Meq 1000 ML* 1,000 ML IV SCH (16:06)
[2017-08-19] MEDS: HYDROmorphone INJ* 0.5 MG/0.5 ML SYRINGE IV PRN (16:19)
[2017-08-19] MEDS: HYDROcodone/ACET. 7.5/325 LIQ* 15 ML UDC PO PRN (21:21)
[2017-08-20] MEDS: D5W 1/2 NS KCl 20 Meq 1000 ML* 1,000 ML IV SCH ×2 (00:05→08:04)
[2017-08-20] MEDS: HYDROcodone/ACET. 7.5/325 LIQ* 15 ML UDC PO PRN ×2 (02:23→10:34)
[2017-08-20] MEDS: Heparin VIAL(*) 5000 UNITS/ML VIAL (FIVE THOUSAND) SUBCUT SCH (06:18)
[2017-08-20] MEDS: Famotidine IV* 10 MG/ML 2 ML (20 mg) IV SLOW PU SCH (08:04)
[2017-08-20] MEDS: Ketorolac INJ* 30 MG/ML 1 ML VIAL IV PRN (11:53)
[2017-08-20 11:59] VITALS: BP 146/76
--- NOTE | 2017-08-20 12:00 | DS ---
CC: Dr. Eliceo Savage; [facility] * DISCHARGE SUMMARY: DATE OF ADMISSION: 08/18/17 DATE OF DISCHARGE: 08/20/17 HISTORY: Ms. Brody is a 51-year-old female who presented to [facility] Day Surgery and underwent a laparoscopic Alicja-en-Y gastric bypass. Please see operative for details. The patient was transferred to the PACU and onto the short stay surgical unit. Her postoperative course was mostly uneventful. She underwent upper GI study on postoperative day 1 and was started on liquid diet. She tolerated liquid diet by postoperative day 2. Plan was for discharge home and followup in the office. On day of discharge, physical exam was performed. The patient was afebrile for 24 hours with a T-max of 99.1, vital signs are stable. Alert and oriented x3, in no apparent distress. Lungs: Clear to auscultation bilaterally. Abdomen: Soft, nondistended. Mild tenderness in the epigastrium. Dressings removed. Steri- Strips in place. No erythema. Mild ecchymosis. No calf tenderness. IMPRESSION: Postoperative day 2 from Alicja-en-Y gastric bypass, conversion of sleeve to gastric bypass. The patient is stable and ready for discharge home. Plan is for holding most of her meds with the exclusion of the pantoprazole. She will continue with this. We will hold vitamins. The patient has an appointment already for next week. She understands, I will be out of town for the next 10 days. [id number]/[facility] #: [id number] WILLIAM
== END 2017-08-20 12:30 | disposition home or self-care (01) | DRG 621 ==
LOC: AA 10:36 → SSU 18:03
PROVIDERS: ADMIT Surgery; ATTEND Surgery
PROC: 0D164ZA Bypass Stomach to Jejunum, Percutaneous Endoscopic Approach (ICD-10-PCS; principal; 2017-08-18 12:00)
DX: E66.01 Morbid (severe) obesity due to excess calories (principal); K21.9 Gastro-esophageal reflux disease without esophagitis; G43.909 Migraine, unspecified, not intractable, without status migrainosus; Z96.643 Presence of artificial hip joint, bilateral; G47.33 Obstructive sleep apnea (adult) (pediatric); I10 Essential (primary) hypertension; Z98.84 Bariatric surgery status; Z88.6 Allergy status to analgesic agent; Z82.49 Family history of ischemic heart disease and other diseases of the circulatory system; Z68.42 Body mass index [BMI] 45.0-49.9, adult
CPT/HCPCS: 43644; 74246; A9270-GY; C1776; J0690; J1100; J1170; J1644; J1885; J2405

== ENCOUNTER 2017-09-09 15:48 | Emergency (ER) | payer OTHER ==
--- OUTSIDE RECORDS SUMMARY | 2017-09-09 15:53 | XMS REPORT ---
:1965 External Reference #:[id number] Author Organization [facility] Address [address] [place] [address] [place] [address] Phone [phone] Care Team Providers Name Role Phone Eliceo Savage MD Primary Care Physician Unavailable Payers Type Date Identification Numbers Payment Provider Subscriber Commercial Expires: Policy Number: Meena Laith Brody 2016 [id number] Group Number: [id number] [address] [address] PayID: [id number] SVETA Mcgrath [id number] [employer] B Policy Number: [id number] [employer] Daniel Brody Group Number: [id number] [address] PayID: [id number] [place] [address] Problems Date Description Provider Status Onset: 12/31/2015 Gastroesophageal reflux disease Cb Seo MD Active Onset: 12/31/2015 Migraine Cb Seo MD Active Onset: 08/31/2016 Prosthetic arthroplasty of the hip Kale England M.D. Active Onset: 08/31/2016 Localized, primary osteoarthritis of the Kale England M.D. Active pelvic region and thigh Family History Date Family Member(s) Problem(s) Comments General Hypertension General Stroke General Cancer General Diabetes Social History Type Date Description Comments Lives With ETOH Use Denies alcohol use Smoking Patient is a former smoker Exercise Type/Frequency Does not exercise Allergies, Adverse Reactions, Alerts Date Description Reaction Status Severity Comments 12/31/2015 NKDA active Medications Medication Date Status Form Strength Qnty SIG Indications Ordering Provider Percocet 03/07/ Active Tablets 5-325mg 60tab 1 -2 tabs by k 2017 s mouth every Samanta, 4-6 hours as M.D. needed pain Lovenox 02/27/ Active Solution 40mg/0.4ML 14uni 1 injection Dirk 2017 ts subcutaneous Samanta, every 24 M.D. hours Amoxicillin 11/09/ Active Capsules 500mg 4caps 4 tablets 1 Dirk 2016 hour before Samanta, dental work M.D. Celebrex 10/05/ Active Capsules 200mg 60cap 1 by mouth Dirk 2016 s twice a day Duyen England Commode 04/12/ Active Misc 3-In-1 1unit bariatric Dirk 3-In-1 2016 s commode Samanta, please. M.D. Bariatric 03/23/ Active Disp 1. Dirk Walker/Adjust 2016 Bariatric Samanta, able Height Walker Ht 70" M.D. Wt 300lb dx m16.12 & m16.11 Walker 03/16/ Active Misc Fixed 5" M16.12 Dirk Wheels/Fixed 2017 Samanta, With 5 M.D. Adjustment Holes/5" Walker/Two-Bu 03/16/ Active Misc Patient needs M16.12 Dirk tton 2016 walker that Samanta, Folding/Titan is tall M.D. ium enough and wide enough Thanks, MD Kya. dx: m16.12 & m16.11 height=70" weight=#280 Mobic 02/02/ Active Tablets 15mg 30tab one tablet M16.12 Dirk 2015 s daily Duyen England 02/02/ Active Misc M16.11 Dirk 2015 Duyen England Omeprazole / Active Capsules 40mg 1 by mouth Unknown 0000 DR every day Depakote / Active Tablets DR 500mg 1 tab by Unknown 0000 mouth twice a day Citracal / Active Tablets 200-250mg- 1-2 tabs per Unknown Petites/Vitam 0000 Unit day in D Womens One / Active Tablets 1 by mouth Unknown Daily 0000 every day Vitamin B-12 / Active Tablets 2500mcg every day Unknown 0000 Natural Vitamin D / Active Capsules 2000Unit 1 by mouth Unknown (Cholecalcife 0000 every day rol) Iron / Active Tablets 325(65Fe) 1 by mouth Unknown 0000 mg every day Ibuprofen / Active Tablets 800mg by mouth Unknown 0000 three times a day as needed Azo Bladder / Active Capsules Unknown Control/Go-Le 0000 ss Enoxaparin / Active Solution 60mg/0.6ML 1 dose daily Unknown Sodium 0000 x 6 days Oxycodone-Naveed 07/13/ Hx Tablets 5-325mg 45tab 1 tabs by Z96.642 Dirk taminophen 2016 - s mouth every 8 Samanta, 08/15/ hours as M.D. 2016 needed for pain Warfarin 06/30/ Hx Tablets 2mg 60tab 1-3 tabs po Dirk Sodium 2016 - s every evening Samanta, 08/15/ as directed M.D. 2016 by MD Schmidt 06/30/ Hx Capsules 100mg 30cap 1 by mouth Dirk Softener 2016 - s every day Samanta, 08/15/ M.DKenyatta 2016 Oxycodone-Naveed 06/30/ Hx Tablets 5-325mg 90tab 1-2 tabs by Dirk taminophen 2016 - mouth every Samanta, 07/13/ 4-6 hours as M.D. 2016 needed for pain Tylenol With / Hx Tablets 300-30mg 1 tab by Unknown Codeine #3 0000 - mouth every 4 02/24/ to 6 hours as 2017 needed Vital Signs Date Vital Result Comment 08/28/2017 Height 70.5 inches 5'10.50" Weight 313.00 lb BP Systolic 138 mmHg BP Diastolic 80 mmHg Respiratory Rate 18 /min Pain Level 1 BMI (Body Mass Index) 44.3 kg/m2 05/29/2017 Height 70.5 inches 5'10.50" Weight 313.00 lb Heart Rate 72 /min BP Systolic 156 mmHg BP Diastolic 78 mmHg Respiratory Rate 16 /min Body Temperature 98.5 F Pain Level 3 BMI (Body Mass Index) 44.3 kg/m2 04/03/2017 Height 70.5 inches 5'10.50" Weight 313.00 lb BP Systolic 122 mmHg BP Diastolic 72 mmHg Respiratory Rate 20 /min Body Temperature 98.1 F Pain Level 5 BMI (Body Mass Index) 44.3 kg/m2 03/13/2017 Height 70.5 inches 5'10.50" Weight 313.00 lb BP Systolic 130 mmHg BP Diastolic 70 mmHg Respiratory Rate 20 /min Body Temperature 97.8 F Pain Level 5 BMI (Body Mass Index) 44.3 kg/m2 02/01/2017 Height 70.5 inches 5'10.50" Weight 313.00 lb Heart Rate 90 /min BP Systolic 152 mmHg BP Diastolic 96 mmHg Body Temperature 98.4 F BMI (Body Mass Index) 44.3 kg/m2 11/07/2016 Heart Rate 94 /min BP Systolic Sitting 170 mmHg BP Diastolic Sitting 105 mmHg Body Temperature 98.8 F 08/31/2016 Height 71 inches 5'11" Weight 300.00 lb Heart Rate 88 /min BP Systolic 165 mmHg BP Diastolic 97 mmHg Body Temperature 97.6 F BMI (Body Mass Index) 41.8 kg/m2 08/17/2016 Height 71 inches 5'11" Weight 300.00 lb Heart Rate 90 /min BP Systolic 159 mmHg BP Diastolic 96 mmHg Body Temperature 98.0 F BMI (Body Mass Index) 41.8 kg/m2 07/20/2016 Height 71 inches 5'11" Weight 300.00 lb Respiratory Rate 18 /min Body Temperature 98.5 F Pain Level 0 BMI (Body Mass Index) 41.8 kg/m2 07/13/2016 Height 71 inches 5'11" Weight 300.00 lb Heart Rate 88 /min BP Systolic 160 mmHg BP Diastolic 100 mmHg Respiratory Rate 16 /min Body Temperature 97.8 F Pain Level 8 BMI (Body Mass Index) 41.8 kg/m2 06/20/2016 Height 71 inches 5'11" Weight 300.00 lb Heart Rate 83 /min BP Systolic 155 mmHg BP Diastolic 104 mmHg Body Temperature 97.9 F BMI (Body Mass Index) 41.8 kg/m2 03/16/2016 Height 70 inches 5'10" Weight 280.00 lb Pain Level 6 BMI (Body Mass Index) 40.2 kg/m2 02/03/2016 Height 70 inches 5'10" Weight 280.00 lb Heart Rate 64 /min BP Systolic Sitting 142 mmHg BP Diastolic Sitting 80 mmHg Respiratory Rate 16 /min Pain Level 5 BMI (Body Mass Index) 40.2 kg/m2 12/31/2015 Height 70 inches 5'10" Weight 296.00 lb Heart Rate 88 /min BP Systolic Sitting 144 mmHg BP Diastolic Sitting 92 mmHg Respiratory Rate 16 /min BMI (Body Mass Index) 42.5 kg/m2 Results Test Date Test Result H/L Range Note CBC No Diff 08/09/2017 White Blood Count 8.1 10^3/uL 3.5-10.8 Red Blood Count 4.24 10^6/uL 4.00-5.40 Hemoglobin 13.5 g/dL 12.0-16.0 Hematocrit 38 % 35-47 Mean Corpuscular Volume 89 fL 80-97 Mean Corpuscular Hemoglobin 32 pg High 27-31 Mean Corpuscular HGB Conc 36 g/dL 31-36 Red Cell Distribution Width 13 % 10.5-15 Platelet Count 296 10^3/uL 150-450 1 Mean Platelet Volume 8.3 um3 7.4-10.4 Basic Metabolic Panel 08/09/2017 Sodium 137 mmol/L 135-145 Chloride 104 mmol/L 101-111 Co2 Carbon Dioxide 23 mmol/L 22-32 Calcium 9.7 mg/dL 8.6-10.3 2 Glucose 93 mg/dL 70-100 3 Blood Urea Nitrogen 12 mg/dL 6-24 4 Creatinine 0.70 mg/dL 0.51-0.95 5 BUN/Creatinine Ratio 17.1 8-20 Egfr Non- 88.9 >60 Egfr 114.4 >60 6 Potassium TNP mmol/L 3.5-5.0 7 Anion Gap 10 mmol/L 2-11 CBC No Diff 02/08/2017 White Blood Count 6.8 10^3/uL 3.5-10.8 8 Red Blood Count 4.28 10^6/uL 4.0-5.4 8 Hemoglobin 13.1 g/dL 12.0-16.0 8 Hematocrit 39 % 35-47 8 Mean Corpuscular Volume 91 fL 80-97 8 Mean Corpuscular Hemoglobin 31 pg 27-31 8 Mean Corpuscular HGB Conc 34 g/dL 31-36 8 Red Cell Distribution Width 13 % 10.5-15 8 Platelet Count 284 10^3/uL 150-450 8 Mean Platelet Volume 8 um3 7.4-10.4 8 Inr/Protime 02/08/2017 Inr 0.90 0.77-1.02 8, 9 Laboratory test finding 02/08/2017 Partial Thrombo 30.9 seconds 26.0- 36.3 8, 10 Time PTT Type & Screen 02/08/2017 Patient Blood Type A Positive 8 Antibody Screen NEGATIVE 8 Urinalysis Profile 02/08/2017 Urine Color Straw Urine Appearance Clear Urine Specific Oto 1.005 Low 1.010-1.030 Urine pH 7.0 5-9 Urine Urobilinogen Negative Negative Urine Ketones Negative Negative Urine Protein Negative Negative Urine Leukocytes 1+ Negative Urine Blood Negative Negative Urine Nitrite Negative Negative Urine Bilirubin Negative Negative Urine Glucose Negative Negative Urine White Blood Cell Trace(0-5/hpf) Absent Urine Red Blood Cell Trace(0-2/hpf) Absent Urine Bacteria Absent Absent Urine Squamous Epithelial Cell Present Absent Urine Culture And 02/08/2017 Urine Culture SEE RESULT BELOW 11 Sensitivities Comp Metabolic Panel 02/08/2017 Sodium 138 mmol/L 133-145 8 Potassium 4.1 mmol/L 3.5-5.0 8 Chloride 103 mmol/L 101-111 8 Co2 Carbon Dioxide 28 mmol/L 22-32 8 Anion Gap 7 mmol/L 2-11 8 Glucose 83 mg/dL 70-100 8 Blood Urea Nitrogen 11 mg/dL 6-24 8 Creatinine 0.58 mg/dL 0.51-0.95 8 BUN/Creatinine Ratio 19.0 8-20 8 Calcium 9.4 mg/dL 8.6-10.3 8 Total Protein 7.7 g/dL 6.4-8.9 8 Albumin 4.5 g/dL 3.2-5.2 8 Globulin 3.2 g/dL 2-4 8 Albumin/Globulin Ratio 1.4 1-3 8 Total Bilirubin 0.40 mg/dL 0.2-1.0 8 Alkaline Phosphatase 66 U/L 34-104 8 Alt 30 U/L 7-52 8 Ast 28 U/L 13-39 8 Egfr Non- 110.5 >60 8 Egfr 142.1 >60 8, 12 Inr/Protime 07/21/2016 Inr 1.89 High 0.89-1.11 Inr/Protime 07/19/2016 Inr 1.89 High 0.89-1.11 Inr/Protime 07/14/2016 Inr 1.83 High 0.89-1.11 Inr/Protime 07/07/2016 Inr 2.18 High 0.89-1.11 Type & Screen 06/20/2016 Patient Blood Type A Positive 13 Antibody Screen NEGATIVE 13 CBC No Diff 06/20/2016 White Blood Count 7.3 10^3/uL 3.5-10.8 13 Red Blood Count 4.09 10^6/uL 4.0-5.4 13 Hemoglobin 12.3 g/dL 12.0-16.0 13 Hematocrit 37 % 35-47 13 Mean Corpuscular Volume 91 fL 80-97 13 Mean Corpuscular Hemoglobin 30 pg 27-31 13 Mean Corpuscular HGB Conc 33 g/dL 31-36 13 Red Cell Distribution Width 13 % 10.5-15 13 Platelet Count 239 10^3/uL 150-450 13 Mean Platelet Volume 8 um3 7.4-10.4 13 Basic Metabolic Panel 06/20/2016 Sodium 138 mmol/L 133-145 13 Potassium 4.1 mmol/L 3.5-5.0 13 Chloride 102 mmol/L 101-111 13 Co2 Carbon Dioxide 28 mmol/L 22-32 13 Anion Gap 8 mmol/L 2-11 13 Glucose 93 mg/dL 70-100 13 Blood Urea Nitrogen 13 mg/dL 6-24 13 Creatinine 0.64 mg/dL 0.51-0.95 13 BUN/Creatinine Ratio 20.3 High 8-20 13 Calcium 9.5 mg/dL 8.6-10.3 13 Egfr Non- 99.0 >60 13 Egfr 127.4 >60 13, 14 Laboratory test finding 06/20/2016 Partial Thrombo 31.0 seconds 26.0- 36.3 13, 15 Time PTT Inr/Protime 06/20/2016 Inr 0.89 0.89-1.11 13 1 Platelet count confirmed by estimate 2 Specimen hemolyzed. Result may not be valid. 3 Specimen hemolyzed. Result may not be valid. 4 Specimen hemolyzed. Result may not be valid. 5 Specimen hemolyzed. Result may not be valid. 6 Because ethnic data is not always readily [...] 15-29 5 Kidney failure <15 (or dialysis) 7 Specimen Hemolyzed. Result may not be valid. Unable to report test result due to hemolysis. 8 UNILATERAL PRIMARY OSTEOARTHRITIS, RIGHT HIP 9 Please note the change in INR reference range effective 17. 10 AA 02/21 11 SEE RESULT BELOW Name: LAITH BRODY Yamile : [address]: Kale England MD Acct: [id number] Unit: [id number] AGE: 51 Location: [facility]IN [facility] Re02/08/17 SEX: F Status: REG REF SPEC: [id number] ELYSE: 02/08/17-5 [facility] DR: Kale England MD REQ: [id number] RECD: 02/08/17-1116 STATUS: JULY MCCRARY DR: Eliceo Savage MD _ SOURCE: URINE SPDESC: ORDERED: Urine Culture QUERIES: Urine Source: Random Procedure Result Reported Site Urine Culture Final 02/10/17- 1026 ML No growth of clinically significant organisms * ML - MAIN LAB ([facility]) . END OF REPORT * ML=Testing performed at Main Lab DEPARTMENT OF PATHOLOGY, [address] [place] [address] Suman Hernandez M.D. Director [facility] # [id number] 12 Because ethnic data is not always readily [...] 15-29 5 Kidney failure <15 (or dialysis) 13 SD 559151 14 Because ethnic data is not always [...] 5 Kidney failure <15 (or dialysis) 15 SD 167457 Procedures Date CPT Code Description Status 05/10/2017 57501 Esophagogastroduodenoscopy, diagnostic, incl brush/wash Completed if perfor 02/21/2017 03211 THR Total Hip Replacement Completed 02/21/2017 04940 THR Total Hip Replacement Completed 02/21/2017 75926 THR Total Hip Replacement Completed 02/08/2017 55151 EKG, Interpretation Only Completed 07/13/2016 30767 Inject/Drain Joint/Bursa Major W/O US Completed 06/28/2016 80780 THR Total Hip Replacement Completed 06/28/201605044 THR Total Hip Replacement Completed 06/28/2016 62986 THR Total Hip Replacement Completed 11/19/2012 66829 EKG, Interpretation Only Completed Encounters Type Date Location Provider CPT E/M Dx Office Visit 08/28/2017 9:15a [facility] M.D. 49859 Z96.641 C.M.A. Z96.642 Office Visit 05/29/2017 3:30p [facility] M.D. 04212 Z96.641 C.M.A. Z96.642 Z47.1 Office Visit 11/07/2016 1:45p [facility] M.D. 58615 M16.11 C.M.A. Office Visit 08/17/2016 2:30p [facility] M.D. 81833 M16.11 C.M.A. M25.551 Office Visit 03/16/2016 9:30a [facility] M.D. 24764 M16.12 C.M.AKenyatta Office Visit 02/03/2016 10:30a [facility] M.D. 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
[2017-09-09 15:58] VITALS: BP 152/103
--- NOTE | 2017-09-09 16:23 | UC ---
Dental HPI - HPI Summary HPI Summary: This is Ansley cherry, documenting for attending, Jony Raines MD. This patient is a 51 year old F presenting to [facility] with a chief complaint of progressively worsening left sided jaw pain worse on the top than the bottom beginning two days ago. Pain is 10/10, that is causing difficultly eating and sleeping. Pain aggravated by cold. Reports history of cavities, root canals, and fillings. Last dental work performed sometime between February 2017 and June 2017. - History of Current Complaint Chief Complaint: UCDentalProblem Stated Complaint: TOOTH ACHE Time Seen by Provider: 09/09/17 16:14 Hx Obtained From: Patient Hx Last Menstrual Period: menopausal Onset/Duration: Lasting Days Severity: Severe Pain Intensity: 10 Pain Scale Used: 0-10 Numeric Aggravating Factor(s): Cold Related History: Other - hx of poor dental health - Allergies/Home Medications Allergies/Adverse Reactions: Allergies Allergy/AdvReac Type Severity Reaction Status Date / Time tree nut Allergy Anaphylatic Verified 09/09/17 15:59 Shock aspirin AdvReac See Comment Verified 09/09/17 15:59 Home Medications: Home Medications Calcium Carbonate [Calcium] 500 mg PO DAILY 09/09/17 [History Confirmed 09/09/17 ] Chlorthalidone TAB* [Hygroton TAB*] 0.5 tab PO DAILY 09/09/17 [History Confirmed 09/09/17] Cholecalciferol (Vitamin D3) [D3 Dots] 1 tab PO DAILY 09/09/17 [History Confirmed 09/09/17] Ferrous Sulfate [High Potency Iron] 2 tab PO DAILY 09/09/17 [History Confirmed 09/09/17] Pedi Multivit No.25/Folic Acid [Flintstones Multivit Chew Tab] 2 tab PO DAILY [History Confirmed 09/09/17] PMH/Surg Hx/FS Hx/Imm Hx Previously Healthy: Yes Cardiovascular History: Hypertension - Surgical History Surgical History: Yes Surgery Procedure, Year, and Place: sleeve Gastrectomy 11/2012, varicose vein ligation, Partial Hysterectomy, carpal tunnel right, decor vein right thumb. - Family History Known Family History: Positive: Cardiac Disease, Diabetes - Social History Alcohol Use: None Alcohol Amount: about 4x a year Substance Use Type: None Smoking Status (MU): Former Smoker Type: Cigarettes Amount Used/How Often: 2 PPD FOR ABOUT 25 YRS Have You Smoked in the Last Year: No When Did the Patient Quit Smoking/Using Tobacco: 2 YRS AGO - Immunization History Most Recent Influenza Vaccination: 2017 Most Recent Tetanus Shot: UNKNOWN Most Recent Pneumonia Vaccination: NA Review of Systems Constitutional: Negative ENT: Dental Pain All Other Systems Reviewed And Are Negative: Yes Physical Exam - Summary Physical Exam Summary: Appearance: Well-appearing, Well-nourished Skin: Warm Eyes: Normal ENT: Grayish appearing filling on tooth 14; Missing teeth#15 and 16, Exquisite tenderness over tooth and gums of tooth#14 with mild tenderness over left mandible and maxilla Neck: Supple, nontender Respiratory: Clear to auscultation Cardiovascular: Regular rate, regular rhythm. Normal S1, S2. Abdomen: Soft, nontender Musculoskeletal: Normal, Strength/ROM Intact Neurological: Normal, A&Ox3 Psychiatric: Normal General: No acute distress Triage Information Reviewed: Yes Vital Signs: Initial Vital Signs Temp 98.8 F 09/09/17 15:52 Pulse 87 09/09/17 15:52 Resp 20 09/09/17 15:52 BP 152/103 09/09/17 15:52 Pulse Ox 98 09/09/17 15:52 Vital Signs Reviewed: Yes Dental Complaint Course/Dx - Differential Dx/Diagnosis Provider Diagnoses: Periapical abscess. Htn due to acute illness Discharge - Sign-Out/Discharge Documenting (check all that apply): Patient Departure - Discharge Plan Condition: Stable Disposition: HOME Prescriptions: Clindamycin HCl 300 mg PO QID 10 Days #40 capsule oxyCODONE/Acetamin 5/325 MG* [Percocet 5/325 TAB*] 1 tab PO Q8H PRN 2 Days #6 tab MDD 3 PRN Reason: Pain Patient Education Materials: Dental Abscess (ED), Toothache (ED) Referrals: Eliceo Savage MD [Primary Care Provider] - Additional Instructions: Follow up with dentist KRISTEN - Billing Disposition and Condition Condition: STABLE Disposition: Home
== END 2017-09-09 16:30 | disposition home or self-care (01) ==
LOC: UCEAST 15:48
DX: K04.7 Periapical abscess without sinus (principal); I10 Essential (primary) hypertension; Z91.018 Allergy to other foods; Z91.09 Other allergy status, other than to drugs and biological substances; Z79.899 Other long term (current) drug therapy; Z87.891 Personal history of nicotine dependence
CPT/HCPCS: 99212; G0463

== ENCOUNTER 2018-07-17 12:01 | Emergency (ER) | payer OTHER ==
--- OUTSIDE RECORDS SUMMARY | 2018-07-17 12:07 | XMS REPORT | Continuity of Care Document ---
:1965 External Reference #:[id number] Author Name Maksim Serrano MD Address [address] [place] [address] Care Team Providers Name Role Phone Eliceo Savage M.D. 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 Primary Care Physician Unavailable Payers Date Identification Numbers Payment Provider Subscriber Effective: Policy Number: [id number] [employer] Prep[employer] Danielle Brody 2018 Group Number: [id number] [id number] [id number] Group Name: [id number] [id number] [place] [address] PayID: [id number] Advance Directives Description No Information Available Problems Active Problems Provider Date Essential hypertension Maksim Serrano MD Onset: 05/08/2018 Family History Date Family Member(s) Observation Comments General Hearing Loss General Heart Attack General Heart Disease General Migraine Social History Type Date Description Comments Sex 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 Tobacco Use Start: Unknown End: Former Cigarette Smoker 1 Quit at age 46 Unknown Pack Daily Tobacco Use Start: Unknown Never Smoked Cigars Tobacco Use Start: Unknown Never Smoked A Pipe Smokeless Tobacco Never Used Smokeless Tobacco ETOH Use Denies alcohol use Tobacco Use Start: Unknown End: Patient is a former smoker Unknown Smoking Status Reviewed: 06/26/18 Patient is a former smoker Allergies, Adverse Reactions, Alerts Active Allergies Reaction Severity Comments Date Aspirin Difficulty breathing 05/08/2018 Medications Active Medications SIG Qnty Indications Ordering Date Provider Oxybutynin Chloride ER Eliceo Savage M.D. 5mg Tablets ER 24HR Trazodone HCL Eliceo Savage 50mg M.D. Tablets Hydrocodone-Acetaminop take 1 tablet by Unknown hen mouth every 4 to 6 5-325mg Tablets hours if needed for pain maximum daily dose of 6 Chlorhexidine Rinse with 1/2 ounce Unknown Gluconate by mouth for 30 0.12% Solution seconds then spit out. use twice a day Afterbrushing Teeth Chlorthalidone Eliceo Savage 25mg M.D. Tablets Opurity 1 tab daily Unknown Tablets Iron once every other day Unknown 325(65Fe) mg Tablets Immunizations Description No Information Available Vital Signs Date Vital Result Comment 05/08/2018 10:28am Weight 250.00 lb Weight 113.400 kg Height 71.5 inches 5'11.50" Height in cm's 181.6 cm BMI (Body Mass Index) 34.4 kg/m2 Results Description No Information Available Procedures Date Code Description Status 05/08/2018 62050 Tympanometry Completed 05/08/2018 23033 Comprehensive Audiogram Completed Encounters Type Date Location Provider Dx Diagnosis Office Visit 06/26/2018 Hardy,After Maksim Serrano, R42 Dizziness and 11:15a 02/20/07 MD [place] H81.10 Benign paroxysmal vertigo, unspecified ear Office Visit 05/08/2018 [place],After Maksim Dozier81.10 Benign paroxysmal 10:30a 02/20/07 MD Maggie vertigo, unspecified ear R51 Headache Plan of Treatment No Information Available
[2018-07-17 12:12] VITALS: BP 160/98
--- NOTE | 2018-07-17 13:20 | UC ---
General HPI - HPI Summary HPI Summary: Patient here with - Initially had low back pain - started seeing Physical therapy - then developed right shoulder pain while getting PT. Called PCP to get shoulder therapy included in treatment. While she was getting treatment her shoulder pain has gotten worse. She saw her PCP last week 07/13 and was started on Lyrica and has been up titrating it per his recommendation. No improvement in pain and now with limited mobility. She is worried and frustrated. She is having intermittent numbness and tingling down her right arm and her 3rd and 4th digit gets intermittently numb and cold. Does have pain over right side of neck. Past two days is having some of her two digits in her left go cold. NOt currently numb or cold. Denies any trauma. Meds; Reviewed - History of Current Complaint Chief Complaint: UCUpperExtremity Stated Complaint: SHOULDER AND ARM PAIN Time Seen by Provider: 07/17/18 13:10 Hx Last Menstrual Period: menopausal Pain Intensity: 9 - Allergy/Home Medications Allergies/Adverse Reactions: Allergies Allergy/AdvReac Type Severity Reaction Status Date / Time tree nut Allergy Anaphylatic Verified 07/17/18 12:12 Shock aspirin AdvReac See Comment Verified 07/17/18 12:12 Home Medications: Home Medications Opurity Multivitamin 1 tab PO DAILY 07/17/18 [History Confirmed 07/17/18] Pregabalin CAP(*) [Lyrica CAP(*)] 25 mg PO BID 07/17/18 [History Confirmed 07/17] oxyCODONE/Acetamin 5/325 MG* [Percocet 5/325 TAB*] 2 tab PO Q8H PRN MDD 3 [History Confirmed 07/17/18] PMH/Surg Hx/FS Hx/Imm Hx Previously Healthy: Yes - Surgical History Surgical History: Yes Surgery Procedure, Year, and Place: sleeve Gastrectomy 11/2012, varicose vein ligation, Partial Hysterectomy, carpal tunnel BILATERAL , decor vein right/LEFT thumb. BILATERAL HIP REPLACEMENT - Family History Known Family History: Positive: Cardiac Disease, Diabetes - Social History Alcohol Use: Occasionally Alcohol Amount: about 4x a year Substance Use Type: Prescribed Smoking Status (MU): Former Smoker Type: Cigarettes Amount Used/How Often: 2 PPD FOR ABOUT 25 YRS Have You Smoked in the Last Year: No When Did the Patient Quit Smoking/Using Tobacco: 2 YRS AGO - Immunization History Most Recent Influenza Vaccination: 2017 Most Recent Tetanus Shot: UNKNOWN Most Recent Pneumonia Vaccination: NA Review of Systems All Other Systems Reviewed And Are Negative: Yes Musculoskeletal: Positive: Decreased ROM Physical Exam Triage Information Reviewed: Yes Appearance: Well-Appearing Vital Signs: Initial Vital Signs Temp 99.3 F 07/17/18 12:05 Pulse 98 07/17/18 12:05 Resp 18 07/17/18 12:05 BP 160/98 07/17/18 12:05 Pulse Ox 97 07/17/18 12:05 Musculoskeletal: Positive: Other: - right shoulder - minimal rom due to pain. normal upper ext strenght. Normal sensation. +2 radial pulses. All digits warm to touch. Diagnostics - Radiology right shoulder Radiology Interpretation Completed By: Radiologist Summary of Radiographic Findings: right shoulder xray: osteoarthritis, no acute injury Course/Dx - Course Course Of Treatment: This is a 52 yr old with worsening right should pain and immobility Assessment xray - osteoarthritis, no acute finding Plan Recommend referral to Orthopedics - go directly to Orthopedics [facility] Orthopedics willing to see her right now - Dr. Augustine - Diagnoses Provider Diagnosis: Adhesive capsulitis of left shoulder Discharge - Sign-Out/Discharge Documenting (check all that apply): Patient Departure All imaging exams completed and their final reports reviewed: Yes - Discharge Plan Condition: Good Disposition: HOME Patient Education Materials: Adhesive Capsulitis (ED) Referrals: Eliceo Savage MD [Primary Care Provider] - Additional Instructions: Go directly to Orthopedics - [facility] [address] Augustine - Billing Disposition and Condition Condition: GOOD Disposition: Home
== END 2018-07-17 14:36 | disposition home or self-care (01) ==
LOC: UCEAST 12:01
DX: M75.02 Adhesive capsulitis of left shoulder (principal); M25.511 Pain in right shoulder; Z91.018 Allergy to other foods; Z88.8 Allergy status to other drugs, medicaments and biological substances; Z87.891 Personal history of nicotine dependence
CPT/HCPCS: 99211; G0463